=== PATIENT | female | born 1980 | race American Indian/Alaskan Native ===

== ENCOUNTER 2016-10-08 23:30 | Emergency (ER) | payer MEDICAID ==
[2016-10-09] MEDS ORDERED: D5NS 0.2% 1,000 ML IV ONE (01:04)
[2016-10-09 06:10] VITALS: BP 117/56
[2016-10-09] MEDS ORDERED: DILAUDID IV ONE ×2 (06:14→07:34)
[2016-10-09] MEDS ORDERED: ZOFRAN IV ONE (06:14)
--- NOTE | 2016-10-09 06:18 | Emergency Department Report ---
ED General Adult HPI - General Chief complaint: Sickle Cell Crisis Stated complaint: SICKLE CELL PAIN Time Seen by Provider: 10/09/16 06:07 Source: patient, family Mode of arrival: Wheelchair Limitations: No Limitations - History of Present Illness Initial comments: 35-year-old female presents to the emergency department complaining of bilateral leg pain for the past 2 days. Pain is aching in nature and doesn't radiate. Patient states this is her same sickle cell pain. She also reports worsening pain in her left hip secondary to her avascular necrosis. Patient states she was scheduled to have surgery in [place], but moved to this area 3 months ago. In the past 3 months, the patient states she has not obtained a primary care physician. She is not currently on any home medications. There are no other complaints. -: Gradual, days(s) (2) Location: left, right, lower extremity Radiation: non-radiation Severity scale (0 -10): 10 Quality: aching Consistency: constant Improves with: none Worsens with: none Associated Symptoms: denies other symptoms Treatments Prior to Arrival: none - Related Data Previous Rx's Medication Instructions Recorded Last Taken Type oxyCODONE /ACETAMINOPHEN [Percocet 1 tab PO Q6HR PRN #20 tablet 10/09/16 Unknown Rx 5/325] Allergies Allergy/AdvReac Type Severity Reaction Status Date / Time NSAIDS (Non-Steroidal Allergy Intermediate Unknown Verified 07/14/16 18:51 Anti-Inflamma ED Review of Systems ROS: Stated complaint: SICKLE CELL PAIN Other details as noted in HPI Comment: All other systems reviewed and negative Musculoskeletal: arthralgia, myalgia ED Past Medical Hx - Past Medical History Previous Medical History?: Yes Hx Sickle Cell Disease: Yes (Type SC) Hx Asthma: Yes 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 - Surgical History Past Surgical History?: Yes Additional Surgical History: c-secx7, hernia, nerve - Family History Family history: no significant - Social History Smoking Status: Never Smoker Substance Use Type: None - Medications Home Medications: Home Medications Medication Instructions Recorded Confirmed Last Taken Type oxyCODONE /ACETAMINOPHEN [Percocet 1 tab PO Q6HR PRN #20 tablet 10/09/16 Unknown Rx 5/325] ED Physical Exam - General Limitations: No Limitations General appearance: alert, in no apparent distress - Head Head exam: Present: atraumatic, normocephalic - Eye Eye exam: Present: normal appearance, PERRL, EOMI - ENT ENT exam: Present: normal exam, normal orophraynx, mucous membranes moist - Neck Neck exam: Present: normal inspection, full ROM. Absent: tenderness - Respiratory Respiratory exam: Present: normal lung sounds bilaterally. Absent: respiratory distress - Cardiovascular Cardiovascular Exam: Present: regular rate, normal rhythm, normal heart sounds - GI/Abdominal GI/Abdominal exam: Present: soft, normal bowel sounds. Absent: distended, tenderness - Extremities Exam Extremities exam: Present: normal inspection, full ROM. Absent: tenderness - Back Exam Back exam: Present: normal inspection, full ROM. Absent: tenderness - Neurological Exam Neurological exam: Present: alert, oriented X3. Absent: motor sensory deficit - Skin Skin exam: Present: warm, dry, intact ED Course Vital Signs 10/09/16 10/09/16 10/09/16 00:59 06:08 06:41 Temperature 98.7 F 98.5 F Pulse Rate 77 75 Respiratory 18 18 18 Rate Blood Pressure 121/73 Blood Pressure 117/56 [Right] O2 Sat by Pulse 100 95 Oximetry 10/09/16 06:43 Temperature Pulse Rate Respiratory 18 Rate Blood Pressure Blood Pressure [Right] O2 Sat by Pulse 98 Oximetry ED Medical Decision Making - Lab Data Result diagrams: 10/09/16 06:10 - Medical Decision Making Laboratory results reviewed and discussed with the patient. Patient reports pain is much improved with medication. Patient will be discharged home at this time to follow up with a primary care physician. - Differential Diagnosis sickle cell pain crisis, anemia Critical care attestation.: If time is entered above; I have spent that time in minutes in the direct care of this critically ill patient, excluding procedure time. ED Disposition Clinical Impression: Sickle cell pain crisis Disposition: DISCHARGED TO HOME OR SELFCARE Is pt being admited?: No Condition: Stable Instructions: Sickle Cell Crisis (ED) Prescriptions: oxyCODONE /ACETAMINOPHEN [Percocet 5/325] 1 tab PO Q6HR PRN #20 tablet PRN Reason: Pain Referrals: URI MURCIA DO [Staff Physician] - 3-5 Days Time of Disposition: 08:22
[2016-10-09 06:23] LABS: Basophils % (Auto) 0.5 % (0.0-1.8); Hematocrit 33.8 % (30.3-42.9); Hemoglobin 11.4 gm/dl (10.1-14.3); Mean Corpuscular HGB Conc 34 % (30-34); Mean Corpuscular Hemoglobin 28 pg (28-32); Mean Corpuscular Volume 84 fl (79-97); Platelet Count 301 K/mm3 (140-440); Red Blood Count 4.04 M/mm3 (3.65-5.03); Red Cell Distribution Width 16.6 % (13.2-15.2); Reticulocyte % 1.43 % (0.78-2.58); White Blood Count 8.2 K/mm3 (4.5-11.0)
== END 2016-10-09 09:14 | disposition home or self-care (01) ==
LOC: ED 23:30
DX: D57.00 Hb-SS disease with crisis, unspecified (principal); J45.909 Unspecified asthma, uncomplicated
CPT/HCPCS: 36415; 85025; 85045; 96361; 96374; 96375; 96376; 99284; J1170; J2405

== ENCOUNTER 2016-11-01 23:35 | Emergency (ER) | payer MEDICAID ==
[2016-11-01 23:45] VITALS: BP 108/58
== END 2016-11-01 23:43 | disposition left against medical advice (07) ==
LOC: ED 23:35
DX: D57.00 Hb-SS disease with crisis, unspecified (principal); R07.9 Chest pain, unspecified; M79.604 Pain in right leg; M79.605 Pain in left leg; Z88.8 Allergy status to other drugs, medicaments and biological substances; Z53.21 Procedure and treatment not carried out due to patient leaving prior to being seen by health care provider
CPT/HCPCS: 93005; 93010

== ENCOUNTER 2016-12-28 22:52 | Inpatient (IN) | payer MEDICAID ==
[2016-12-28] MEDS ORDERED: D5NS 0.2% 1,000 ML IV SCH (23:45)
[2016-12-29] MEDS ORDERED: BENADRYL IV ONE (02:38)
[2016-12-29] MEDS ORDERED: DILAUDID IV ONE ×3 (02:38→05:12)
[2016-12-29] MEDS ORDERED: ZOFRAN IV ONE (02:38)
[2016-12-29 02:58] LABS: Basophils % (Auto) 0.8 % (0.0-1.8); Hematocrit 34.6 % (30.3-42.9); Hemoglobin 11.5 gm/dl (10.1-14.3); Mean Corpuscular HGB Conc 33 % (30-34); Mean Corpuscular Hemoglobin 27 pg (28-32); Mean Corpuscular Volume 83 fl (79-97); Platelet Count 230 K/mm3 (140-440); Red Blood Count 4.19 M/mm3 (3.65-5.03); Red Cell Distribution Width 18.5 % (13.2-15.2); Reticulocyte % 1.53 % (0.78-2.58); White Blood Count 5.4 K/mm3 (4.5-11.0)
[2016-12-29 03:15] LABS: Anion Gap 18 mmol/L; Blood Urea Nitrogen 6 mg/dL (7-17); Carbon Dioxide 20 mmol/L (22-30); Chloride 103.2 mmol/L (98-107); Glucose 84 mg/dL (65-100); Sodium 137 mmol/L (137-145)
[2016-12-29 03:47] LABS: INR 0.98 (0.87-1.13)
[2016-12-29 03:48] LABS: Partial Thromboplastin Time 27.4 Sec. (24.2-36.6)
[2016-12-29 05:15] LABS: Creatine Kinase 97 units/L (30-135)
[2016-12-29 05:22] LABS: Creatine Kinase MB < 1.0 ng/mL (0.0-4.0)
--- NOTE | 2016-12-29 05:33 | Emergency Department Report ---
ED General Adult HPI - General Chief complaint: Sickle Cell Crisis Stated complaint: CHEST PAIN Time Seen by Provider: 12/29/16 02:27 Source: patient, family Mode of arrival: Ambulatory Limitations: No Limitations - History of Present Illness Initial comments: 36-year-old female with past medical history asthma, dvt, sickle cell SC, and left avascular necrosis and chronic pain presents to the hospital complaining of chest pain 1 day, left leg pain secondary to sickle cell and a past necrosis , and diarrhea. No reports of abdominal pain, nausea, vomiting. Patient states she has had a cough productive of sputum and reports a recent temperature high of 100.3. She states other family members are household were sick and she was nursing the back to [facility]. Patient's chest pain is in the sternal area, described as intermittent pressure rated moderate to severe in intensity, worse with palpation and movement. Left leg pain also constant, severe, and hip pain worse with movement. Patient has a cane to aid with ambulation. Patient has a history of DVT and is currently on Coumadin. Denies [place] filter placement and she has not had a PE in the past. 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 Pt has not had a port in 5 years since it was removed due to infection. Severity scale (0 -10): 8 - Related Data Previous Rx's Medication Instructions Recorded Last Taken Type oxyCODONE /ACETAMINOPHEN [Percocet 1 tab PO Q6HR PRN #20 tablet 10/09/16 Unknown Rx 5/325] Allergies Allergy/AdvReac Type Severity Reaction Status Date / Time NSAIDS (Non-Steroidal Allergy Intermediate Unknown Verified 07/14/16 18:51 Anti-Inflamma ED Review of Systems ROS: Stated complaint: CHEST PAIN Other details as noted in HPI Comment: All other systems reviewed and negative Other: Constitutional: as per hpi Eyes: No eye pain visual changes ENT: No ear pain or throat pain Neck: Denies pain Respiratory: as per Cardiovascular: as per hpi GI: Denies abdominal pain : Denies dysuria Musculoskeletal: as per hpi Skin: Denies rash, lesions, erythema Neurologic: Denies headache, numbness, weakness Psychiatric: Denies suicidal ideation, hallucinations ED Past Medical Hx - Past Medical History Previous Medical History?: Yes Hx Deep Vein Thrombosis: Yes (on coumadin) Hx Sickle Cell Disease: Yes (Type SC) Hx Asthma: Yes 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 - Surgical History Past Surgical History?: Yes Additional Surgical History: c-secx7, hernia, nerve - Social History Smoking Status: Current Every Day Smoker Substance Use Type: None - Medications Home Medications: Home Medications Medication Instructions Recorded Confirmed Last Taken Type oxyCODONE /ACETAMINOPHEN [Percocet 1 tab PO Q6HR PRN #20 tablet 10/09/16 Unknown Rx 5/325] ED Physical Exam - General Limitations: No Limitations - Other Other exam information: General: Mild to moderate distress due to pain Head exam: Atraumatic, normocephalic Eyes exam: Normal appearance, pink conjunctivae ENT: Moist mucous membrane, normal oropharynx Neck exam: Normal inspection, full range of motion Respiratory exam: Clear to auscultation bilateral, no wheezes, rales, crackles. Reproducible sternal chest tenderness Cardiovascular: Normal rate and rhythm, normal heart sounds Abdomen: Soft, nondistended, and nontender, with normal bowel sounds, no rebound, or guarding Extremity: Limited motion of hip secondary to pain. Shortening or deformity Back: Normal Inspection, full range of motion, no tenderness Neurologic: Alert, oriented x3, cranial nerves intact, no motor or sensory deficit Psychiatric: normal affect, normal mood Skin: Warm, dry, intact ED Course Vital Signs 12/28/16 12/29/16 12/29/16 23:22 02:56 03:01 Temperature 98.8 F Pulse Rate 99 H 83 Respiratory 16 20 16 Rate Blood Pressure 116/75 108/38 [Right] O2 Sat by Pulse 100 100 Oximetry - Reevaluation(s) Reevaluation #1: 12/29/16 05:48 Patient received multiple doses of Dilaudid without improvement. - Consultations Consultation #1: 12/29/16 05:36 Pt requesting Ortho consult receive another opinion recording her avascular necrosis. Patient states other surgeons have recommended weight loss prior to surgery but patient states she will like another opinion. I ordered a hip and left pelvis x-ray and ordered a consult to be performed by Dr. Pardo or Jean-Claude. I did not speak to the physician and they can be called during the admission since it is a chronic ongoing issue. - EJ/Peripheral Line Neck L Time Out Performed: Yes Indications: nurses unable to establis Skin Cleansed in Sterile Fashion: Yes Size: 20 Dressing Placed: Tegaderm Patient Tolerated Procedure: well, no complications Neck R Time Out Performed: Yes Indications: nurses unable to establis Skin Cleansed in Sterile Fashion: Yes Size: 20 Patient Tolerated Procedure: well, no complications Additional Comments: initial EJ on the left infiltrated and had to be replaced. ED Medical Decision Making - Lab Data Result diagrams: 12/29/16 02:37 12/29/16 02:40 Lab Results 12/29/16 12/29/16 12/29/16 Range/Units 02:37 02:40 02:40 WBC 5.4 (4.5-11.0) K/mm3 RBC 4.19 (3.65-5.03) M/mm3 Hgb 11.5 (10.1-14.3) gm/dl Hct 34.6 (30.3-42.9) % MCV 83 (79-97) fl MCH 27 L (28-32) pg MCHC 33 (30-34) % RDW 18.5 H (13.2-15.2) % Plt Count 230 (140-440) K/mm3 Lymph % (Auto) 31.2 (13.4-35.0) % [place] % (Auto) 9.9 H (0.0-7.3) % Eos % (Auto) 1.0 (0.0-4.3) % Baso % (Auto) 0.8 (0.0-1.8) % Lymph # 1.7 (1.2-5.4) K/mm3 [place] # 0.5 (0.0-0.8) K/mm3 Eos # 0.1 (0.0-0.4) K/mm3 Baso # 0.0 (0.0-0.1) K/mm3 Seg Neutrophils % 57.1 (40.0-70.0) % Seg Neutrophils # 3.1 (1.8-7.7) K/mm3 Percent Retic 1.53 (0.78-2.58) % PT (12.2-14.9) Sec. INR (0.87-1.13) APTT (24.2-36.6) Sec. Sodium 137 (137-145) mmol/L Potassium 4.0 (3.6-5.0) mmol/L Chloride 103.2 (98-107) mmol/L Carbon Dioxide 20 L (22-30) mmol/L Anion Gap 18 mmol/L BUN 6 L (7-17) mg/dL Creatinine 0.6 L (0.7-1.2) mg/dL Estimated GFR > 60 ml/min BUN/Creatinine Ratio 10.00 % Glucose 84 (65-100) mg/dL Calcium 9.0 (8.4-10.2) mg/dL Total Creatine Kinase 97 (30-135) units/L CK-MB (CK-2) < 1.0 (0.0-4.0) ng/mL CK-MB (CK-2) Rel Index 1.0 (0-4) Troponin T < 0.010 (0.00-0.029) ng/mL 12/29/16 Range/Units 02:50 WBC (4.5-11.0) K/mm3 RBC (3.65-5.03) M/mm3 Hgb (10.1-14.3) gm/dl Hct (30.3-42.9) % MCV (79-97) fl MCH (28-32) pg MCHC (30-34) % RDW (13.2-15.2) % Plt Count (140-440) K/mm3 Lymph % (Auto) (13.4-35.0) % [place] % (Auto) (0.0-7.3) % Eos % (Auto) (0.0-4.3) % Baso % (Auto) (0.0-1.8) % Lymph # (1.2-5.4) K/mm3 [place] # (0.0-0.8) K/mm3 Eos # (0.0-0.4) K/mm3 Baso # (0.0-0.1) K/mm3 Seg Neutrophils % (40.0-70.0) % Seg Neutrophils # (1.8-7.7) K/mm3 Percent Retic (0.78-2.58) % PT 12.9 (12.2-14.9) Sec. INR 0.98 (0.87-1.13) APTT 27.4 (24.2-36.6) Sec. Sodium (137-145) mmol/L Potassium (3.6-5.0) mmol/L Chloride (98-107) mmol/L Carbon Dioxide (22-30) mmol/L Anion Gap mmol/L BUN (7-17) mg/dL Creatinine (0.7-1.2) mg/dL Estimated GFR ml/min BUN/Creatinine Ratio % Glucose (65-100) mg/dL Calcium (8.4-10.2) mg/dL Total Creatine Kinase (30-135) units/L CK-MB (CK-2) (0.0-4.0) ng/mL CK-MB (CK-2) Rel Index (0-4) Troponin T (0.00-0.029) ng/mL - EKG Data -: EKG Interpreted by Me (sinus rhythm rate 92) - EKG Data When compared to previous EKG there are: no significant change (compared to ) - Radiology Data Radiology results: image reviewed (cxr: naf) interpreted by me: left hip xray pending - Medical Decision Making Plan to admit patient to the hospital for the treatment given continued pain. Normal reticulocyte count and H&H. Hip x-ray and orthopedic consult was per patient request - Differential Diagnosis sickle cell, avascular necrosis, costochondritis, pneumonia Critical Care Time: No Critical care attestation.: If time is entered above; I have spent that time in minutes in the direct care of this critically ill patient, excluding procedure time. ED Disposition Clinical Impression: Sickle cell crisis, Sickle cell disease, type SC, Chest wall pain, Chronic left hip pain, Avascular necrosis, History of DVT (deep vein thrombosis), Subtherapeutic international normalized ratio (INR) Disposition: OP ADMITTED IP TO THIS HOSP Is pt being admited?: Yes Condition: Stable Time of Disposition: 05:32 (Dr Daley/hosp)
--- NOTE | 2016-12-29 07:15 | Admit Criteria Form ---
Admission Criteria Documentation: SICKLE CELL DISEASE Clinical Indications for Admission to Inpatient Care (Place 'X' for any and all applicable criteria): Admission is indicated for ANY ONE of the following(1)(2)(3)(4)(5): [X ]I. Inpatient admission required rather than observation care because of ANY ONE of the following: [ ]a) Altered mental status [ ]b) High fever or infection requiring inpatient admission as indicated by ANY ONE of the following: [ ]A. Appropriate outpatient observation care antimicrobial treatment unavailable, not effective, or not appropriate for infection [ ]B. Documented bacteremia [ ]C. Temp >104.9F (40.5C) (oral) [ ]D. Temp >103.1F (oral) or <96.8F(rectal) that does not respond to all emergency treatment measures [ ]c) Supplemental O2 or respiratory therapy for over 24 h that are performable only in acute inpatient setting [ ]d) Continuous parenteral narcoticsother major pain intervention for >24 h performable only in acute inpatient setting. [ ]e) Exchange transfusion [ X]f) Other condition, treatment or monitoring requiring inpatient admission [ ]II. Acute chest syndrome indicated by ALL of the following (10): [ ]a) New alveolar infiltrate involving at least one lung segment [ ]b) Associated pulmonary symptoms or findings as indicated by ANY ONE of the following: [ ]i) Chest pain [ ]ii) Hypoxemia [ ]iii) Tachypnea/dyspnea [ ]iv) Wheezing [ ]v) Cough [ ]vi) Sputum production [ ]III. Significant hypoxemia or acidosis (more severe than baseline) [ ]IV. Emergent surgery needed (eg, acute cholecystitis) [ ]V. -related complication(11) [ ]. Splenic or hepatic sequestration(12) [ ]VII. Aplastic crisis [ ]VIII. Priapism or other vascular complication(13) [ ]IX. Traumatic hyphema [A](14) [ ]X. Underlying condition requiring hospitalization (eg, osteomyelitis) [ ]XI. Signs or symptoms of central nervous system injury indicated by ANY ONE of the following: [ ]a) Stroke(9) [ ]b) Seizure [ ]c) Other significant central nervous system symptom or event [ ]XII. Acute renal failure Extended stay beyond goal length of stay may be needed for: [ ]a) Inadequate pain control [ ]b) Acute chest syndrome [ ]c) Sequestration or aplastic crisis (12) [ ]d) Pneumonia and asthma exacerbation [ ]e) Neurologic or vascular complications (25) [ ]f) Infection (eg, osteomyelitis) that requires ongoing treatment) The original [facility] [employer] content created by [facility] has been revised. The portions of the content which have been revised are identified through the use of italic text or in bold, and [facility] has neither reviewed nor approved the modified material. All other unmodified content is copyright [facility]. Please see references footnoted in the original [facility] edition 2016 Admission Criteria Met: Yes
[2016-12-29] MEDS ORDERED: PROAIR IH PRN (07:42)
--- NOTE | 2016-12-29 07:42 | History and Physical Report ---
History of Present Illness Date of examination: 12/29/16 History of present illness: 36-year-old female with past medical history asthma, dvt, sickle cell SC, and left avascular necrosis and chronic pain presents to the hospital complaining of chest pain 1 day, left leg pain secondary to sickle cell and a past necrosis , and diarrhea. No reports of abdominal pain, nausea, vomiting. Patient states she has had a cough productive of sputum and reports a recent temperature high of 100.3. She states other family members are household were sick and she was nursing the back to [facility]. Patient's chest pain is in the sternal area, described as intermittent pressure rated moderate to severe in intensity, worse with palpation and movement. Left leg pain also constant, severe, and hip pain worse with movement. Patient has a cane to aid with ambulation. Patient has a history of DVT and is currently on Coumadin. Denies [place] filter placement and she has not had a PE in the past. Patient's billing checker is Dr. Ma. Pt has not had a port in 5 years since it was removed due to infection Past History Past Medical History: GERD, other (sickle cell disease) Medications and Allergies Allergies Allergy/AdvReac Type Severity Reaction Status Date / Time NSAIDS (Non-Steroidal Allergy Intermediate Unknown Verified 07/14/16 18:51 Anti-Inflamma Home Medications Medication Instructions Recorded Confirmed Last Taken Type ALBUTEROL Inhaler [Proair] 2 puff IH QID PRN 12/29/16 12/29/16 12/28/16 History Cyclobenzaprine HCl [Flexeril 5 MG 5 mg PO TID 12/29/16 12/29/16 12/28/16 History TAB] Famotidine [Pepcid] 40 mg PO QHS 12/29/16 12/29/16 12/28/16 History Folic Acid 20 mg PO QDAY 12/29/16 12/29/16 12/28/16 History Active Meds: Active Medications Dextrose/Sodium Chloride (D5ns 0.2%) 1,000 mls @ 250 mls/hr IV DIRECT LETTY Last Admin: 12/29/16 03:10 Dose: 250 mls/hr Review of Systems Musculoskeletal: other (joint pain) Exam - Constitutional Vitals: Temp Pulse Resp BP Pulse Ox 98.8 F 91 H 18 116/50 98 12/28/16 23:22 12/29/16 05:42 12/29/16 05:42 12/29/16 05:42 12/29/16 05:42 General appearance: Present: mild distress - EENT Eyes: Present: PERRL, EOM intact ENT: hearing intact, clear oral mucosa - Neck Neck: Present: supple, normal ROM - Respiratory Respiratory effort: normal Respiratory: bilateral: CTA - Cardiovascular Rhythm: regular Heart Sounds: Present: S1 & S2 - Extremities Extremities: no ischemia, No edema Extremity abnormal: tenderness - Abdominal General gastrointestinal: Present: soft, non-tender, non-distended, normal bowel sounds - Musculoskeletal Musculoskeletal: strength equal bilaterally - Psychiatric Psychiatric: appropriate mood/affect, intact judgment & insight - Neurologic Neurologic: CNII-XII intact, moves all extremities Results - Labs CBC & Chem 7: 12/29/16 02:37 12/29/16 02:40 Labs: Laboratory Last Values WBC 5.4 K/mm3 (4.5-11.0) 12/29/16 02:37 RBC 4.19 M/mm3 (3.65-5.03) 12/29/16 02:37 Hgb 11.5 gm/dl (10.1-14.3) 12/29/16 02:37 Hct 34.6 % (30.3-42.9) 12/29/16 02:37 MCV 83 fl (79-97) 12/29/16 02:37 MCH 27 pg (28-32) L 12/29/16 02:37 MCHC 33 % (30-34) 12/29/16 02:37 RDW 18.5 % (13.2-15.2) H 12/29/16 02:37 Plt Count 230 K/mm3 (140-440) 12/29/16 02:37 Lymph % (Auto) 31.2 % (13.4-35.0) 12/29/16 02:37 [place] % (Auto) 9.9 % (0.0-7.3) H 12/29/16 02:37 Eos % (Auto) 1.0 % (0.0-4.3) 12/29/16 02:37 Baso % (Auto) 0.8 % (0.0-1.8) 12/29/16 02:37 Lymph # 1.7 K/mm3 (1.2-5.4) 12/29/16 02:37 [place] # 0.5 K/mm3 (0.0-0.8) 12/29/16 02:37 Eos # 0.1 K/mm3 (0.0-0.4) 12/29/16 02:37 Baso # 0.0 K/mm3 (0.0-0.1) 12/29/16 02:37 Seg Neutrophils % 57.1 % (40.0-70.0) 12/29/16 02:37 Seg Neutrophils # 3.1 K/mm3 (1.8-7.7) 12/29/16 02:37 Percent Retic 1.53 % (0.78-2.58) 12/29/16 02:37 PT 12.9 Sec. (12.2-14.9) 12/29/16 02:50 INR 0.98 (0.87-1.13) 12/29/16 02:50 APTT 27.4 Sec. (24.2-36.6) 12/29/16 02:50 Sodium 137 mmol/L (137-145) 12/29/16 02:40 Potassium 4.0 mmol/L (3.6-5.0) 12/29/16 02:40 Chloride 103.2 mmol/L (98-107) 12/29/16 02:40 Carbon Dioxide 20 mmol/L (22-30) L 12/29/16 02:40 Anion Gap 18 mmol/L 12/29/16 02:40 BUN 6 mg/dL (7-17) L 12/29/16 02:40 Creatinine 0.6 mg/dL (0.7-1.2) L 12/29/16 02:40 Estimated GFR > 60 ml/min 12/29/16 02:40 BUN/Creatinine Ratio 10.00 % 12/29/16 02:40 Glucose 84 mg/dL (65-100) 12/29/16 02:40 Calcium 9.0 mg/dL (8.4-10.2) 12/29/16 02:40 Total Creatine Kinase 97 units/L (30-135) 12/29/16 02:40 CK-MB (CK-2) < 1.0 ng/mL (0.0-4.0) 12/29/16 02:40 CK-MB (CK-2) Rel Index 1.0 (0-4) 12/29/16 02:40 Troponin T < 0.010 ng/mL (0.00-0.029) 12/29/16 02:40 Assessment and Plan - Patient Problems (1) Chest wall pain Current Visit: Yes Status: Acute Plan to address problem: Most likely secondary to Sickle cell disease, Adequate pain control, Hematology consult, O2, CXR, Hydroxyurea (2) Chronic left hip pain Current Visit: Yes Status: Acute Plan to address problem: patient has history of Avascular necrosis but has not had surgical repair secondary to obesity, Orthopedic consult (3) Sickle cell crisis Current Visit: Yes Status: Acute Plan to address problem: IVF hydration, Adequate pain control, Hematology consult, Folic acid, Hydroxyurea,
[2016-12-29] MEDS ORDERED: TYLENOL PO PRN (07:43)
[2016-12-29] MEDS ORDERED: DULCOLAX PR PRN (07:43)
[2016-12-29] MEDS ORDERED: PERCOCET 5/325 PO PRN (07:43)
[2016-12-29] MEDS ORDERED: MORPHINE IV PRN (07:43)
[2016-12-29] MEDS ORDERED: ZOFRAN IV PRN (07:43)
[2016-12-29] MEDS ORDERED: MILK OF MAGNESIA PO PRN (07:43)
[2016-12-29] MEDS ORDERED: NON-FORMULARY (Cyclobenzaprine Hcl [Flexeril 5 Mg Tab] 5 MG) PO SCH (08:00)
--- NOTE | 2016-12-29 08:14 | XRay Report ---
CHEST 1 VIEW INDICATION: Cough, chest wall pain. COMPARISON: None similar. FINDINGS: Portable, single, frontal chest radiograph demonstrates normal cardiomediastinal silhouette. Clear lungs. Intact bones. Patient tilted to the left. Few extrinsic artifacts noted about the neck. CONCLUSION: No acute disease in the chest. Thank you for the opportunity to participate in this patient's care.
[2016-12-29] MEDS: FLEXERIL PO SCH ×4 (08:43→23:09)
[2016-12-29] MEDS ORDERED: PROVENTIL IH PRN (09:14)
[2016-12-29] MEDS ORDERED: LOVENOX SUB-Q SCH (10:00)
[2016-12-29] MEDS ORDERED: FOLIC ACID 20 MG PO SCH (10:00)
[2016-12-29] MEDS: FOLVITE PO SCH (12:01)
[2016-12-29] MEDS: LOVENOX SUB-Q SCH (12:01)
[2016-12-29] MEDS: DILAUDID IV PRN ×3 (14:06→23:10)
--- NOTE | 2016-12-29 14:55 | Consultation ---
History of Present Illness - HPI Consult date: 12/29/16 Consult reason: joint pain Medications and Allergies Allergies Allergy/AdvReac Type Severity Reaction Status Date / Time NSAIDS (Non-Steroidal Allergy Intermediate Unknown Verified 07/14/16 18:51 Anti-Inflamma Home Medications Medication Instructions Recorded Confirmed Last Taken Type ALBUTEROL Inhaler [Proair] 2 puff IH QID PRN 12/29/16 12/29/16 12/28/16 History Cyclobenzaprine HCl [Flexeril 5 MG 5 mg PO TID 12/29/16 12/29/16 12/28/16 History TAB] Famotidine [Pepcid] 40 mg PO QHS 12/29/16 12/29/16 12/28/16 History Folic Acid 20 mg PO QDAY 12/29/16 12/29/16 12/28/16 History Active Meds: Active Medications Acetaminophen (Tylenol) 650 mg PO Q4H PRN PRN Reason: Pain MILD(1-3)/Fever >100.5/KEMP Albuterol (Proventil) 2.5 mg IH Q6HRT PRN PRN Reason: Shortness Of Breath Bisacodyl (Dulcolax) 10 mg [place] QDAY PRN PRN Reason: Constipation unrelieved by [facility] Cyclobenzaprine HCl (Flexeril) 5 mg PO TID [facility] Last Admin: 12/29/16 08:43 Dose: 5 mg Enoxaparin Sodium (Lovenox) 40 mg SUB-Q QDAY@1000 [facility] Last Admin: 12/29/16 12:01 Dose: 40 mg Famotidine (Pepcid) 40 mg PO [facility] Folic Acid (Folvite) 1 mg PO DAILY [facility] Last Admin: 12/29/16 12:01 Dose: 1 mg Hydromorphone HCl (Dilaudid) 2 mg IV Q4H PRN PRN Reason: Pain , Severe (7-10) Last Admin: 12/29/16 14:06 Dose: 2 mg Dextrose/Sodium Chloride (D5ns) 1,000 mls @ 125 mls/hr IV DIRECT [facility] Magnesium Hydroxide (Milk Of Magnesia) 30 ml PO Q4H PRN PRN Reason: Constipation Ondansetron HCl (Zofran) 4 mg IV Q8H PRN PRN Reason: N/V unrelieved by Reglan Oxycodone/Acetaminophen (Percocet 5/325) 1 tab PO Q6H PRN PRN Reason: Pain, Moderate (4-6) Assessment and Plan - Patient Problems (1) Avascular necrosis Current Visit: Yes Status: Chronic Plan to address problem: see voice dictation (2) Low back pain Current Visit: Yes Status: Chronic Qualifiers: Chronicity: C Back pain laterality: B Sciatica presence: S Sciatica laterality: S Plan to address problem: X ray L S spine/
--- NOTE | 2016-12-29 16:34 | XRay Report ---
AP AND LATERAL LUMBOSACRAL SPINE: The vertebral bodies are well mineralized and normal in alignment and vertebral height with well preserved interspace distances. The visualized portions of the posterior elements are normal. IMPRESSION: Normal study.
--- NOTE | 2016-12-29 16:38 | XRay Report ---
Left hip: History: Left hip pain/avascular necrosis. Routine views were obtained. Comparison is made to prior study of July 15, 2016. There is [id number] articulation of the superior joint. There is avulsion and sclerosis of a lateral superior acetabular spur that was previously attached. The left acetabulum appears shallow. Subchondral erosions are identified in the medial acetabulum and the articular margin of the medial hip is slightly irregular and inhomogeneous. Subchondral cyst is also noted superiorly. These findings were not previously noted. AP view of the right hip is unremarkable as are the SI joints, lower lumbar spine and bony pelvis. Impressions: Shallow left acetabulum, progressive degenerative left hip changes with avascular necrosis.
[2016-12-29] MEDS: D5NS 1,000 ML IV SCH (19:06)
--- NOTE | 2016-12-29 19:27 | Magnetic Resonance Report ---
FINAL REPORT PROCEDURE: MRI pelvis without contrast. TECHNIQUE: Magnetic resonance imaging of the pelvis was performed using standard sequences. CPT 04071 HISTORY: Left hip pain, AVN. COMPARISON: No prior studies are available for comparison. FINDINGS: The right hip appears normal. There is abnormal signal intensity involving the superior 3rd of the left femoral head. This has predominantly low signal intensity on T1 weighted imaging and brighter signal intensity on other sequences. There is mild flattening of the left femoral head. There is no significant collapse of the femoral head. The findings are consistent with avascular necrosis. There is a small left hip joint effusion. The surrounding muscles and subcutaneous fat are unremarkable. IMPRESSION: Avascular necrosis involving the left femoral head.
[2016-12-29] MEDS ORDERED: NON-FORMULARY (Famotidine [Pepcid] 40 MG) PO SCH (22:00)
[2016-12-29] MEDS: PEPCID PO SCH (23:08)
--- NOTE | 2016-12-29 23:44 | Consultation ---
CHIEF COMPLAINT: Pain, left hip, difficulty walking. HISTORY OF PRESENT ILLNESS: This is a 36-year-old female with increased BMI, known with sickle cell disease, admitted because of sickle cell crisis. She was in [place] where she was diagnosed with avascular necrosis, left hip and was recommended total hip arthroplasty. Subsequently, she moved to [facility]. She complains of pain to the buttocks region, left side, pain radiating into the posterior thigh and into the calf off and on, low back pain, and also pain into the anterior groin, left side radiating into the medial thigh and into the knee region. Pain is off and on, difficulty bearing weight and difficulty with walking. PHYSICAL EXAMINATION: Today reveals a female to her age, alert, oriented x 3. Vital signs appeared stable. She appears comfortable. Uses a cane for ambulation with moderate limping. Examination of hip area shows tenderness over the anterior hip, trochanteric region with pain on flexion, adduction, internal rotation. No leg length inequality. Quad strength, grade 5. Abductor strength grade 5. No neurovascular deficits. DIAGNOSTIC STUDIES: X-rays of the hip done approximately a year ago in this institution shows narrow joint space with mild deformity, femoral head and subchondral sclerosis consistent with avascular necrosis. DIAGNOSES: 1. Avascular necrosis, left hip. 2. Sickle cell disease with acute crisis. 3. Chronic pain. 4. Increased body mass index. 5. Low back pain. RECOMMENDATIONS: 1. Bed rest, pain control, and progressive ambulation, may need a walker, weightbearing as tolerated. We will ask physical therapy for evaluation. 2. We will need further workup of the left hip with MR scan as well as new x-rays to evaluate and staging the avascular necrosis Pending the outcome of this, she may consider elective total hip arthroplasty. Also, during this time, she is advised to continue with the weight loss plan. She has BMI is increased and therefore prognosis is poor.. She also complains of back pain, therefore we will obtain an x-ray of lumbar spine. I thank you for this consultation. JOB# [id number] LAVELLE/NATASHA STANLEY
[2016-12-30] MEDS: DILAUDID IV PRN ×4 (06:43→23:14)
[2016-12-30 07:02] LABS: Basophils % (Auto) 0.5 % (0.0-1.8); Eosinophils % (Auto) 2.5 % (0.0-4.3); Hematocrit 31.9 % (30.3-42.9); Hemoglobin 10.5 gm/dl (10.1-14.3); Mean Corpuscular HGB Conc 33 % (30-34); Mean Corpuscular Hemoglobin 28 pg (28-32); Mean Corpuscular Volume 84 fl (79-97); Platelet Count 234 K/mm3 (140-440); Red Blood Count 3.78 M/mm3 (3.65-5.03); Red Cell Distribution Width 18.7 % (13.2-15.2); White Blood Count 4.6 K/mm3 (4.5-11.0)
[2016-12-30 07:12] LABS: Alanine Aminotransferase 7 units/L (7-56); Albumin 3.3 g/dL (3.9-5); Albumin/Globulin Ratio 1.1 %; Alkaline Phosphatase 71 units/L (35-129); Anion Gap 15 mmol/L; Bilirubin,Total 0.2 mg/dL (0.1-1.2); Blood Urea Nitrogen 6 mg/dL (7-17); Calcium 8.6 mg/dL (8.4-10.2); Carbon Dioxide 23 mmol/L (22-30); Chloride 103.5 mmol/L (98-107); Glucose 93 mg/dL (65-100); Potassium 3.8 mmol/L (3.6-5.0); Sodium 138 mmol/L (137-145); Total Protein 6.3 g/dL (6.3-8.2)
[2016-12-30] MEDS: FLEXERIL PO SCH ×3 (08:52→21:51)
[2016-12-30] MEDS: LOVENOX SUB-Q SCH (10:59)
[2016-12-30] MEDS: FOLVITE PO SCH (11:00)
[2016-12-30] MEDS: HYDREA PO SCH (11:00)
[2016-12-30] MEDS ORDERED: PERCOCET 5/325 PO PRN (13:33)
[2016-12-30] MEDS: OxyCONTIN PO SCH (14:27)
--- NOTE | 2016-12-30 15:47 | Progress Note ---
Assessment and Plan Assessment and plan: Chest wall pain -Most likely secondary to Sickle cell disease, -cont Adequate pain control, Chronic left hip pain -patient has history of Avascular necrosis but has not had surgical repair secondary to obesity, -Orthopedic following, MRI result noted Sickle cell crisis -IVF hydration, Adequate pain control, -Hematology consult placed, Folic acid, Hydroxyurea, -Monitor H and H Morbid obesity, due to access calorie - dietary recommendation History Interval history: Pt seen and examined, c/o left hip pain tolerating diet, discussed plan of care at bedside Hospitalist Physical - Constitutional Vitals: Temp Pulse Resp BP Pulse Ox 98.1 F 91 H 20 101/64 92 12/30/16 11:15 12/30/16 11:15 12/30/16 11:15 12/30/16 11:15 12/30/16 08:00 General appearance: Present: mild distress, obese - EENT Eyes: Present: PERRL, EOM intact ENT: clear oral mucosa, dentition normal - Neck Neck: Present: supple, normal ROM - Respiratory Respiratory effort: normal Respiratory: bilateral: CTA - Cardiovascular Rhythm: regular Heart Sounds: Present: S1 & S2 - Extremities Extremities: No edema Peripheral Pulses: within normal limits - Abdominal General gastrointestinal: soft, non-tender, non-distended - Integumentary Integumentary: Present: warm, dry - Psychiatric Psychiatric: depressed - Neurologic Neurologic: no focal deficits Results - Labs CBC & Chem 7: 12/30/16 06:10 12/30/16 06:10 Labs: Laboratory Last Values WBC 4.6 K/mm3 (4.5-11.0) 12/30/16 06:10 RBC 3.78 M/mm3 (3.65-5.03) 12/30/16 06:10 Hgb 10.5 gm/dl (10.1-14.3) 12/30/16 06:10 Hct 31.9 % (30.3-42.9) 12/30/16 06:10 MCV 84 fl (79-97) 12/30/16 06:10 MCH 28 pg (28-32) 12/30/16 06:10 MCHC 33 % (30-34) 12/30/16 06:10 RDW 18.7 % (13.2-15.2) H 12/30/16 06:10 Plt Count 234 K/mm3 (140-440) 12/30/16 06:10 Lymph % (Auto) 46.7 % (13.4-35.0) H 12/30/16 06:10 [place] % (Auto) 10.9 % (0.0-7.3) H 12/30/16 06:10 Eos % (Auto) 2.5 % (0.0-4.3) 12/30/16 06:10 Baso % (Auto) 0.5 % (0.0-1.8) 12/30/16 06:10 Lymph # 2.2 K/mm3 (1.2-5.4) 12/30/16 06:10 [place] # 0.5 K/mm3 (0.0-0.8) 12/30/16 06:10 Eos # 0.1 K/mm3 (0.0-0.4) 12/30/16 06:10 Baso # 0.0 K/mm3 (0.0-0.1) 12/30/16 06:10 Seg Neutrophils % 39.4 % (40.0-70.0) L 12/30/16 06:10 Seg Neutrophils # 1.8 K/mm3 (1.8-7.7) 12/30/16 06:10 Percent Retic 1.53 % (0.78-2.58) 12/29/16 02:37 PT 12.9 Sec. (12.2-14.9) 12/29/16 02:50 INR 0.98 (0.87-1.13) 12/29/16 02:50 APTT 27.4 Sec. (24.2-36.6) 12/29/16 02:50 Sodium 138 mmol/L (137-145) 12/30/16 06:10 Potassium 3.8 mmol/L (3.6-5.0) 12/30/16 06:10 Chloride 103.5 mmol/L (98-107) 12/30/16 06:10 Carbon Dioxide 23 mmol/L (22-30) 12/30/16 06:10 Anion Gap 15 mmol/L 12/30/16 06:10 BUN 6 mg/dL (7-17) L 12/30/16 06:10 Creatinine 0.5 mg/dL (0.7-1.2) L 12/30/16 06:10 Estimated GFR > 60 ml/min 12/30/16 06:10 BUN/Creatinine Ratio 12.00 % 12/30/16 06:10 Glucose 93 mg/dL (65-100) 12/30/16 06:10 Calcium 8.6 mg/dL (8.4-10.2) 12/30/16 06:10 Total Bilirubin 0.2 mg/dL (0.1-1.2) 12/30/16 06:10 AST 11 units/L (5-40) 12/30/16 06:10 ALT 7 units/L (7-56) 12/30/16 06:10 Alkaline Phosphatase 71 units/L (35-129) 12/30/16 06:10 Total Creatine Kinase 97 units/L (30-135) 12/29/16 02:40 CK-MB (CK-2) < 1.0 ng/mL (0.0-4.0) 12/29/16 02:40 CK-MB (CK-2) Rel Index 1.0 (0-4) 12/29/16 02:40 Troponin T < 0.010 ng/mL (0.00-0.029) 12/29/16 02:40 Total Protein 6.3 g/dL (6.3-8.2) 12/30/16 06:10 Albumin 3.3 g/dL (3.9-5) L 12/30/16 06:10 Albumin/Globulin Ratio 1.1 % 12/30/16 06:10
[2016-12-30] MEDS: D5NS 1,000 ML IV SCH (17:49)
[2016-12-30] MEDS: PEPCID PO SCH (21:51)
[2016-12-31] MEDS: OxyCONTIN PO SCH ×2 (00:34→10:39)
[2016-12-31 05:08] LABS: Hematocrit 31.4 % (30.3-42.9); Hemoglobin 10.2 gm/dl (10.1-14.3)
[2016-12-31] MEDS: DILAUDID IV PRN ×2 (06:40→12:27)
[2016-12-31] MEDS: FLEXERIL PO SCH ×2 (08:54→16:00)
--- NOTE | 2016-12-31 09:11 | Discharge Summary ---
Providers - Providers Date of Admission: 12/29/16 07:43 Date of discharge: 12/31/16 Attending physician: DALLAS ROBBINS 12/29/16 14:45 Physical Therapy Evaluation and Treat [CONS] Routine Comment: Reason For Exam: AVN hip Weight bearing status?: Full wt bearing Assistive devices?: walker? Hospitalization Condition: Stable Hospital course: 36-year-old female with past medical history asthma, dvt not on anticoagulation , sickle cell disease, and left avascular necrosis with chronic pain presents to the hospital complaining of chest pain 1 day, worsening left leg pain. She had MRI of the left leg showed left hip avascular necrosis. LLE venous doppler was negative for any acute DVT. Her symptom improved with supportive care and pain management. Orthopedics recommended out pt follow up for elective hip replacement. Patient was ambulatory and noted to walk out of her room without any physical assistance. She was discharged home in stable condition. Discharge Diagnosis: Chest wall pain -Most likely secondary to Sickle cell disease, -resolved with Adequate pain control, Chronic left hip pain -patient has history of Avascular necrosis but has not had surgical repair secondary to obesity, -Orthopedic recommended outpt elective surgery and wt loss Sickle cell crisis -H and H remained stable -cont Folic acid, Hydroxyurea, Morbid obesity, due to access calorie - dietary recommendation H/o Asthma, not on any exacerbation H/o DVT, LE venous doppler was negative for any acute DVT. Disposition: DISCHARGED TO HOME OR SELFCARE Time spent for discharge: 32 minutes Core Measure Documentation - Palliative Care Palliative Care/ Comfort Measures: Not Applicable - Core Measures Any of the following diagnoses?: none Exam - Constitutional Vitals: Temp Pulse Resp BP Pulse Ox 98.4 F 77 18 99/60 98 12/31/16 05:00 12/31/16 05:00 12/31/16 05:00 12/31/16 05:00 12/31/16 00:00 General appearance: Present: no acute distress - EENT Eyes: Present: EOM intact ENT: clear oral mucosa - Neck Neck: Present: supple, normal ROM - Respiratory Respiratory: bilateral: CTA - Cardiovascular Rhythm: regular Heart Sounds: Present: S1 & S2 - Extremities Extremities: no ischemia Peripheral Pulses: within normal limits - Abdominal General gastrointestinal: Present: soft, non-tender - Integumentary Integumentary: Present: warm, dry - Psychiatric Psychiatric: intact judgment & insight - Neurologic Neurologic: moves all extremities Plan Activity: advance as tolerated Weight Bearing Status: Non-Weight Bearing Diet: low cholesterol, low salt Additional Instructions: F/U with orthopedic surgeon out patient for elective rt hip arthoplasty. Follow up with: JANESSA DENTON [Other] - 3-5 Days Prescriptions: Hydroxyurea [Hydrea] 500 mg PO QDAY #300 capsule oxyCODONE /ACETAMINOPHEN [Percocet 5/325 mg] 1 tab PO Q6H PRN #20 tablet PRN Reason: Pain, Moderate (4-6)
[2016-12-31 09:33] VITALS: BP 116/66
[2016-12-31] MEDS: HYDREA PO SCH (10:38)
[2016-12-31] MEDS: FOLVITE PO SCH (10:38)
[2016-12-31] MEDS: LOVENOX SUB-Q SCH (10:41)
--- NOTE | 2017-01-01 07:44 | Vascular Lab Report ---
Left Lower Extremity Venous Duplex Study: Reason for Exam: Pain of the left lower extremity. Comments on the Right: A limited duplex study was done of the proximal veins of the right lower extremity. All veins visualized are freely compressible without evidence of internal echogenicity. Flow is spontaneous and phasic throughout. No evidence of acute or chronic thrombus is seen in any of the vessels visualized. Comments on the Left: All veins visualized are freely compressible without evidence of internal echogenicity. Flow is spontaneous and phasic throughout. No evidence of acute or chronic thrombus is seen in any of the vessels visualized. Impression: No evidence of acute or chronic deep venous thrombosis in the left lower extremity.
== END 2016-12-31 16:08 | disposition home or self-care (01) | DRG 812 ==
LOC: ED 22:52 → 3A 12-29 07:43
PROVIDERS: ADMIT Internal Medicine; ATTEND Internal Medicine
PROC: 05HQ33Z Insertion of Infusion Device into Left External Jugular Vein, Percutaneous Approach (ICD-10-PCS; principal; 2016-12-29)
DX: D57.00 Hb-SS disease with crisis, unspecified (principal); M25.552 Pain in left hip; J45.909 Unspecified asthma, uncomplicated; G89.29 Other chronic pain; F17.210 Nicotine dependence, cigarettes, uncomplicated; K21.9 Gastro-esophageal reflux disease without esophagitis; E66.01 Morbid (severe) obesity due to excess calories; Z68.41 Body mass index [BMI] 40.0-44.9, adult; M87.852 Other osteonecrosis, left femur; Z86.718 Personal history of other venous thrombosis and embolism; Z79.01 Long term (current) use of anticoagulants; Z88.6 Allergy status to analgesic agent
CPT/HCPCS: 36415; 71010; 72100; 72195; 80048; 80053; 82550; 82553; 84484; 85014; 85018; 85025; 85045; 85610; 85730; 93005; 93010; 96361; 96374; 96375; 96376; J1170; J1200; J1650; J2270; J2405; J7042

== ENCOUNTER 2017-03-18 23:52 | Emergency (ER) | payer MEDICAID ==
[2017-03-19] MEDS ORDERED: D5NS 0.2% 1,000 ML IV SCH (01:00)
[2017-03-19 04:26] VITALS: BP 136/59
[2017-03-19 04:27] LABS: Basophils % (Auto) 0.8 % (0.0-1.8); Eosinophils % (Auto) 1.8 % (0.0-4.3); Hematocrit 32.9 % (30.3-42.9); Hemoglobin 11.5 gm/dl (10.1-14.3); Mean Corpuscular HGB Conc 35 % (30-34); Mean Corpuscular Hemoglobin 29 pg (28-32); Mean Corpuscular Volume 83 fl (79-97); Platelet Count 238 K/mm3 (140-440); Red Blood Count 3.96 M/mm3 (3.65-5.03); Red Cell Distribution Width 17.2 % (13.2-15.2); Reticulocyte % 1.52 % (0.78-2.58); White Blood Count 10.1 K/mm3 (4.5-11.0)
[2017-03-19] MEDS ORDERED: ZOFRAN IV ONE (04:35)
[2017-03-19] MEDS ORDERED: BENADRYL IV ONE (04:35)
[2017-03-19] MEDS ORDERED: DILAUDID IV ONE (04:36)
--- NOTE | 2017-03-19 07:21 | Emergency Department Report ---
ED General Adult HPI - General Chief complaint: Sickle Cell Crisis Stated complaint: SICKLE CELL PAIN Time Seen by Provider: 03/19/17 06:50 Source: patient, EMS Mode of arrival: Wheelchair Limitations: Physical Limitation - History of Present Illness Initial comments: Reports generalized pain that feels similar to past sickle cell crisis -: Gradual, days(s) Radiation: non-radiation Severity scale (0 -10): 3 Quality: aching Consistency: intermittent Improves with: none Worsens with: none Associated Symptoms: denies: confusion, chest pain, cough, diaphoresis, fever/ chills, headaches, loss of appetite, malaise, nausea/vomiting, rash, seizure, shortness of breath, syncope, weakness - Related Data Home Medications Medication Instructions Recorded Confirmed Last Taken ALBUTEROL Inhaler [ProAir HFA 2 puff IH QID PRN 12/29/16 12/29/16 12/28/16 Inhaler] Cyclobenzaprine HCl [Flexeril 5 MG 5 mg PO TID 12/29/16 12/29/16 12/28/16 TAB] Famotidine [Pepcid] 40 mg PO QHS 12/29/16 12/29/16 12/28/16 Folic Acid 20 mg PO QDAY 12/29/16 12/29/16 12/28/16 Previous Rx's Medication Instructions Recorded Last Taken Type Hydroxyurea [Hydrea] 500 mg PO QDAY #300 capsule 12/31/16 Unknown Rx oxyCODONE /ACETAMINOPHEN [Percocet 1 tab PO Q6H PRN #20 tablet 12/31/16 Unknown Rx 5/325 mg] Allergies Allergy/AdvReac Type Severity Reaction Status Date / Time NSAIDS (Non-Steroidal Allergy Intermediate Unknown Verified 07/14/16 18:51 Anti-Inflamma ED Review of Systems ROS: Stated complaint: SICKLE CELL PAIN Other details as noted in HPI Other: GENERAL: No weight change, fatigue, weakness, fever, chills, or night sweats SKIN: No changes in skin or hair, no itching, no rashes, no jaundice HEAD: No trauma, headache, or visual changes EYES: No blurriness, tearing, itching, acute visual loss, conjunctival discoloration, or scleral icterus EARS: No hearing loss, tinnitus, vertigo, or earache NOSE: No rhinorrhea, stuffiness, sneezing, itching, or epistaxis MOUTH: No bleeding gums, hoarseness, sore throat, or swelling CARDIAC: No new murmur, chest pain, palpitations, dyspnea on exertion, orthopnea , PND, or edema RESPIRATORY: No shortness of breath, wheeze, cough, sputum production, hemoptysis, pneumonia, asthma, bronchitis, or emphysema GI: No change in appetite, nausea, vomiting, dysphagia, change in bowel frequency, diarrhea, constipation, bleeding, hematemesis, melena, hematochezia, or abdominal pain URINARY: No frequency, urgency, polyuria, dysuria, hematuria, or incontinence MUSCULOSKELETAL: generalized pain that feels similar to past sickle cell crisis NEUROLOGIC: No loss of sensation, numbness, tingling, tremors, weakness, paralysis, seizures HEMATOLOGIC: No anemia, easy bruising, bleeding, petechiae, or purpura ENDOCRINE: No hot or cold intolerance, sweating, polyuria, polydipsia or, polyphagia no thyroid problems PSYCHIATRIC: No change in mood, no anxiety, no depression ED Past Medical Hx - Past Medical History Previous Medical History?: Yes Hx Hypertension: No Hx Heart Attack/AMI: No Hx Congestive Heart Failure: No Hx Diabetes: No Hx Deep Vein Thrombosis: Yes Hx Pulmonary Embolism: No Hx Sickle Cell Disease: Yes Hx Arthritis: Yes Hx Asthma: Yes Hx COPD: No Hx HIV: No 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, Stomach ulcers - Surgical History Hx Coronary Stent: No Additional Surgical History: [id number], hernia, nerve - Social History Smoking Status: Current Some Day Smoker - Medications Home Medications: Home Medications Medication Instructions Recorded Confirmed Last Taken Type ALBUTEROL Inhaler [ProAir HFA 2 puff IH QID PRN 12/29/16 12/29/16 12/28/16 History Inhaler] Cyclobenzaprine HCl [Flexeril 5 MG 5 mg PO TID 12/29/16 12/29/16 12/28/16 History TAB] Famotidine [Pepcid] 40 mg PO QHS 12/29/16 12/29/16 12/28/16 History Folic Acid 20 mg PO QDAY 12/29/16 12/29/16 12/28/16 History Hydroxyurea [Hydrea] 500 mg PO QDAY #300 capsule 12/31/16 Unknown Rx oxyCODONE /ACETAMINOPHEN [Percocet 1 tab PO Q6H PRN #20 tablet 12/31/16 Unknown Rx 5/325 mg] ED Physical Exam - General Limitations: Physical Limitation - Other Other exam information: GENERAL: Patient in no acute distress HEAD: Normocephalic, atraumatic EYES: PERRLA, EOM intact, no scleral icterus, no conjunctival hemorrhage, visual chapman and acuity wnl, NOSE: No tenderness, discharge, sinus tenderness MOUTH: No erythema, bleeding, exudate HEART: Regular rate and rhythm, no murmur, S1-S2 are auscultated, pulses are symmetric LUNGS: No wheezing, rales, rhonchi, bilateral breath sounds ABDOMEN: Normal bowel sounds, no tenderness, no rebound, no guarding, no masses , no CVA tenderness MUSCULOSKELETAL: Normal joint range of motion, no redness, no swelling, no tenderness NEUROLOGIC: GCS 15, Alert and Oriented x3, Cranial nerves intact, normal sensation, normal strength, normal gait, no cerebellar deficit PSYCHIATRIC: No homicidal or suicidal ideation, no anxiety, no depression, no hallucinations SKIN: Skin is warm and dry, no wounds, no rashes ED Course Vital Signs 03/19/17 03/19/17 03/19/17 00:41 04:25 06:08 Temperature 98.2 F Pulse Rate 88 72 Respiratory 20 17 18 Rate Blood Pressure 118/66 Blood Pressure 136/59 [Left] O2 Sat by Pulse 100 Oximetry ED Medical Decision Making - Lab Data Result diagrams: 03/19/17 04:00 - Medical Decision Making Patient comfortable. Updated with results. Plan discharge with outpatient follow-up. Patient agrees with plan and will return if symptoms worsen. Critical care attestation.: If time is entered above; I have spent that time in minutes in the direct care of this critically ill patient, excluding procedure time. ED Disposition Clinical Impression: Sickle cell crisis Disposition: DC-01 TO HOME OR SELFCARE Is pt being admited?: No Condition: Stable Instructions: Sickle Cell Crisis (ED) Referrals: PRIMARY CARE, [Primary Care Provider] - 3-5 Days Time of Disposition: 07:21
== END 2017-03-19 07:39 | disposition home or self-care (01) ==
LOC: ED 23:52
DX: D57.00 Hb-SS disease with crisis, unspecified (principal); M19.90 Unspecified osteoarthritis, unspecified site; J45.909 Unspecified asthma, uncomplicated; Z72.0 Tobacco use; Z88.8 Allergy status to other drugs, medicaments and biological substances
CPT/HCPCS: 36415; 85025; 85045; 96361; 96374; 96375; 99284; J1170; J1200; J2405

== ENCOUNTER 2017-03-24 07:48 | Emergency (ER) | payer MEDICAID ==
[2017-03-24] MEDS ORDERED: D5NS 0.2% 1,000 ML IV SCH (09:00)
[2017-03-24] MEDS ORDERED: NACL 0.9% 1000 ML 1,000 ML IV ONE (17:17)
[2017-03-24] MEDS ORDERED: NACL 0.9% 1000 ML 1,000 ML ONE (17:53)
[2017-03-24 18:38] LABS: Basophils % (Auto) 1.4 % (0.0-1.8); Eosinophils % (Auto) 1.2 % (0.0-4.3); Hematocrit 34.2 % (30.3-42.9); Hemoglobin 11.3 gm/dl (10.1-14.3); Mean Corpuscular HGB Conc 33 % (30-34); Mean Corpuscular Hemoglobin 28 pg (28-32); Mean Corpuscular Volume 83 fl (79-97); Platelet Count 279 K/mm3 (140-440); Red Blood Count 4.11 M/mm3 (3.65-5.03); Red Cell Distribution Width 16.3 % (13.2-15.2); White Blood Count 9.1 K/mm3 (4.5-11.0)
[2017-03-24 18:43] LABS: Bacteria,Urine 1+ /HPF (Negative); Bilirubin,Urine NEG (Negative); Blood,Urine MOD (Negative); Ketones,Urine NEG (Negative); Leukocyte Esterase,Urine MOD (Negative); Mucus,Urine FEW /HPF; Nitrite,Urine NEG (Negative); Protein,Urine <15 mg/dL mg/dL (Negative); Urobilinogen,Urine < 2.0 mg/dL (<2.0)
[2017-03-24] MEDS ORDERED: MORPHINE IV ONE (18:44)
[2017-03-24 18:56] LABS: INR 0.98 (0.87-1.13)
--- NOTE | 2017-03-24 19:34 | Emergency Department Report ---
ED Chest Pain HPI - General Chief Complaint: Sickle Cell Crisis Stated Complaint: ssd- arm and leg pain Time Seen by Provider: 03/24/17 17:17 Source: patient Mode of arrival: Ambulatory Limitations: No Limitations - History of Present Illness -: Gradual (out of perc) Pain Location: other (gen and b upper and lower extrem) Pain Radiation: none Severity: mild Severity scale (0 -10): 8 Quality: aching Consistency: intermittent Improves With: other (perc but out) Worsens With: nothing Context: recent travel (mother just and was in [place]) re: denies: nausea, vomting, diaphoresis, dyspnea, sense of impending doom Other Symptoms: denies: cough, fever, syncope, rash, acid taste in mouth, leg swelling, palpitations, burping Treatments Prior to Arrival: none - Related Data Home Medications Medication Instructions Recorded Confirmed Last Taken ALBUTEROL Inhaler [ProAir HFA 2 puff IH QID PRN 12/29/16 12/29/16 12/28/16 Inhaler] Cyclobenzaprine HCl [Flexeril 5 MG 5 mg PO TID 12/29/16 12/29/16 12/28/16 TAB] Famotidine [Pepcid] 40 mg PO QHS 12/29/16 12/29/16 12/28/16 Folic Acid 20 mg PO QDAY 12/29/16 12/29/16 12/28/16 Previous Rx's Medication Instructions Recorded Last Taken Type Hydroxyurea [Hydrea] 500 mg PO QDAY #300 capsule 12/31/16 Unknown Rx oxyCODONE /ACETAMINOPHEN [Percocet 1 tab PO Q6H PRN #20 tablet 12/31/16 Unknown Rx 5/325 mg] HYDROcodone/APAP 7.5-325 [Hemet 1 each PO Q6HR PRN #10 tablet 03/24/17 Unknown Rx 7.5-325 mg TAB] Allergies Allergy/AdvReac Type Severity Reaction Status Date / Time NSAIDS (Non-Steroidal Allergy Intermediate Unknown Verified 03/24/17 08:04 Anti-Inflamma Heart Score - HEART Score History: Slightly suspicious EKG: Normal Age: < 45 Risk factors: No known risk factors Troponin: < normal limit HEART Score: 0 - Critical Actions Critical Actions: 0-3 pts:0.9-1.7%risk of adverse cardiac event.Candidate for discharge ED Review of Systems ROS: Stated complaint: SICKLE CELL/CHEST PAIN Other details as noted in HPI Comment: All other systems reviewed and negative Constitutional: no symptoms reported, see HPI. denies: chills Eyes: as per HPI ENT: as per HPI. denies: ear pain, throat pain Respiratory: no symptoms reported, see HPI. denies: cough, orthopnea, shortness of breath, SOB with exertion, SOB at rest, stridor, wheezing Cardiovascular: as per HPI, chest pain. denies: palpitations, dyspnea on exertion, orthopnea, edema, syncope, paroxysmal nocturnal dyspnea Endocrine: no symptoms reported Gastrointestinal: as per HPI Genitourinary: as per HPI Musculoskeletal: as per HPI, other (pain of ssd). denies: joint swelling, arthralgia Skin: as per HPI Neurological: as per HPI. denies: headache, weakness Psychiatric: as per HPI Hematological/Lymphatic: as per HPI ED Past Medical Hx - Past Medical History Previous Medical History?: Yes Hx Hypertension: No Hx CVA: No Hx Heart Attack/AMI: No Hx Congestive Heart Failure: No Hx Diabetes: No Hx Deep Vein Thrombosis: Yes Hx Pulmonary Embolism: No Hx GERD: No Hx Liver Disease: No Hx Renal Disease: No Hx of Cancer: No Hx Sickle Cell Disease: Yes Hx Arthritis: Yes Hx Headaches / Migraines: No Hx Seizures: No Hx Kidney Stones: No Hx Psychiatric Treatment: No Hx Asthma: Yes Hx COPD: No Hx Tuberculosis: No Hx Dementia: No Hx HIV: No 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, Stomach ulcers - Surgical History Hx Coronary Stent: No Hx Open Heart Surgery: No Hx Pacemaker: No Hx Internal Defibrillator: No Hx Cholecystectomy: No Hx Appendectomy: No Hx Breast Surgery: No Additional Surgical History: c-secx7, hernia, nerve - Family History Family history: no significant - Social History Smoking Status: Current Every Day Smoker Substance Use Type: None - Medications Home Medications: Home Medications Medication Instructions Recorded Confirmed Last Taken Type ALBUTEROL Inhaler [ProAir HFA 2 puff IH QID PRN 12/29/16 12/29/16 12/28/16 History Inhaler] Cyclobenzaprine HCl [Flexeril 5 MG 5 mg PO TID 12/29/16 12/29/16 12/28/16 History TAB] Famotidine [Pepcid] 40 mg PO QHS 12/29/16 12/29/16 12/28/16 History Folic Acid 20 mg PO QDAY 12/29/16 12/29/16 12/28/16 History Hydroxyurea [Hydrea] 500 mg PO QDAY #300 capsule 12/31/16 Unknown Rx oxyCODONE /ACETAMINOPHEN [Percocet 1 tab PO Q6H PRN #20 tablet 12/31/16 Unknown Rx 5/325 mg] HYDROcodone/APAP 7.5-325 [Hemet 1 each PO Q6HR PRN #10 tablet 03/24/17 Unknown Rx 7.5-325 mg TAB] ED Physical Exam - General Limitations: No Limitations General appearance: alert, in no apparent distress - Head Head exam: Present: atraumatic - Eye Eye exam: Present: normal appearance - ENT ENT exam: Present: normal exam, mucous membranes moist - Neck Neck exam: Present: normal inspection - Respiratory Respiratory exam: Present: normal lung sounds bilaterally. Absent: respiratory distress, wheezes, rales, rhonchi, stridor - Cardiovascular Cardiovascular Exam: Present: regular rate, normal rhythm - GI/Abdominal GI/Abdominal exam: Present: soft. Absent: distended, tenderness, guarding, rebound, rigid, normal bowel sounds, diminished bowel sounds - Rectal Rectal exam: Present: deferred - Extremities Exam Extremities exam: Present: normal inspection, full ROM, normal capillary refill , other (full rom fine motor intact). Absent: tenderness, pedal edema, joint swelling, calf tenderness - Back Exam Back exam: Present: normal inspection, full ROM. Absent: tenderness, CVA tenderness (L) - Neurological Exam Neurological exam: Present: alert, altered, oriented X3, CN II-XII intact, normal gait (n for pt a/c l hip pain), reflexes normal. Absent: abnormal gait, motor sensory deficit - Psychiatric Psychiatric exam: Present: normal affect, normal mood. Absent: depressed, agitated, anxious, flat affect, manic, homicidal ideation - Skin Skin exam: Present: warm, dry, intact, normal color. Absent: rash ED Course Vital Signs 03/24/17 03/24/17 03/24/17 08:05 17:21 17:23 Temperature 98.3 F 98.2 F Pulse Rate 80 91 H Respiratory 18 16 16 Rate Blood Pressure 113/69 Blood Pressure 132/71 [Left] O2 Sat by Pulse 99 100 100 Oximetry 06/17/17 19:55 Temperature Pulse Rate Respiratory 18 Rate Blood Pressure Blood Pressure [Left] O2 Sat by Pulse Oximetry - Reevaluation(s) Reevaluation #1: 03/24/17 to er w co upper and lower b extremity pain co cp to rn but denied to me mom recently and pt out of town out of her pain meds ssd avascular nec w surg planned here on the has appnt w [facility] but wants local referral also has been referred by pcp to chronic pain md vss no cp no sob nad watching movie on her phone long discussion about her surg and how she could get directed blood from her daughter [facility] info given Reevaluation #2: 03/24/17 20:38 vss nad no cp has been medicated for pain Dr. Gay aware of care labs noted. dc home w follow up EZEQUIEL score - Ezequiel Score Age > 65: (0) No Aspirin use within the Past 7 Days: (0) No 3 or more CAD Risk Factors: (0) No 2 or more Angina events in past 24 hrs: (0) No Known CAD with more than 50% Stenosis: (0) No Elevated Cardiac Markers: (0) No ST Deviation Greater than 0.5mm: (0) No EZEQUIEL Score: 0 ED Medical Decision Making - Lab Data Result diagrams: 03/24/17 17:35 03/24/17 17:19 - EKG Data EKG shows normal: sinus rhythm Rate: normal - EKG Data When compared to previous EKG there are: no significant change Interpretation: no acute changes - Medical Decision Making a/c ssd out of pain meds retic wnl 12 lead nap preop for avascular nec labs noted medicated w relief dc home w dc poc Critical care attestation.: If time is entered above; I have spent that time in minutes in the direct care of this critically ill patient, excluding procedure time. ED Disposition Clinical Impression: Sickle cell disease, Pain, Chronic pain, Chest wall pain, Chronic left hip pain , Sickle cell disease, type SC, Avascular necrosis Disposition: DC-01 TO HOME OR SELFCARE Is pt being admited?: No Does the pt Need Aspirin: No Condition: Stable Instructions: Sickle Cell Crisis (ED) Additional Instructions: follow up with your pcp, pain management MD, [facility], and heme onc [place] for directed donor as we discussed home meds per MD in prep for surgery diet per routine hydrate well Prescriptions: HYDROcodone/APAP 7.5-325 [Hemet 7.5-325 mg TAB] 1 each PO Q6HR PRN #10 tablet PRN Reason: Pain Referrals: PRIMARY CARE, [Primary Care Provider] - 3-5 Days IFTIKHAR VERA MD [Staff Physician] - 3-5 Days Time of Disposition: 20:29
[2017-03-24] MEDS ORDERED: DILAUDID IV ONE ×2 (19:45→19:48)
[2017-03-24 20:03] LABS: Alanine Aminotransferase 8 units/L (7-56); Albumin 3.9 g/dL (3.9-5); Albumin/Globulin Ratio 1.3 %; Alkaline Phosphatase 81 units/L (35-129); Anion Gap 19 mmol/L; BUN/Creatinine Ratio 18.33; Blood Urea Nitrogen 11 mg/dL (7-17); Calcium 9.5 mg/dL (8.4-10.2); Carbon Dioxide 21 mmol/L (22-30); Chloride 101.7 mmol/L (98-107); Glucose 118 mg/dL (65-100); Potassium 4.1 mmol/L (3.6-5.0); Sodium 138 mmol/L (137-145); Total Protein 6.8 g/dL (6.3-8.2)
[2017-03-24 22:19] VITALS: BP 125/53
== END 2017-03-24 21:00 | disposition home or self-care (01) ==
LOC: ED 07:48
DX: D57.00 Hb-SS disease with crisis, unspecified (principal); G89.29 Other chronic pain; R07.89 Other chest pain; M25.552 Pain in left hip; M87.059 Idiopathic aseptic necrosis of unspecified femur; I82.409 Acute embolism and thrombosis of unspecified deep veins of unspecified lower extremity; M19.90 Unspecified osteoarthritis, unspecified site; J45.909 Unspecified asthma, uncomplicated; F17.200 Nicotine dependence, unspecified, uncomplicated; Z88.6 Allergy status to analgesic agent
CPT/HCPCS: 36415; 80053; 81001; 84702; 85025; 85045; 85610; 93005; 93010; 96361; 96374; 96375; 99284; J1170; J2270; J7030

== ENCOUNTER 2017-04-13 13:26 | Outpatient (CLI) | payer OTHER ==
--- NOTE | 2017-04-14 12:11 | Vascular Lab Report ---
LOWER EXTREMITY VENOUS DUPLEX: REASON FOR EXAM: Edema of the lower extremities. COMMENTS ON THE RIGHT: All veins visualized are freely compressible without evidence of internal echogenicity. Flow is spontaneous and phasic throughout. COMMENTS ON THE LEFT: All veins visualized are freely compressible without evidence of internal echogenicity. Flow is spontaneous and phasic throughout. IMPRESSION: No evidence of acute or chronic deep venous thrombosis in either lower extremity.
== END 2017-04-13 13:27 | disposition home or self-care (01) ==
LOC: VAS 13:26
PROVIDERS: ATTEND Internal Medicine Hematology & Oncology
DX: R60.0 Localized edema (principal); D64.9 Anemia, unspecified; J45.909 Unspecified asthma, uncomplicated; E66.01 Morbid (severe) obesity due to excess calories; J18.9 Pneumonia, unspecified organism; F32.9 Major depressive disorder, single episode, unspecified; F17.200 Nicotine dependence, unspecified, uncomplicated
CPT/HCPCS: 93970

== ENCOUNTER 2017-04-18 06:43 | Inpatient (IN) | payer MEDICAID, OTHER ==
--- NOTE | 2017-04-16 11:13 | Anesthesia Consultation ---
Anesthesia Consult and Med Hx Date of service: 04/16/17 - Airway Anesthetic Teeth Evaluation: Good ROM Head & Neck: Adequate Mental/Hyoid Distance: Adequate Mallampati Class: Class I Intubation Access Assessment: Good - Pulmonary Exam CTA: Yes - Cardiac Exam Cardiac Exam: RRR - Pre-Operative Health Status ASA Pre-Surgery Classification: ASA3 Proposed Anesthetic Plan: Epidural, Spinal - Pulmonary Hx Smoking: Yes (3 PER DAY- TRYING TO STOP) Hx Asthma: Yes (INHALER PRN) COPD: No Hx Pneumonia: Yes Hx Sleep Apnea: No (DAVID PRE SCREEN LOW RISK) - Cardiovascular System Hx Hypertension: No Hx Heart Attack/AMI: No Hx Angina: Yes Hx Pacemaker: No Hx Internal Defibrillator: No - Central Nervous System Hx Seizures: No Hx Back Pain: Yes Hx Psychiatric Problems: Yes - Gastrointestinal Hx Ulcer: Yes - Endocrine Hx Renal Disease: No Hx End Stage Renal Disease: No Hx Liver Disease: No - Hematic Hx Anemia: Yes (SICKLE CELL- MULTIPLE HOSPITALIZATIONS) Hx Sickle Cell Disease: Yes - Other Systems Hx Substance Use: Yes (MARIJUANA MONTHLY) Hx Cancer: No
[2017-04-16 11:20] LABS: Basophils % (Auto) 0.8 % (0.0-1.8); Eosinophils % (Auto) 1.8 % (0.0-4.3); Hematocrit 32.1 % (30.3-42.9); Hemoglobin 10.5 gm/dl (10.1-14.3); Mean Corpuscular HGB Conc 33 % (30-34); Mean Corpuscular Hemoglobin 28 pg (28-32); Mean Corpuscular Volume 85 fl (79-97); Platelet Count 268 K/mm3 (140-440); Red Blood Count 3.79 M/mm3 (3.65-5.03); White Blood Count 7.8 K/mm3 (4.5-11.0)
[2017-04-16 11:37] LABS: Alanine Aminotransferase 7 units/L (7-56); Albumin 3.6 g/dL (3.9-5); Albumin/Globulin Ratio 1.1 %; Alkaline Phosphatase 67 units/L (35-129); Anion Gap 16 mmol/L; BUN/Creatinine Ratio 16.66; Bilirubin,Total < 0.20 mg/dL (0.1-1.2); Blood Urea Nitrogen 10 mg/dL (7-17); Calcium 8.8 mg/dL (8.4-10.2); Carbon Dioxide 23 mmol/L (22-30); Chloride 104.7 mmol/L (98-107); Glucose 99 mg/dL (65-100); Sodium 140 mmol/L (137-145); Total Protein 6.9 g/dL (6.3-8.2)
[~2017-04-18 06:43] MED LIST: ANCEF/STERILE WATER 2 GM/20 ML 2 GM/20 ML SYRINGE IV NR; NACL 0.9% 500 ML 500 ML IV SCH; PEPCID IV NR; VERSED IV NR
[2017-04-18] MEDS ORDERED: ZOFRAN IV PRN ×2 (06:57→14:36)
[2017-04-18] MEDS ORDERED: DIPRIVAN 10 MG/ML IV ONE ×2 (07:15→09:32)
[2017-04-18] MEDS ORDERED: ZEMURON IV ONE ×2 (07:18→09:59)
[2017-04-18] MEDS ORDERED: SUBLIMAZE ONE (07:18)
[2017-04-18] MEDS ORDERED: XYLOCAINE MPF 2% ONE (07:18)
--- NOTE | 2017-04-18 07:28 | History and Physical Report ---
History of Present Illness Date of examination: 04/18/17 Date of admission: 04/18/17 06:43 Chief complaint: Left hip pain, difficulty walking. Duration several years progressively worsening. Seen in December of this year on consultation, severe avascular necrosis left hip was confirmed. Recommended total hip arthroplasty being admitted for same. Past History Past Medical History: anemia (copd, Sickle cell disease) Medications and Allergies Allergies Allergy/AdvReac Type Severity Reaction Status Date / Time NSAIDS (Non-Steroidal Allergy Intermediate Hives Verified 04/09/17 12:31 Anti-Inflamma Home Medications Medication Instructions Recorded Confirmed Last Taken Type ALBUTEROL Inhaler [ProAir HFA 2 puff IH QID PRN 12/29/16 04/09/17 12/28/16 History Inhaler] Hydroxyurea [Hydrea] 500 mg PO QDAY #300 capsule 12/31/16 04/09/17 Unknown Rx Iron 18 mg PO QDAY 04/09/17 04/09/17 Unknown History Active Meds: Active Medications Famotidine (Pepcid) 20 mg IV PREOP NR Stop: 04/18/17 23:59 Hydromorphone HCl (Dilaudid) 0.5 mg IV Q10MIN PRN PRN Reason: Pain , Severe (7-10) Stop: 04/21/17 06:58 Sodium Chloride (Nacl 0.9% 1000 Ml) 1,000 mls @ 75 mls/hr IV DIRECT LETTY Cefazolin Sodium (Ancef/Sterile Water 2 Gm/20 Ml) 2 gm in 20 mls @ 80 mls/hr IV PREOP NR PRN Reason: Protocol Stop: 04/18/17 23:02 Midazolam HCl (Versed) 2 mg IV PREOP NR Stop: 04/18/17 23:59 Review of Systems All systems: negative Exam - Constitutional Vitals: Temp Pulse Resp BP Pulse Ox 97.9 F 70 20 110/70 04/16/17 11:00 04/16/17 11:00 04/16/17 11:00 04/16/17 11:00 General appearance: Present: no acute distress, well-nourished - EENT Eyes: Present: PERRL ENT: hearing intact, clear oral mucosa - Neck Neck: Present: supple, normal ROM - Respiratory Respiratory effort: normal Respiratory: bilateral: CTA - Cardiovascular Heart Sounds: Present: S1 & S2. Absent: rub, click - Extremities Extremities: pulses symmetrical, No edema, abnormal (Left hip with severe painful limitation of movement, no leg length abnormalities. Pain with flexion and adduction internal rotation.) Peripheral Pulses: within normal limits - Abdominal General gastrointestinal: Present: soft, non-tender, non-distended, normal bowel sounds Female genitourinary: Present: normal - Integumentary Integumentary: Present: clear, warm, dry - Musculoskeletal Musculoskeletal: gait normal, strength equal bilaterally - Psychiatric Psychiatric: appropriate mood/affect, intact judgment & insight - Neurologic Neurologic: CNII-XII intact, moves all extremities Results - Labs CBC & Chem 7: 04/16/17 11:00 04/16/17 11:00 Assessment and Plan - Patient Problems (1) Avascular necrosis Current Visit: No Status: Chronic Plan to address problem: Left total hip arthroplasty. Procedure, complications and outcome discussed with. Recovery rehabilitation course also discussed and all questions are answered. Preoperative seen with primary care and carton stapler prior to surgery for preop medical evaluation and stabilization.
[2017-04-18] MEDS ORDERED: NEOSPORIN GU IR ONE ×3 (07:31→09:48)
[2017-04-18] MEDS ORDERED: NACL 0.9% 1000 ML 1,000 ML ONE ×2 (07:37→09:44)
--- NOTE | 2017-04-18 07:37 | Anesthesia Day of Surgery ---
Anesthesia Day of Surgery - Day of Surgery Patient Examined: Yes Patient H&P Reviewed: Yes Patient is NPO: Yes
[2017-04-18] MEDS: NACL 0.9% 1000 ML 1,000 ML IV SCH (08:22)
[2017-04-18] MEDS ORDERED: ACD-A 500 ML IV ONE (08:53)
[2017-04-18] MEDS ORDERED: NEOSTIGMINE ONE (09:08)
[2017-04-18] MEDS ORDERED: ROBINUL ONE ×2 (09:08→10:50)
[2017-04-18] MEDS ORDERED: ZOFRAN ONE (09:08)
[2017-04-18] MEDS ORDERED: NACL 0.9% IR ONE ×2 (09:15→09:48)
[2017-04-18] MEDS ORDERED: DILAUDID ONE (09:26)
[2017-04-18] MEDS ORDERED: BREVIBLOC IV ONE (09:38)
[2017-04-18] MEDS ORDERED: APRESOLINE ONE (09:46)
[2017-04-18] MEDS ORDERED: WATER FOR IRRIG STERILE IR ONE (10:43)
[2017-04-18] MEDS ORDERED: PROAIR IH PRN (10:50)
--- NOTE | 2017-04-18 10:51 | Procedure Note ---
Date of procedure: 04/18/17 Pre-op diagnosis: AVn left hip Post-op diagnosis: same Procedure: left total hip arthroplasty, Hany, non cemented Anesthesia: GETA Surgeon: SLICK CANCINO Estimated blood loss: other (400 ml/ 200 ml packed cell to pt with cell saver) Pathology: list (fem head) Specimen disposition: to lab Condition: stable Disposition: PACU
[2017-04-18] MEDS ORDERED: PROVENTIL IH PRN (11:20)
[2017-04-18] MEDS: DILAUDID IV PRN ×6 (11:32→21:03)
--- NOTE | 2017-04-18 11:50 | XRay Report ---
LEFT HIP, ONE VIEW History: Postoperative film. Findings: Recent left hip arthroplasty changes are noted. The hardware appears well applied. No acute fracture or malalignment is appreciated. Impression: Stable appearance of the left hip prosthesis.
[2017-04-18] MEDS: VERSED IV PRN ×2 (13:00→13:25)
--- NOTE | 2017-04-18 14:05 | Post Anesthesia Evaluation ---
- Post Anesthesia Evaluation Patient Participated: Yes Airway Patent: Yes Stable Respiratory Function: Yes Temp > 96.8F: Yes Pain Manageable: Yes Adequeate Hydration: Yes Anesthesia Complications: No Block Receding Appropriately: Not Applicable
[2017-04-18] MEDS ORDERED: MILK OF MAGNESIA PO PRN (14:36)
[2017-04-18] MEDS ORDERED: AMBIEN PO PRN (14:36)
[2017-04-18] MEDS ORDERED: MORPHINE IV PRN ×2 (14:36)
[2017-04-18] MEDS ORDERED: SODIUM CHLORIDE FLUSH SYRINGE 10 ML IV PRN (14:36)
[2017-04-18] MEDS ORDERED: PHENERGAN PR PRN (14:36)
--- NOTE | 2017-04-18 15:02 | Admit Criteria Form ---
Admission Criteria Documentation: AMBULATORY SURGERY EXCEPTION CRITERIA Ambulatory Surgery Exception Criteria ( Place 'X' for any and all applicable criteria): Surgery or procedure performed on ambulatory basis may require inpatient stay for[A] ANY ONE of the following(1)(2)(3)(4)(5)(6)(7)(8)(9): [X] I. A preoperative situation, condition, or finding that warrants inpatient stay as indicated by ANY ONE of the following: [] a) Inpatient care needed because of severity of a disease or condition rather than the surgery (eg, severe cardiac or respiratory disease, severe infection) (15) (16 ) (17) (18) [] b) Emergent procedure (eg, angioplasty for acute ischemia)(19) [] c) Complex surgical approach or situation as indicated by ANY ONE of the following(3): [] i) Open approach needed instead of usual endoscopic, transcatheter, or other less invasive procedure [] ii) Difficult approach because of previous operation [] iii) Airway monitoring required after open neck procedures(20)(21) [] iv) Large mass requiring unusually extensive dissection [] v) Additional complicating feature requiring inpatient care (eg, drain management)(22(23): [X] d) Major surgery in a pt with high anesthetic risk as indicated by ANY ONE of the following (2)(3)(5)(7)(8): [X] i) ASA risk class III or higher (severe systemic disease impairing function) [D] [] ii) Advanced age (eg, older than 85 years)(14)(24) [] iii) Symptomatic heart failure(25) [] iv) Symptomatic asthma or COPD(8)(21) [] v) Morbid obesity with hemodynamic or respiratory problems(20)( 21)(26)(27) [] vi) Obstructive sleep apnea(20)(21) [] vii) Former premature infants who are younger than 60 weeks [] viii) High risk for severe postoperative abnormalities (eg, severe postoperative hypocalcemia after parathyroidectomy for severe hyperparathyroidism)(27)( 28) [] ix) Unstable angina(25) [] e) Drug-related risk requiring inpatient stay as indicated by ANY ONE of the following(5)(10)(14)(32)(33) [] i) Procedure requires discontinuing drugs or other therapy (eg , antiarrhythmic medication, antiseizure medication), which necessitates inpatient observation or treatment.(18)(31) [] ii) Major surgery and high risk drug use as indicated by ANY ONE of the following: [] 1) Active abuse of cocaine or similar drug [] 2) Monoamine oxidase inhibitor use [] 3) Other drug identified as posing risk [] f) Inadequate outpatient care situation as indicated by ANY ONE of the following(5)(10)(14)(32)(33) [] i) Patient lives remote from medical facility and procedure has urgent complication potential, and temporary nearby residence cannot be arranged [] ii) Patient will have postprocedure incapacitation and inadequate assistance at home, or alternative level of care cannot be arranged. [] iii) Patient will have long general anesthesia or procedure side effect resolution time, and competent person to stay with patient on first postoperative night at home or alternative level of care cannot be arranged. []iv) Other inadequate outpatient situation that cannot be handled by other means [] II. A perioperative event, condition, or finding that warrants inpatient stay as indicated by ANY ONE of the following (1)(2)(3): [] a) Inadequate physiologic recovery: cardiovascular, respiratory, or hemodynamic status not normal or near preoperative baseline(18) [] b) Hemodynamic instability [] c) Patient not alert with near normal or baseline mental status [] d) Temperature not normal or as expected and not appropriate for outpatient treatment of condition [] e) Ambulatory or appropriate activity level status not yet achieved post procedure [E](34)(35)(36) [] f) Operative site not appropriate (eg, unexpected or excessive drainage or bleeding) [] g) Postoperative effects not resolved or adequately managed (eg, significant pain or vomiting not appropriate for outpatient or next level of care)(10)(12) [] h) Complicating features requiring inpatient care as indicated by ANY ONE of the following(37): [] i) Severe complications of procedure (eg, bowel injury, airway compromise, vascular injury,severe hemorrhage) [] ii) Extensive (eg, dissection far beyond usual scope of procedure ) or prolonged (eg, 120 minutes beyond usual) surgery needed requiring inpatient postoperative care [] iii) Conversion to an open or complex procedure that requires inpatient care (eg, open vs laparoscopic cholecystectomy, abdominal vs vaginal hysterectomy)(38) [] iv) Comorbid condition or test result identified during or post procedure that requires inpatient care (7) [] v) Malignant hyperthermia(30) [] vi) Other complicating feature requiring inpatient care(22)(23) Inpatient stay may be needed until ALL of the following are present (1)(2)(3)(4) (5)(6)(10)(14)(33)(40): []a) Physiologic recovery: cardiovascular, respiratory, and hemodynamic status normal or near preoperative baseline []b) Hemodynamic stability []c) Patient alert, with near normal or baseline mental status []d) Temperature appropriate: patient afebrile or temperature appropriate for outpt treatment of condition []e) Activity level appropriate: ambulatory or appropriate activity level post procedure []f) Operative site appropriate as indicated by ALL of the following: []i) Site dry or with expected drainage []ii) Any blood noted is as expected for procedure. []g) Postoperative effects resolved or managed as indicated by ALL of the following: []i) Pain management appropriate for outpatient (or next level of) care(10) []ii) Minimal nausea and vomiting: if present, successfully treated with oral medication(12) []iii) Headache, dizziness, or drowsiness (if present) are mild. []h) Voiding status acceptable as indicated by ANY ONE of the following: []i) Voiding spontaneously []ii) No voiding but instructions given for follow-up in 6 to 8 hours []iii) Urinary catheter in place, and instructions given for follow-up []i) Complicating features requiring inpatient care manageable at a lower level of care(37) []j) Comorbid conditions manageable at a lower level of care(37) The original [employer] content created by [employer] has been revised. The portions of the content which have been revised are identified through the use of italic text or in bold, and [facility] [employer] has neither reviewed nor approved the modified material. All other unmodified content is copyright [employer]. Please see references footnoted in the original [employer] edition 2016 Admission Criteria Met: Yes
[2017-04-18] MEDS: PERCOCET 5/325 PO PRN (15:23)
[2017-04-18] MEDS: ANCEF/NS 1 GM/50 ML 1 GM/50 ML BAG IV SCH (16:40)
[2017-04-18] MEDS: COLACE PO SCH (21:03)
--- NOTE | 2017-04-18 21:38 | Consultation ---
History of Present Illness - Reason for Consult Consult date: 04/18/17 medical management Requesting physician: SLICK CANCINO - History of Present Illness 36-year-old -Ch[place]an female with history of sickle cell anemia and asthma chronic pain had a left hip replacement today. Was asked to manage medically. Patient has chronic pain. Also asthma which is not active at this point. Complains of pain all over and left hip Joint. Postop patient doing well. Past History Past Medical History: anemia (copd, Sickle cell disease), other (asthma, chronic pain) Past Surgical History: total hip replacement (left total hip replacement today) Social history: lives with family, smoking Medications and Allergies Allergies Allergy/AdvReac Type Severity Reaction Status Date / Time NSAIDS (Non-Steroidal Allergy Intermediate Hives Verified 04/09/17 12:31 Anti-Inflamma Home Medications Medication Instructions Recorded Confirmed Last Taken Type ALBUTEROL Inhaler [ProAir HFA 2 puff IH QID PRN 12/29/16 04/18/17 04/04/17 History Inhaler] Hydroxyurea [Hydrea] 500 mg PO QDAY #300 capsule 12/31/16 04/09/17 04/17/17 Rx Iron 18 mg PO QDAY 04/09/17 04/09/17 04/17/17 History Active Meds: Active Medications Acetaminophen (Tylenol) 650 mg PO Q4H PRN PRN Reason: Pain MILD(1-3)/Fever >100.5/KEMP Albuterol (Proventil) 2.5 mg IH QIDRT PRN PRN Reason: Shortness Of Breath Docusate Sodium (Colace) 100 mg PO BID [facility] Last Admin: 04/18/17 21:03 Dose: 100 mg Enoxaparin Sodium (Lovenox) 40 mg SUB-Q QDAY LETTY Ferrous Sulfate (Feosol) 325 mg PO DAILY LETTY Hydromorphone HCl (Dilaudid) 1 mg IV Q3H PRN PRN Reason: Pain , Severe (7-10) Last Admin: 04/18/17 21:03 Dose: 1 mg Hydroxyurea (Hydrea) 500 mg PO QDAY [facility] Sodium Chloride (Nacl 0.9% 1000 Ml) 1,000 mls @ 75 mls/hr IV DIRECT LETTY Last Admin: 04/18/17 08:22 Dose: 75 mls/hr Cefazolin Sodium (Ancef/Ns 1 Gm/50 Ml) 1 gm in 50 mls @ 100 mls/hr IV Q8H [facility] Stop: 04/19/17 00:29 Last Admin: 04/18/17 16:40 Dose: 100 mls/hr Magnesium Hydroxide (Milk Of Magnesia) 30 ml PO Q4H PRN PRN Reason: Constipation Midazolam HCl (Versed) 1 mg IV ONCE PRN PRN Reason: Agitation Last Admin: 04/18/17 13:25 Dose: 1 mg Morphine Sulfate (Morphine) 2 mg IV Q4H PRN PRN Reason: Pain, Moderate (4-6) Last Admin: 04/18/17 15:16 Dose: 2 mg Morphine Sulfate (Morphine) 4 mg IV Q4H PRN PRN Reason: Pain , Severe (7-10) Last Admin: 04/18/17 19:09 Dose: 4 mg Multivitamins (Theragran Tab) 1 each PO QDAY [facility] Ondansetron HCl (Zofran) 4 mg IV Q8H PRN PRN Reason: Nausea And Vomiting Last Admin: 04/18/17 16:42 Dose: 4 mg Oxycodone HCl (Oxycontin) 10 mg PO Q12HR [facility] Oxycodone/Acetaminophen (Percocet 5/325) 1 tab PO Q6H PRN PRN Reason: Pain, Moderate (4-6) Last Admin: 04/18/17 15:23 Dose: 1 tab Promethazine HCl (Phenergan) 25 mg ID Q6H PRN PRN Reason: Nausea And Vomiting Sodium Chloride (Sodium Chloride Flush Syringe 10 Ml) 10 ml IV PRN PRN PRN Reason: LINE FLUSH Zolpidem Tartrate (Ambien) 5 mg PO QHS PRN PRN Reason: Sleep Review of Systems All systems: negative Exam - Physical Exam Narrative exam: Lying in bed in pain. - Constitutional Vitals: Temp Pulse Resp BP Pulse Ox 98.5 F 102 H 20 125/69 100 04/18/17 13:54 04/18/17 13:54 04/18/17 13:54 04/18/17 13:54 04/18/17 13:54 General appearance: Present: no acute distress, well-nourished - EENT Eyes: Present: PERRL ENT: hearing intact, clear oral mucosa - Neck Neck: Present: supple, normal ROM - Respiratory Respiratory effort: normal Respiratory: bilateral: CTA - Cardiovascular Heart rate: 76 Rhythm: regular Heart Sounds: Present: S1 & S2. Absent: rub, click - Extremities Extremities: no ischemia, pulses intact, pulses symmetrical, No edema Peripheral Pulses: within normal limits - Abdominal General gastrointestinal: Present: soft, non-tender, non-distended, normal bowel sounds Female genitourinary: Present: normal - Rectal Rectal Exam: deferred - Integumentary Integumentary: Present: clear, warm, dry - Musculoskeletal Musculoskeletal: gait normal, strength equal bilaterally - Psychiatric Psychiatric: appropriate mood/affect, intact judgment & insight - Neurologic Neurologic: CNII-XII intact, moves all extremities - Allied Health Allied health notes reviewed: nursing Results - Labs CBC & Chem 7: 04/16/17 11:00 04/16/17 11:00 Labs: Abnormal lab results 04/18/17 Range/Units 07:50 Crossmatch See Detail Assessment and Plan - Patient Problems (1) Sickle cell disease, type SC Current Visit: No Status: Chronic Qualifiers: Sickle-cell associated disorders: without crisis Qualified Code(s): D57.20 - Sickle-cell/Hb-C disease without crisis Plan to address problem: Not in crisis (2) Avascular necrosis Current Visit: No Status: Acute Plan to address problem: Had L ANNABELLE (3) Asthma Current Visit: Yes Status: Inactive Qualifiers: Asthma severity: A Asthma complication type: uncomplicated Plan to address problem: Neb treatments PRN (4) Pain management Current Visit: Yes Status: Acute (5) Chronic left hip pain Current Visit: No Status: Acute Plan to address problem: Secondary to left total hip arthroplasty. Patient started on IV Dilaudid 1 mg every 2 hours when necessary. Patient wants a ATTRACTION ATTENDANT pump but it is not necessary at this point. (6) DVT prophylaxis Current Visit: Yes Status: Acute Plan to address problem: SCDs only
--- NOTE | 2017-04-18 21:50 | Operative Report ---
Operative Report Operative Report: Preoperative diagnosis Avascular necrosis left hip Postop diagnosis. Avascular necrosis left hip Operative procedure. Left total hip arthroplasty, [place], noncemented Surgeon Dr. DEBBIE Presley. [place] Anesthesia General Blood loss. Approx 400 cc, Date of surgery 04/18/17 Procedure Patient was taken to surgery suite, general anesthesia administered with LMA intubation and was positioned the lateral position. Left hip, thigh are prepped in the standard fashion using ChloraPrep and satisfactory prepped in the standard fashion. The correct patient, procedure, sites confirmed. Incision was made starting at a point at the greater trochanter, extending to the posterior superior iliac spine and deepened through subcutaneous, the fascia and gluteus was split and retracted. Short external rotators were detached from the posterior hip, capsulotomy was done and the hip joint entered. The head appeared with deformity, collapse of the articular surface. Femoral head was resected 1 cm proximal to the lesser trochanter, and femoral medullary canal reamed and broached to a press-fit size 6 which appeared to be healing satisfactory fit. The acetabulum was then reamed with increasing size reamers, with size 54 reaming appears sub chondral and congruous. Following irrigation and removed any debris and acetabular shell size 54 was press fitted at approximately 45 abduction, 20 anteversion. Through the superior quadrant drill holes were made and 2 cancellous screws size 30 and 25 mm length each were applied thereby stabilizing the shell. The shell was then coupled on the acetabular liner with 10 posterior superior offset and a 36 mm inside diameter and is locked in place. Following irrigation a size 6 femoral component was press fitted. Trial reduction was carried out using 0 neck length femoral head, the hip appeared stable both anterior and posterior with no leg length inequality. Trial head was then exchanged for a ceramic head 36 mm diameter and 0 neck length. Hip was reduced. Irrigated with pressure irrigation system. Hemostasis appeared satisfactory. Wound was closed in layers using 0 Vicryl, 2- 0 Vicryl, scott. Sterile dressings are applied and with abduction wedge in place she was transferred to her bed. Tolerated procedure well. Total blood loss approximately 400 cc, 200 cc of packed cells were processed with the Cell Saver. A decompression procedure, instrument and sponge counts were accurate. The collected RBCs are discarded due to the patient's severe sickle cell disease.
[2017-04-18] MEDS: BENADRYL PO PRN (23:01)
[2017-04-19] MEDS: ANCEF/NS 1 GM/50 ML 1 GM/50 ML BAG IV SCH (00:09)
[2017-04-19] MEDS: DILAUDID IV PRN ×7 (01:25→20:43)
[2017-04-19] MEDS: NACL 0.9% 1000 ML 1,000 ML IV SCH (03:34)
[2017-04-19] MEDS: OxyCONTIN PO SCH ×3 (06:06→21:58)
[2017-04-19 06:40] LABS: Anion Gap 15 mmol/L; BUN/Creatinine Ratio 13.33; Blood Urea Nitrogen 8 mg/dL (7-17); Calcium 7.9 mg/dL (8.4-10.2); Carbon Dioxide 23 mmol/L (22-30); Chloride 102.7 mmol/L (98-107); Glucose 109 mg/dL (65-100); Potassium 3.6 mmol/L (3.6-5.0); Sodium 137 mmol/L (137-145)
--- NOTE | 2017-04-19 08:01 | Progress Note ---
Assessment and Plan Assessment and plan: 36-year-old -Sammarinese female with history of sickle cell anemia and asthma chronic pain had a left hip replacement Sickle cell disease, type SC Not in crisis, hg stable post op Avascular necrosis sp L ANNABELLE Asthma not in exacerbation Neb treatments PRN Pain management per primary team DVT prophylaxis per primary team Consult PT, Patient may be discharged from a medical standpoint, when seen fit by Primary team History Interval history: left hip pain is well controlled, no sob, no body pains Hospitalist Physical - Physical exam Narrative exam: General: Patient appears well in no distress HEENT: MMM, EOMI cardiac: S1-S2 heard lungs: clear to auscultation, abdomen: soft, nontender, nondistended bowel sounds positive extremities: no edema clubbing or cyanosis Skin: no rash or lesion Neuro: no focal deficit Psych: appropriate behavior and mood, cognition intact - Constitutional Vitals: Temp Pulse Resp BP Pulse Ox 97.1 F L 106 H 18 127/76 96 04/19/17 01:24 04/19/17 01:24 04/19/17 01:24 04/19/17 01:24 04/19/17 00:00 General appearance: Present: no acute distress, well-nourished Results - Labs CBC & Chem 7: 04/19/17 05:54 04/19/17 05:54 Labs: Laboratory Last Values WBC 7.8 K/mm3 (4.5-11.0) 04/16/17 11:00 RBC 3.79 M/mm3 (3.65-5.03) 04/16/17 11:00 Hgb 9.0 gm/dl (10.1-14.3) L 04/19/17 05:54 Hct 27.0 % (30.3-42.9) L 04/19/17 05:54 MCV 85 fl (79-97) 04/16/17 11:00 MCH 28 pg (28-32) 04/16/17 11:00 MCHC 33 % (30-34) 04/16/17 11:00 RDW 16.0 % (13.2-15.2) H 04/16/17 11:00 Plt Count 268 K/mm3 (140-440) 04/16/17 11:00 Lymph % (Auto) 32.1 % (13.4-35.0) 04/16/17 11:00 [place] % (Auto) 4.7 % (0.0-7.3) 04/16/17 11:00 Eos % (Auto) 1.8 % (0.0-4.3) 04/16/17 11:00 Baso % (Auto) 0.8 % (0.0-1.8) 04/16/17 11:00 Lymph # 2.5 K/mm3 (1.2-5.4) 04/16/17 11:00 [place] # 0.4 K/mm3 (0.0-0.8) 04/16/17 11:00 Eos # 0.1 K/mm3 (0.0-0.4) 04/16/17 11:00 Baso # 0.1 K/mm3 (0.0-0.1) 04/16/17 11:00 Seg Neutrophils % 60.6 % (40.0-70.0) 04/16/17 11:00 Seg Neutrophils # 4.7 K/mm3 (1.8-7.7) 04/16/17 11:00 Sodium 137 mmol/L (137-145) 04/19/17 05:54 Potassium 3.6 mmol/L (3.6-5.0) 04/19/17 05:54 Chloride 102.7 mmol/L (98-107) 04/19/17 05:54 Carbon Dioxide 23 mmol/L (22-30) 04/19/17 05:54 Anion Gap 15 mmol/L 04/19/17 05:54 BUN 8 mg/dL (7-17) 04/19/17 05:54 Creatinine 0.6 mg/dL (0.7-1.2) L 04/19/17 05:54 Estimated GFR > 60 ml/min 04/19/17 05:54 BUN/Creatinine Ratio 13.33 % 04/19/17 05:54 Glucose 109 mg/dL (65-100) H 04/19/17 05:54 Calcium 7.9 mg/dL (8.4-10.2) L 04/19/17 05:54 Total Bilirubin < 0.20 mg/dL (0.1-1.2) 04/16/17 11:00 AST 13 units/L (5-40) 04/16/17 11:00 ALT 7 units/L (7-56) 04/16/17 11:00 Alkaline Phosphatase 67 units/L (35-129) 04/16/17 11:00 Total Protein 6.9 g/dL (6.3-8.2) 04/16/17 11:00 Albumin 3.6 g/dL (3.9-5) L 04/16/17 11:00 Albumin/Globulin Ratio 1.1 % 04/16/17 11:00 HCG, Qual Negative (Negative) 04/16/17 11:00 Blood Type A POSITIVE 04/18/17 07:50 Antibody Screen TNR 04/18/17 07:50 RANJAN Antibody Screen Negative 04/18/17 07:50 Crossmatch See Detail 04/18/17 07:50
[2017-04-19] MEDS ORDERED: IRON 18 MG PO SCH (10:00)
[2017-04-19] MEDS: FEOSOL PO SCH (10:30)
[2017-04-19] MEDS: THERAGRAN Tab PO SCH (10:30)
[2017-04-19] MEDS: COLACE PO SCH ×2 (10:30→21:58)
[2017-04-19] MEDS: LOVENOX SUB-Q SCH (10:30)
[2017-04-19] MEDS: HYDREA PO SCH (10:30)
[2017-04-19] MEDS: PERCOCET 5/325 PO PRN (10:46)
--- NOTE | 2017-04-19 14:08 | Progress Note ---
Assessment and Plan - Patient Problems (1) Avascular necrosis Current Visit: No Status: Acute Plan to address problem: Continue with progressive ambulation, weightbearing as tolerated, DVT prophylaxis. We'll recheck hemoglobin tomorrow, he stable discontinue IV. If there is any significant hemoglobin drop, then may need transfusion. Plan discharge to home tomorrow if stable. Subjective Date of service: 04/19/17 Interval history: Day1 postop, total hip replacement. Sitting in chair, walk doorway, pain controlled. Low-grade temperature, expected, no calf pain, tenderness. Dressings are dry. Lab reviewed, postop x-ray is reviewed. Objective Vital signs: Vital Signs - 12hr 04/19/17 07:00 Temperature 99.2 F Pulse Rate [ 113 H Left] Respiratory 18 Rate Blood Pressure 135/81 [Left Arm] O2 Sat by Pulse 98 Oximetry - Labs CBC & BMP: 04/20/17 07:13 04/19/17 05:54 Labs: Abnormal lab results 04/18/17 04/19/17 04/19/17 Range/Units 07:50 05:54 05:54 Hgb 9.0 L (10.1-14.3) gm/dl Hct 27.0 L (30.3-42.9) % Creatinine 0.6 L (0.7-1.2) mg/dL Glucose 109 H (65-100) mg/dL Calcium 7.9 L (8.4-10.2) mg/dL Crossmatch See Detail
[2017-04-19] MEDS: TYLENOL PO PRN ×2 (15:27→20:44)
[2017-04-19] MEDS: BENADRYL PO PRN (20:43)
[2017-04-20] MEDS: DILAUDID IV PRN ×3 (00:10→22:45)
[2017-04-20] MEDS: TYLENOL PO PRN ×3 (04:51→16:31)
[2017-04-20 07:28] LABS: Hematocrit 26.9 % (30.3-42.9); Hemoglobin 8.9 gm/dl (10.1-14.3)
[2017-04-20] MEDS: PERCOCET 5/325 PO PRN ×3 (08:02→18:45)
[2017-04-20] MEDS: OxyCONTIN PO SCH ×2 (09:15→23:19)
[2017-04-20] MEDS: FEOSOL PO SCH (09:15)
[2017-04-20] MEDS: COLACE PO SCH ×2 (09:15→23:19)
[2017-04-20] MEDS: HYDREA PO SCH (09:15)
[2017-04-20] MEDS: LOVENOX SUB-Q SCH (09:17)
[2017-04-20] MEDS: THERAGRAN Tab PO SCH (09:25)
--- NOTE | 2017-04-20 09:48 | Progress Note ---
Assessment and Plan Assessment and plan: 36-year-old -Gambian female with history of sickle cell anemia and asthma chronic pain had a left hip replacement Fever of > 102 -was febrile from 9:15pm last night to 5:40am this am -was given Tylenol by assistant shift supervisor nurse -obtain UA, urine cx, blood cx and CXR -she had refused thompson removal for 2 days, but finally had it removed last night Sickle cell disease, type SC Not in crisis, hg stable post op Avascular necrosis sp L ANNABELLE -continue PT Asthma not in exacerbation Neb treatments PRN Pain management per primary team DVT prophylaxis per primary team History Interval history: left hip pain is well controlled, no sob, no body pains Hospitalist Physical - Physical exam Narrative exam: General: Patient appears well in no distress HEENT: MMM, EOMI cardiac: S1-S2 heard lungs: clear to auscultation, abdomen: soft, nontender, nondistended bowel sounds positive extremities: no edema clubbing or cyanosis Skin: no rash or lesion Neuro: no focal deficit Psych: appropriate behavior and mood, cognition intact - Constitutional Vitals: Temp Pulse Resp BP Pulse Ox 98.1 F 109 H 18 115/75 98 04/20/17 07:00 04/20/17 07:00 04/20/17 07:00 04/20/17 07:00 04/20/17 07:00 General appearance: Present: no acute distress, well-nourished Results - Labs CBC & Chem 7: 04/20/17 07:13 04/19/17 05:54 Labs: Laboratory Last Values WBC 7.8 K/mm3 (4.5-11.0) 04/16/17 11:00 RBC 3.79 M/mm3 (3.65-5.03) 04/16/17 11:00 Hgb 8.9 gm/dl (10.1-14.3) L 04/20/17 07:13 Hct 26.9 % (30.3-42.9) L 04/20/17 07:13 MCV 85 fl (79-97) 04/16/17 11:00 MCH 28 pg (28-32) 04/16/17 11:00 MCHC 33 % (30-34) 04/16/17 11:00 RDW 16.0 % (13.2-15.2) H 04/16/17 11:00 Plt Count 268 K/mm3 (140-440) 04/16/17 11:00 Lymph % (Auto) 32.1 % (13.4-35.0) 04/16/17 11:00 [place] % (Auto) 4.7 % (0.0-7.3) 04/16/17 11:00 Eos % (Auto) 1.8 % (0.0-4.3) 04/16/17 11:00 Baso % (Auto) 0.8 % (0.0-1.8) 04/16/17 11:00 Lymph # 2.5 K/mm3 (1.2-5.4) 04/16/17 11:00 [place] # 0.4 K/mm3 (0.0-0.8) 04/16/17 11:00 Eos # 0.1 K/mm3 (0.0-0.4) 04/16/17 11:00 Baso # 0.1 K/mm3 (0.0-0.1) 04/16/17 11:00 Seg Neutrophils % 60.6 % (40.0-70.0) 04/16/17 11:00 Seg Neutrophils # 4.7 K/mm3 (1.8-7.7) 04/16/17 11:00 Sodium 137 mmol/L (137-145) 04/19/17 05:54 Potassium 3.6 mmol/L (3.6-5.0) 04/19/17 05:54 Chloride 102.7 mmol/L (98-107) 04/19/17 05:54 Carbon Dioxide 23 mmol/L (22-30) 04/19/17 05:54 Anion Gap 15 mmol/L 04/19/17 05:54 BUN 8 mg/dL (7-17) 04/19/17 05:54 Creatinine 0.6 mg/dL (0.7-1.2) L 04/19/17 05:54 Estimated GFR > 60 ml/min 04/19/17 05:54 BUN/Creatinine Ratio 13.33 % 04/19/17 05:54 Glucose 109 mg/dL (65-100) H 04/19/17 05:54 Calcium 7.9 mg/dL (8.4-10.2) L 04/19/17 05:54 Total Bilirubin < 0.20 mg/dL (0.1-1.2) 04/16/17 11:00 AST 13 units/L (5-40) 04/16/17 11:00 ALT 7 units/L (7-56) 04/16/17 11:00 Alkaline Phosphatase 67 units/L (35-129) 04/16/17 11:00 Total Protein 6.9 g/dL (6.3-8.2) 04/16/17 11:00 Albumin 3.6 g/dL (3.9-5) L 04/16/17 11:00 Albumin/Globulin Ratio 1.1 % 04/16/17 11:00 HCG, Qual Negative (Negative) 04/16/17 11:00 Blood Type A POSITIVE 04/18/17 07:50 Antibody Screen TNR 04/18/17 07:50 RANJAN Antibody Screen Negative 04/18/17 07:50 Crossmatch See Detail 04/18/17 07:50
--- NOTE | 2017-04-20 10:35 | XRay Report ---
CHEST 2 VIEWS INDICATION: Fever. COMPARISON: 12/29/2016. FINDINGS: PA and lateral chest radiographs demonstrate normal cardiomediastinal silhouette. Clear lungs. Intact bones. GI air noted beneath the left hemidiaphragm. CONCLUSION: No acute disease in the chest. Thank you for the opportunity to participate in this patient's care.
--- NOTE | 2017-04-20 11:14 | Discharge Summary ---
Providers - Providers Date of Admission: 04/18/17 06:43 Date of discharge: 04/21/17 Attending physician: SLICK CANCINO 04/18/17 00:01 Consult to Case Management [CONS] Routine Services Needed at Discharge: Physical Therapy Home Health Services Notified:: SOFTWARE PRODUCT SPECIALIST Consult to Physician [CONS] Routine Consulting Provider: ELODIA ALEGRIA Reason For Exam: post op management care Place consult to:: DR. ALEGRIA Notified:: DR. ALEGRIA Was contact made?: Yes If yes, spoke with:: DR. ALEGRIA Time called:: 14:45 Comment:: CONSULT COMPLETED - JAYLON 04/18/17 14:36 Occupational Therapy Evaluate and Treat [CONS] Routine Comment: begin post op day 1 Reason For Exam: post op total hip Physical Therapy Evaluation and Treat [CONS] Routine Comment: avoid flexion, add, int rotation of operative hip Reason For Exam: post op total hip Weight bearing status?: Full wt bearing Assistive devices?: Yes Primary care physician: FUNERAL HOME ASSISTANT Hospitalization Reason for admission: avascular necrosis left hip Condition: Stable Procedures: left total hip arthroplasty, [place], noncemented. Hospital course: Uneventful Disposition: DC-01 TO HOME OR SELFCARE - Discharge Diagnoses (1) Avascular necrosis Status: Acute Core Measure Documentation - Palliative Care Palliative Care/ Comfort Measures: Not Applicable - Core Measures Any of the following diagnoses?: none Exam - Constitutional Vitals: Temp Pulse Resp BP Pulse Ox 98.1 F 109 H 18 115/75 98 04/20/17 07:00 04/20/17 07:00 04/20/17 07:00 04/20/17 07:00 04/20/17 07:00 Plan Activity: advance as tolerated, no driving until cleared by PCP, up only with assistance, fall precautions, avoid flexion Weight Bearing Status: Full Weight Bearing Diet: regular Wound: per your surgeon's advice Durable Medical Equipment Needed Upon Discharge: Walker-Rolling, Bedside commode -elevated Follow up with: VALENTINA JONES MD [Primary Care Provider] - 7 Days SLICK CANCINO MD [Staff Physician] - 7 Days
--- NOTE | 2017-04-20 13:31 | Progress Note ---
Assessment and Plan - Patient Problems (1) Avascular necrosis Status: Acute Plan to address problem: Continue with progressive ambulation, weightbearing as tolerated, DVT prophylaxis. We'll recheck hemoglobin tomorrow, he stable discontinue IV. If there is any significant hemoglobin drop, then may need transfusion. Plan discharge to home tomorrow if stable. Subjective Date of service: 04/20/17 Interval history: Day1 postop, total hip replacement. Sitting in chair, walk doorway, pain controlled. Low-grade temperature, expected, no calf pain, tenderness. Dressings are dry. Lab reviewed, postop x-ray is reviewed. Objective Vital signs: Vital Signs - 12hr 04/20/17 04/20/17 04/20/17 04:51 05:37 06:30 Temperature 101.3 F H 99.7 F H Pulse Rate [ 108 H 97 H Left] Respiratory 18 20 18 Rate Blood Pressure 112/72 118/78 [Left Arm] O2 Sat by Pulse 97 Oximetry 04/20/17 04/20/17 07:00 11:57 Temperature 98.1 F 101.4 F H Pulse Rate [ 109 H 117 H Left] Respiratory 18 22 Rate Blood Pressure 115/75 112/71 [Left Arm] O2 Sat by Pulse 98 Oximetry - Labs CBC & BMP: 04/21/17 05:35 04/21/17 05:35 Labs: Abnormal lab results 04/20/17 Range/Units 07:13 Hgb 8.9 L (10.1-14.3) gm/dl Hct 26.9 L (30.3-42.9) %
[2017-04-21] MEDS: DILAUDID IV PRN ×2 (01:45→08:17)
[2017-04-21 06:41] LABS: Bacteria,Urine 4+ /HPF (Negative); Bilirubin,Urine NEG (Negative); Blood,Urine MOD (Negative); Ketones,Urine NEG (Negative); Leukocyte Esterase,Urine LG (Negative); Mucus,Urine 1+ /HPF; Nitrite,Urine NEG (Negative); Protein,Urine <15 mg/dL mg/dL (Negative); Urobilinogen,Urine < 2.0 mg/dL (<2.0)
[2017-04-21 07:21] LABS: Basophils % (Auto) 0.3 % (0.0-1.8); Eosinophils % (Auto) 4.2 % (0.0-4.3); Hematocrit 23.7 % (30.3-42.9); Hemoglobin 7.9 gm/dl (10.1-14.3); Mean Corpuscular HGB Conc 34 % (30-34); Mean Corpuscular Hemoglobin 28 pg (28-32); Mean Corpuscular Volume 85 fl (79-97); Platelet Count 220 K/mm3 (140-440); Red Blood Count 2.79 M/mm3 (3.65-5.03); Red Cell Distribution Width 15.8 % (13.2-15.2); White Blood Count 10.3 K/mm3 (4.5-11.0)
[2017-04-21 07:49] LABS: Alanine Aminotransferase 13 units/L (7-56); Albumin 2.9 g/dL (3.9-5); Albumin/Globulin Ratio 0.8 %; Alkaline Phosphatase 66 units/L (35-129); Anion Gap 15 mmol/L; Blood Urea Nitrogen 8 mg/dL (7-17); Calcium 8.7 mg/dL (8.4-10.2); Carbon Dioxide 27 mmol/L (22-30); Chloride 98.6 mmol/L (98-107); Glucose 101 mg/dL (65-100); Potassium 3.8 mmol/L (3.6-5.0); Sodium 137 mmol/L (137-145); Total Protein 6.5 g/dL (6.3-8.2)
[2017-04-21] MEDS: BENADRYL PO PRN (08:17)
[2017-04-21 09:27] VITALS: BP 108/68
--- NOTE | 2017-04-21 09:55 | Progress Note ---
Subjective Date of service: 04/21/17 Interval history: Assessment and plan: 36-year-old -Grenadian female with history of sickle cell anemia and chronic pain is s/p left hip replacement Fever -Had a low-grade fever yesterday Temp is trending down No focus of infection Urine analysis is normal WBC is in the normal range Blood cultures no growth to date Likely secondary to anesthesia effect We will monitor Sickle cell disease, type SC Not in crisis, hg stable post op Continue hydroxyurea Avascular necrosis sp L ANNABELLE -continue PT/OT Asthma not in exacerbation Neb treatments PRN Pain management Patient says that her pain is not managed well Per patient request we'll increase the Percocet to 2 tablets every 6 hours when necessary Continue DVT prophylaxis Subjective: Complains of pain in the operated hip and left knee Denies chest pain palpitations dizziness cough or shortness of breath Objective - Constitutional Vitals: Vital Signs - 12hr 04/20/17 04/21/17 23:22 09:00 Temperature 97.5 F L 98.9 F Pulse Rate [ 116 H 94 H Left] Respiratory 20 16 Rate Blood Pressure 124/74 108/68 [Left Arm] O2 Sat by Pulse 100 100 Oximetry General appearance: Present: no acute distress, well-nourished - EENT Eyes: PERRL, EOM intact ENT: hearing intact, clear oral mucosa, no thrush - Neck Neck: supple, normal ROM - Respiratory Respiratory effort: normal Respiratory: bilateral: CTA - Breasts Breasts: deferred - Cardiovascular Rhythm: regular Heart Sounds: Present: S1 & S2 Extremities: No edema - Gastrointestinal General gastrointestinal: Present: soft, non-tender. Absent: hepatomegaly, splenomegaly Rectal Exam: deferred - Genitourinary Female genitourinary: deferred - Integumentary Integumentary: clear - Musculoskeletal Musculoskeletal: strength equal bilaterally - Neurologic Neurologic: CNII-XII intact, no focal deficits - Labs CBC & Chem 7: 04/21/17 05:35 04/21/17 05:35 Labs: Abnormal lab results 04/18/17 04/20/17 04/21/17 Range/Units 07:50 23:25 05:35 RBC 2.79 L (3.65-5.03) M/mm3 Hgb 7.9 L (10.1-14.3) gm/dl Hct 23.7 L (30.3-42.9) % RDW 15.8 H (13.2-15.2) % [place] % (Auto) 7.5 H (0.0-7.3) % Creatinine (0.7-1.2) mg/dL Glucose (65-100) mg/dL Albumin (3.9-5) g/dL U Epithel Cells (Auto) 14.0 H (0-13.0) /HPF Crossmatch See Detail 04/21/17 Range/Units 05:35 RBC (3.65-5.03) M/mm3 Hgb (10.1-14.3) gm/dl Hct (30.3-42.9) % RDW (13.2-15.2) % [place] % (Auto) (0.0-7.3) % Creatinine 0.5 L (0.7-1.2) mg/dL Glucose 101 H (65-100) mg/dL Albumin 2.9 L (3.9-5) g/dL U Epithel Cells (Auto) (0-13.0) /HPF Crossmatch
[2017-04-21] MEDS ORDERED: PERCOCET 5/325 PO PRN (10:00)
[2017-04-21] MEDS: THERAGRAN Tab PO SCH (10:25)
[2017-04-21] MEDS: LOVENOX SUB-Q SCH (10:26)
[2017-04-21] MEDS: FEOSOL PO SCH (10:26)
[2017-04-21] MEDS: HYDREA PO SCH (10:26)
[2017-04-21] MEDS: OxyCONTIN PO SCH (10:26)
[2017-04-21] MEDS: COLACE PO SCH (11:24)
== END 2017-04-21 10:50 | disposition home or self-care (01) | DRG 470 ==
LOC: 3A 06:43 → 2B-SURG 11:15
PROVIDERS: ADMIT Orthopaedic Surgery; ATTEND Orthopaedic Surgery
PROC: 0SRB03A Replacement of Left Hip Joint with Ceramic Synthetic Substitute, Uncemented, Open Approach (ICD-10-PCS; principal; 2017-04-18)
DX: M87.852 Other osteonecrosis, left femur (principal); D57.20 Sickle-cell/Hb-C disease without crisis; J44.9 Chronic obstructive pulmonary disease, unspecified; G89.29 Other chronic pain; F12.90 Cannabis use, unspecified, uncomplicated; F17.200 Nicotine dependence, unspecified, uncomplicated; Z87.01 Personal history of pneumonia (recurrent)
CPT/HCPCS: 36415; 71020; 80048; 80053; 81001; 84703; 85014; 85018; 85025; 86850; 86900; 86901; 86920; 87040; 87086; 88304; 88305; 88311; A4217; C1776; J0360; J0690; J1170; J1650; J2250; J2270; J2405; J2704; J2710; J3010; J7030

== ENCOUNTER 2017-04-24 23:06 | Emergency (ER) | payer OTHER ==
[2017-04-25] MEDS ORDERED: MORPHINE IV ONE (00:03)
[2017-04-25] MEDS ORDERED: NACL 0.9% 1000 ML 1,000 ML IV ONE (00:03)
--- NOTE | 2017-04-25 00:10 | Emergency Department Report ---
HPI - General Chief Complaint: Extremity Problem,Nontraumatic Time Seen by Provider: 04/24/17 23:41 - HPI HPI: This is a 36-year-old Afro-Northern Irish female presents to the emergency department by EMS from home with complaint of left hip pain and swelling that has been getting grossly worse and she had a left hip replacement surgery done [address] Cancino. She says that she has been mostly resting in her room but has been walking around some and transferring at home. She's been taking the Percocet that were prescribed without any relief. She denies any skin color change or purulent discharge but does state that there is some yellowish bruising around the incision site. 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 ED Past Medical Hx - Past Medical History Hx Hypertension: No Hx CVA: No Hx Heart Attack/AMI: No Hx Congestive Heart Failure: No Hx Diabetes: No Hx Deep Vein Thrombosis: Yes Hx Pulmonary Embolism: No Hx GERD: No Hx Liver Disease: No Hx Renal Disease: No Hx Sickle Cell Disease: Yes Hx Arthritis: Yes (CHRONIC PAIN) Hx Headaches / Migraines: No Hx Seizures: No Hx Kidney Stones: No Hx Psychiatric Treatment: No Hx Asthma: Yes (INHALER PRN) Hx COPD: No Hx Tuberculosis: No Hx Dementia: No Hx HIV: No 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, Stomach ulcers - Surgical History Hx Coronary Stent: No Hx Open Heart Surgery: No Hx Pacemaker: No Hx Internal Defibrillator: No Hx Cholecystectomy: No Hx Appendectomy: No Hx Breast Surgery: No Additional Surgical History: c-secx7, hernia, nerve, left hip replacement - Social History Smoking Status: Current Every Day Smoker Substance Use Type: None - Medications Home Medications: Home Medications Medication Instructions Recorded Confirmed Last Taken Type ALBUTEROL Inhaler [ProAir HFA 2 puff IH QID PRN 12/29/16 04/18/17 04/04/17 History Inhaler] Hydroxyurea [Hydrea] 500 mg PO QDAY #300 capsule 12/31/16 04/09/17 04/17/17 Rx Iron 18 mg PO QDAY 04/09/17 04/09/17 04/17/17 History oxyCODONE /ACETAMINOPHEN [Percocet 1 tab PO Q6HR PRN #14 tablet 04/25/17 Unknown Rx 5/325] ED Review of Systems ROS: Stated complaint: LT LEG PAIN/SWELLING Other details as noted in HPI Comment: All other systems reviewed and negative Constitutional: denies: chills, fever Eyes: denies: eye pain, eye discharge, vision change ENT: denies: ear pain, throat pain Respiratory: denies: cough, shortness of breath, wheezing Cardiovascular: edema. denies: chest pain, palpitations Gastrointestinal: denies: abdominal pain, nausea, diarrhea Genitourinary: denies: urgency, dysuria, discharge Musculoskeletal: arthralgia, myalgia Skin: denies: rash, pruritus Neurological: denies: headache, weakness, paresthesias Physical Exam - Physical Exam Vital Signs: Vital Signs 04/24/17 23:22 Temperature 99.3 F Pulse Rate 91 H Respiratory 20 Rate Blood Pressure 114/59 Blood Pressure 114/59 [Left] O2 Sat by Pulse 20 L Oximetry Physical Exam: GENERAL: The patient is well-developed well-nourished. HEENT: Normocephalic. Atraumatic. Extraocular motions are intact. Patient has moist mucous membranes. Pupils equal reactive to light bilaterally. NECK: Supple. Trachea is midline. CHEST/LUNGS: Clear to auscultation. There is no respiratory distress noted. HEART/CARDIOVASCULAR: Regular. There is no tachycardia. There is no gallop rub or murmur. ABDOMEN: Abdomen is soft, nontender. Patient has normal bowel sounds. There is no abdominal distention. SKIN: There is a long left lateral hip incisional wound seen but it does not appear infected. There is no surrounding erythema or any current oozing, bleeding or purulent discharge. NEURO: The patient is awake, alert, and oriented. The patient is cooperative. The patient has no focal neurologic deficits. The patient has normal speech. MUSCULOSKELETAL: There is some tenderness to palpation along the left hip with the patient has recent hip replacement surgery and a incisional wound. There is no limitation range of motion. There is no evidence of acute injury. ED Course Vital Signs 04/24/17 23:22 Temperature 99.3 F Pulse Rate 91 H Respiratory 20 Rate Blood Pressure 114/59 Blood Pressure 114/59 [Left] O2 Sat by Pulse 20 L Oximetry ED Medical Decision Making - Lab Data Result diagrams: 04/25/17 00:32 04/25/17 00:32 - Radiology Data Radiology results: image reviewed interpreted by me: X-ray of the left hip shows no acute fracture, dislocation or any acute process. Hip replacement hardware is in place. - Medical Decision Making 28-year-old female presents to the emergency department with postoperative left hip replacement pain and some swelling. There does not appear to be any signs or symptoms of infection at this time. The incision appears clean without any bruising, bleeding or purulent discharge. There is no surrounding erythema. The patient does not have any fever and vital signs stable throughout her ED course. Labs do not show any leukocytosis, electrolyte abnormalities, renal insufficiency or glucose abnormalities. X-ray was done of the left hip that shows the hardware in place without any fracture, dislocation or any acute process. The patient did get some pain relief and is feeling improved. However the patient has concern that she is unable to take care of herself, clean the incision and take care of her family as she did not expect this level of postoperative discomfort. She feels that she needs home health care, at least temporarily and/or intermittently, in order to be able to heal appropriately. No promises were made, but the patient was allowed to stay within the emergency department until case management arrives and they will talk with her about possible home health care set up through her insurance. The patient asked for other orthopedic referrals so they were given which she was also still encouraged to return back to her previous orthopedist or the physician who did her surgery for follow-up care. - Differential Diagnosis fracture, dislocation, abscess, cellulitis Critical Care Time: No Critical care attestation.: If time is entered above; I have spent that time in minutes in the direct care of this critically ill patient, excluding procedure time. ED Disposition Clinical Impression: Post-operative pain, Left hip pain Disposition: DC-01 TO HOME OR SELFCARE Is pt being admited?: No Condition: Stable Instructions: Arthralgia (ED) Additional Instructions: I have given you a referral for a different orthopedist, Dr. Chacko, in case he would like to see a different orthopedist. However have also given you the referral information for Dr. Cancino, the orthopedist that did show a hip replacement surgery. Return to the emergency department with any worsening of your symptoms or any acute distress. You've been prescribed a medication that is sedating. Therefore this medication cannot be mixed with alcohol, or taken prior to driving, working, or being responsible for children. Prescriptions: oxyCODONE /ACETAMINOPHEN [Percocet 5/325] 1 tab PO Q6HR PRN #14 tablet PRN Reason: Pain Referrals: BAL KU MD [Primary Care Provider] - 3-5 Days SLICK CANCINO MD [Staff Physician] - 3-5 Days ALEJANDRO CHACKO MD [Staff Physician] - 3-5 Days Time of Disposition: 05:29
[2017-04-25 00:54] LABS: Basophils % (Auto) 0.3 % (0.0-1.8); Eosinophils % (Auto) 6.3 % (0.0-4.3); Hematocrit 21.7 % (30.3-42.9); Hemoglobin 7.3 gm/dl (10.1-14.3); Mean Corpuscular HGB Conc 34 % (30-34); Mean Corpuscular Hemoglobin 28 pg (28-32); Mean Corpuscular Volume 84 fl (79-97); Platelet Count 304 K/mm3 (140-440); Red Blood Count 2.58 M/mm3 (3.65-5.03); Red Cell Distribution Width 15.8 % (13.2-15.2); White Blood Count 8.4 K/mm3 (4.5-11.0)
[2017-04-25] MEDS ORDERED: DILAUDID IV ONE ×3 (00:58→07:14)
[2017-04-25 01:03] LABS: Anion Gap 16 mmol/L; BUN/Creatinine Ratio 11.66; Blood Urea Nitrogen 7 mg/dL (7-17); Calcium 8.6 mg/dL (8.4-10.2); Carbon Dioxide 24 mmol/L (22-30); Chloride 101.5 mmol/L (98-107); Glucose 94 mg/dL (65-100); Potassium 3.7 mmol/L (3.6-5.0); Sodium 138 mmol/L (137-145)
[2017-04-25] MEDS ORDERED: BENADRYL IV ONE (02:28)
[2017-04-25 07:03] VITALS: BP 127/77
--- NOTE | 2017-04-25 08:33 | XRay Report ---
LEFT HIP RADIOGRAPHS INDICATION: Postop pain. COMPARISON: 04/18/2017. FINDINGS: An AP pelvic radiograph with frog-leg projection of the left hip again demonstrates intact arthroplasty appearance with overlying skin scott. Left acetabular spurring. Imaged bilateral SI and right hip joints appear intact. Few lower lumbar degenerative changes. Nonobstructive bowel gas pattern. Hepatomegaly questioned. CONCLUSION: No acute replaced left hip radiographic abnormality with few other findings, as above. Please correlate. Thank you for the opportunity to participate in this patient's care.
== END 2017-04-25 11:40 | disposition home or self-care (01) ==
LOC: ED 23:06
DX: M25.552 Pain in left hip (principal); G89.18 Other acute postprocedural pain; G89.29 Other chronic pain; J45.909 Unspecified asthma, uncomplicated; F17.200 Nicotine dependence, unspecified, uncomplicated; Z86.718 Personal history of other venous thrombosis and embolism
CPT/HCPCS: 36415; 73502; 80048; 85025; 96361; 96374; 96375; 96376; 99284; J1170; J1200; J2270; J7030

== ENCOUNTER 2017-04-29 17:19 | Emergency (ER) | payer OTHER ==
[2017-04-29] MEDS ORDERED: D5NS 0.2% 1,000 ML IV SCH (18:00)
[2017-04-29] MEDS ORDERED: MORPHINE IV ONE (19:08)
[2017-04-29] MEDS ORDERED: ZOFRAN IV ONE (19:08)
[2017-04-29 20:22] LABS: Bacteria,Urine 1+ /HPF (Negative); Bilirubin,Urine NEG (Negative); Blood,Urine SM (Negative); Ketones,Urine NEG (Negative); Leukocyte Esterase,Urine MOD (Negative); Mucus,Urine FEW /HPF; Nitrite,Urine NEG (Negative); Protein,Urine <15 mg/dL mg/dL (Negative); Urobilinogen,Urine < 2.0 mg/dL (<2.0)
--- NOTE | 2017-04-29 20:24 | Emergency Department Report ---
HPI - General Chief Complaint: Sickle Cell Crisis Time Seen by Provider: 04/29/17 19:07 - HPI HPI: Chief complaint: I have left the pain, and sickle cell pain. 36-year-old -Cyp[place] female, presents to the ED with left hip pain postoperative since April 18. Patient have a history of avascular necrosis and had total hip replacement on the left secondary to her AVN. Patient was given pain medicine to take at home but states she ran out. Patient denies any fever or chills but does complain of left leg swelling since her surgery. She has been unable to finish her physical therapy on Sunday due to the pain and swelling. ED Past Medical Hx - Past Medical History Hx Hypertension: No Hx CVA: No Hx Heart Attack/AMI: No Hx Congestive Heart Failure: No Hx Diabetes: No Hx Deep Vein Thrombosis: Yes Hx Pulmonary Embolism: No Hx GERD: No Hx Liver Disease: No Hx Renal Disease: No Hx Sickle Cell Disease: Yes Hx Arthritis: Yes (CHRONIC PAIN) Hx Headaches / Migraines: No Hx Seizures: No Hx Kidney Stones: No Hx Psychiatric Treatment: No Hx Asthma: Yes (INHALER PRN) Hx COPD: No Hx Tuberculosis: No Hx Dementia: No Hx HIV: No 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, Stomach ulcers - Surgical History Past Surgical History?: Yes Hx Coronary Stent: No Hx Open Heart Surgery: No Hx Pacemaker: No Hx Internal Defibrillator: No Hx Cholecystectomy: No Hx Appendectomy: No Hx Breast Surgery: No Additional Surgical History: c-secx7, hernia, nerve, left hip replacement - Social History Smoking Status: Current Every Day Smoker Substance Use Type: Prescribed - Medications Home Medications: Home Medications Medication Instructions Recorded Confirmed Last Taken Type ALBUTEROL Inhaler [ProAir HFA 2 puff IH QID PRN 12/29/16 04/18/17 04/04/17 History Inhaler] Hydroxyurea [Hydrea] 500 mg PO QDAY #300 capsule 12/31/16 04/09/17 04/17/17 Rx Iron 18 mg PO QDAY 04/09/17 04/09/17 04/17/17 History oxyCODONE /ACETAMINOPHEN [Percocet 1 tab PO Q6HR PRN #14 tablet 04/25/17 Unknown Rx 5/325] Sulfamethoxazole/Trimethoprim 1 each PO BID #20 tablet 04/29/17 Unknown Rx [Bactrim DS TAB] ED Review of Systems ROS: Stated complaint: SICKLE CELL CRISIS, WOUND LEAKAGE Other details as noted in HPI Comment: All other systems reviewed and negative Constitutional: no symptoms reported Musculoskeletal: myalgia, other (hip pain left) Physical Exam - Physical Exam Vital Signs: Vital Signs 04/29/17 17:27 Temperature 99.0 F Pulse Rate 104 H Respiratory 18 Rate Blood Pressure 111/67 O2 Sat by Pulse 99 Oximetry Physical Exam: Gen. alert and oriented 3 in no distress Head atraumatic normocephalic Eyes PERR LA EOMI Chest regular rate and rhythm normal S1-S2 lungs clear bilaterally Abdomen soft nondistended Back no point tenderness paravertebral tenderness Neuro no focal deficit. Psych normal mood. Extremity left hip pain with range of motion, active only. Surgical site appears appropriate without redness without drainage. ED Course Vital Signs 04/29/17 17:27 Temperature 99.0 F Pulse Rate 104 H Respiratory 18 Rate Blood Pressure 111/67 O2 Sat by Pulse 99 Oximetry - Reevaluation(s) Reevaluation #1: 04/29/17 20:25 Nurses unable to obtain IV access for treatment. MAVIS Martinez performed right EJ insertion IV access in the sterile manner, without difficulty patient tolerated procedure well. 04/29/17 23:29 ED Medical Decision Making - Lab Data Result diagrams: 04/29/17 20:20 - Medical Decision Making Patient is on Lovenox, and stated that she is compliant. DVT is unlikely since the leg appears appropriate for someone that just had surgery on April 18. No redness does have some mild swelling but not significant Critical care attestation.: If time is entered above; I have spent that time in minutes in the direct care of this critically ill patient, excluding procedure time. ED Disposition Clinical Impression: Postoperative pain of extremity, UTI (urinary tract infection) Disposition: DC-01 TO HOME OR SELFCARE Is pt being admited?: No Does the pt Need Aspirin: No Condition: Stable Prescriptions: Sulfamethoxazole/Trimethoprim [Bactrim DS TAB] 1 each PO BID #20 tablet Referrals: PRIMARY CARE, [Primary Care Provider] - 3-5 Days Forms: AMA Form
[2017-04-29 20:29] LABS: Basophils % (Auto) 0.7 % (0.0-1.8); Eosinophils % (Auto) 3.7 % (0.0-4.3); Hematocrit 25.6 % (30.3-42.9); Hemoglobin 8.5 gm/dl (10.1-14.3); Mean Corpuscular HGB Conc 33 % (30-34); Mean Corpuscular Hemoglobin 28 pg (28-32); Mean Corpuscular Volume 84 fl (79-97); Platelet Count 411 K/mm3 (140-440); Red Blood Count 3.06 M/mm3 (3.65-5.03); Red Cell Distribution Width 17.3 % (13.2-15.2); Reticulocyte % 3.05 % (0.78-2.58); White Blood Count 11.3 K/mm3 (4.5-11.0)
[2017-04-29] MEDS ORDERED: DILAUDID IV ONE ×2 (21:22→23:20)
[2017-04-29] MEDS ORDERED: ZOFRAN ONE (21:30)
--- NOTE | 2017-04-29 22:36 | Cat Scan Report ---
FINAL REPORT PROCEDURE: CT PELVIS WO CON TECHNIQUE: Computerized axial tomography of the pelvis was performed without contrast material. HISTORY: left hip pain, post replacement, r/o abscess COMPARISON: No prior studies are available for comparison. TECHNICAL QUALITY: Satisfactory. FINDINGS: A total hip prosthesis is identified on the left side with satisfactory alignment. Right hip joint demonstrates narrowing of the joint space with normal alignment. An acute fracture is not identified. There is no evidence of any joint effusion or fluid collection as visualized on this noncontrast study. Soft tissues are within normal limits. Pelvic viscera are unremarkable. IMPRESSION: Impression Left hip prosthesis demonstrating satisfactory alignment. No evidence of any fluid collection. No acute fracture Osteoarthritis right hip joint
[2017-04-29 23:42] VITALS: BP 121/64
== END 2017-04-29 23:42 | disposition home or self-care (01) ==
LOC: ED 17:19
DX: N39.0 Urinary tract infection, site not specified (principal); M25.552 Pain in left hip; G89.18 Other acute postprocedural pain; J45.909 Unspecified asthma, uncomplicated; F17.200 Nicotine dependence, unspecified, uncomplicated
CPT/HCPCS: 36415; 36569; 72192; 81001; 81025; 85025; 85045; 96361; 96374; 96375; 96376; 99284; J1170; J2405

== ENCOUNTER 2017-05-26 15:15 | Emergency (ER) | payer OTHER ==
[2017-05-26] MEDS ORDERED: D5NS 0.2% 1,000 ML IV SCH (16:00)
[2017-05-26] MEDS ORDERED: MORPHINE IV ONE ×2 (20:45→21:49)
[2017-05-26] MEDS ORDERED: NACL 0.9% 1000 ML 1,000 ML IV ONE (20:45)
[2017-05-26] MEDS ORDERED: ZOFRAN IV ONE (20:45)
--- NOTE | 2017-05-26 20:49 | Emergency Department Report ---
ED General Adult HPI - General Chief complaint: Sickle Cell Crisis Stated complaint: SICKLE CELL Time Seen by Provider: 05/26/17 20:39 Source: patient Mode of arrival: Wheelchair Limitations: No Limitations - History of Present Illness Initial comments: 36 yo female sickle cell disease, with a sickle cell crisis c/o generalized pain. Started 3 days ago. Patient denied any history of fever nausea or vomiting. -: days(s) (3 days) Severity scale (0 -10): 10 - Related Data Home Medications Medication Instructions Recorded Confirmed Last Taken ALBUTEROL Inhaler [ProAir HFA 2 puff IH QID PRN 12/29/16 04/18/17 04/04/17 Inhaler] Iron 18 mg PO QDAY 04/09/17 04/09/17 04/17/17 Previous Rx's Medication Instructions Recorded Last Taken Type Hydroxyurea [Hydrea] 500 mg PO QDAY #300 capsule 12/31/16 04/17/17 Rx oxyCODONE /ACETAMINOPHEN [Percocet 1 tab PO Q6HR PRN #14 tablet 04/25/17 Unknown Rx 5/325] Sulfamethoxazole/Trimethoprim 1 each PO BID #20 tablet 04/29/17 Unknown Rx [Bactrim DS TAB] Allergies Allergy/AdvReac Type Severity Reaction Status Date / Time NSAIDS (Non-Steroidal Allergy Intermediate Hives Verified 04/29/17 17:26 Anti-Inflamma ED Review of Systems ROS: Stated complaint: SICKLE CELL Other details as noted in HPI Comment: All other systems reviewed and negative Constitutional: denies: chills, diaphoresis, fever Respiratory: denies: cough, shortness of breath, SOB with exertion Cardiovascular: palpitations. denies: chest pain Gastrointestinal: denies: abdominal pain, nausea, vomiting, diarrhea Musculoskeletal: back pain, arthralgia, myalgia Skin: denies: rash, lesions Neurological: denies: headache, weakness, paresthesias Psychiatric: denies: anxiety, depression, suicidal thoughts ED Past Medical Hx - Past Medical History Hx Hypertension: No Hx CVA: No Hx Heart Attack/AMI: No Hx Congestive Heart Failure: No Hx Diabetes: No Hx Deep Vein Thrombosis: Yes Hx Pulmonary Embolism: No Hx GERD: No Hx Liver Disease: No Hx Renal Disease: No Hx Sickle Cell Disease: Yes Hx Arthritis: Yes (CHRONIC PAIN) Hx Headaches / Migraines: No Hx Seizures: No Hx Kidney Stones: No Hx Psychiatric Treatment: No Hx Asthma: Yes (INHALER PRN) Hx COPD: No Hx Tuberculosis: No Hx Dementia: No Hx HIV: No 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, Stomach ulcers - Surgical History Hx Coronary Stent: No Hx Open Heart Surgery: No Hx Pacemaker: No Hx Internal Defibrillator: No Hx Cholecystectomy: No Hx Appendectomy: No Hx Breast Surgery: No Additional Surgical History: c-secx7, hernia, nerve, left hip replacement - Social History Smoking Status: Current Some Day Smoker Substance Use Type: None - Medications Home Medications: Home Medications Medication Instructions Recorded Confirmed Last Taken Type ALBUTEROL Inhaler [ProAir HFA 2 puff IH QID PRN 12/29/16 04/18/17 04/04/17 History Inhaler] Hydroxyurea [Hydrea] 500 mg PO QDAY #300 capsule 12/31/16 04/09/17 04/17/17 Rx Iron 18 mg PO QDAY 04/09/17 04/09/17 04/17/17 History oxyCODONE /ACETAMINOPHEN [Percocet 1 tab PO Q6HR PRN #14 tablet 04/25/17 Unknown Rx 5/325] Sulfamethoxazole/Trimethoprim 1 each PO BID #20 tablet 04/29/17 Unknown Rx [Bactrim DS TAB] ED Physical Exam - General Limitations: No Limitations General appearance: alert, in no apparent distress - Head Head exam: Present: atraumatic - Eye Eye exam: Present: normal appearance - ENT ENT exam: Present: normal exam, normal orophraynx, mucous membranes moist - Neck Neck exam: Present: normal inspection, full ROM. Absent: tenderness, meningismus - Respiratory Respiratory exam: Present: normal lung sounds bilaterally. Absent: respiratory distress, wheezes, rales, rhonchi - Cardiovascular Cardiovascular Exam: Present: regular rate, normal rhythm, normal heart sounds - GI/Abdominal GI/Abdominal exam: Present: soft. Absent: tenderness, guarding, rebound - Extremities Exam Extremities exam: Present: normal inspection ED Course Vital Signs 05/26/17 05/26/17 05/26/17 15:33 20:31 20:32 Temperature 98.8 F 98.1 F Pulse Rate 93 H 79 Respiratory 18 18 Rate Blood Pressure 110/67 Blood Pressure 111/63 [Right] O2 Sat by Pulse 100 99 99 Oximetry - Reevaluation(s) Reevaluation #1: 08/19/17 22:10 Patient stated that she is feeling better her pain is much better still denying any chest pain no fever no nausea no vomiting will discharge home to follow-up with her primary care physician. ED Medical Decision Making - Lab Data Result diagrams: 05/26/17 21:01 05/26/17 21:01 Critical care attestation.: If time is entered above; I have spent that time in minutes in the direct care of this critically ill patient, excluding procedure time. ED Disposition Clinical Impression: Sickle cell anemia with pain Disposition: DC-01 TO HOME OR SELFCARE Is pt being admited?: No Condition: Stable Instructions: Sickle Cell Crisis (ED) Referrals: PRIMARY CARE, [Primary Care Provider] - 3-5 Days
[2017-05-26] MEDS ORDERED: BENADRYL IV ONE (21:20)
[2017-05-26 21:29] LABS: Basophils % (Auto) 1.4 % (0.0-1.8); Hematocrit 29.9 % (30.3-42.9); Hemoglobin 9.7 gm/dl (10.1-14.3); Mean Corpuscular HGB Conc 32 % (30-34); Mean Corpuscular Hemoglobin 26 pg (28-32); Mean Corpuscular Volume 81 fl (79-97); Platelet Count 360 K/mm3 (140-440); Red Cell Distribution Width 17.5 % (13.2-15.2); Reticulocyte % 1.72 % (0.78-2.58); White Blood Count 9.1 K/mm3 (4.5-11.0)
[2017-05-26 21:47] LABS: Alanine Aminotransferase 8 units/L (7-56); Albumin 4.2 g/dL (3.9-5); Albumin/Globulin Ratio 1.3 %; Alkaline Phosphatase 87 units/L (35-129); Anion Gap 19 mmol/L; BUN/Creatinine Ratio 11.66; Blood Urea Nitrogen 7 mg/dL (7-17); Calcium 9.4 mg/dL (8.4-10.2); Carbon Dioxide 22 mmol/L (22-30); Chloride 100.9 mmol/L (98-107); Glucose 89 mg/dL (65-100); Potassium 4.1 mmol/L (3.6-5.0); Sodium 138 mmol/L (137-145); Total Protein 7.5 g/dL (6.3-8.2)
[2017-05-26 22:52] VITALS: BP 118/62
== END 2017-05-26 22:52 | disposition home or self-care (01) ==
LOC: ED 15:15
DX: D57.00 Hb-SS disease with crisis, unspecified (principal); M19.90 Unspecified osteoarthritis, unspecified site; J45.909 Unspecified asthma, uncomplicated; F17.200 Nicotine dependence, unspecified, uncomplicated; Z86.718 Personal history of other venous thrombosis and embolism; Z88.8 Allergy status to other drugs, medicaments and biological substances
CPT/HCPCS: 36415; 80053; 85025; 85045; 96361; 96374; 96375; 96376; 99284; J1200; J2270; J2405; J7030

== ENCOUNTER 2017-07-02 09:47 | Emergency (ER) | payer SELFPAY ==
[2017-07-02 11:40] LABS: Bacteria,Urine 1+ /HPF (Negative); Bilirubin,Urine NEG (Negative); Blood,Urine NEG (Negative); Ketones,Urine NEG (Negative); Leukocyte Esterase,Urine LG (Negative); Nitrite,Urine NEG (Negative); Protein,Urine <15 mg/dL mg/dL (Negative); Urobilinogen,Urine < 2.0 mg/dL (<2.0)
[2017-07-02] MEDS ORDERED: PERCOCET 5/325 PO PRN (13:38)
[2017-07-02] MEDS ORDERED: ZOFRAN ODT PO ONE (13:38)
--- NOTE | 2017-07-02 13:44 | Emergency Department Report ---
Chief Complaint: Extremity Injury, Lower Stated Complaint: SICKLE CELL - HPI History of Present Illness: 36F PMH sickle cell, hx of dvt p/w SOB, pleuritic CP, LE pain and swelling - ROS Review of Systems: LE swelling, + pleuritic CP - Exam Vital Signs: Vital Signs 07/02/17 09:55 Temperature 98.6 F Pulse Rate 105 H Respiratory 16 Rate Blood Pressure 142/68 [Right] O2 Sat by Pulse 99 Oximetry Physical Exam: heart tachy, lungs clear b/l MSE screening note: Focused history and physical exam performed. Due to findings the following was ordered: MSE: sickle cell crisis, uti, pe vs dvt 1- labs, ekg, cxr, LE duplex ED Disposition for MSE Condition: Stable Referrals: JANESSA DENTON MD [Primary Care Provider] - 3-5 Days
--- NOTE | 2017-07-02 14:08 | XRay Report ---
CHEST 2 VIEWS INDICATION: Chest pain. COMPARISON: 04/20/2017 FINDINGS: PA and lateral chest radiographs again demonstrate normal cardiomediastinal silhouette. No pleural effusions or CHF, though vertical right infrahilar scarring or atelectasis is new. Intact bones. CONCLUSION: New right infrahilar atelectasis or scarring; otherwise unremarkable. Thank you for the opportunity to participate in this patient's care.
--- NOTE | 2017-07-02 16:58 | Emergency Department Report ---
ED General Adult HPI - General Chief complaint: Extremity Injury, Lower Stated complaint: SICKLE CELL Time Seen by Provider: 07/02/17 16:18 Source: patient Mode of arrival: Ambulatory Limitations: No Limitations - History of Present Illness Initial comments: Patient is a 36-year-old female past medical history of sickle cell anemia who presents with leg swelling and leg pain as been going on for the last couple days. Patient states that her leg swelling is severe. She also states that her leg pain is an 8/10. Patient states that she is having her typical sickle cell symptoms. She denies any chest pain and she states that she is not short of breath. Patient had hip surgery in April and she has been placed on Lovenox daily for her patient's leg pain does not radiate anywhere where nothing makes it better or worse. Patient also denies having any fever. Severity scale (0 -10): 10 - Related Data Home Medications Medication Instructions Recorded Confirmed Last Taken ALBUTEROL Inhaler [ProAir HFA 2 puff IH QID PRN 12/29/16 07/02/17 04/04/17 Inhaler] Iron 18 mg PO QDAY 04/09/17 07/02/17 04/17/17 Previous Rx's Medication Instructions Recorded Last Taken Type Hydroxyurea [Hydrea] 500 mg PO QDAY #300 capsule 12/31/16 04/17/17 Rx Oxycodone HCl/Acetaminophen 1 each PO Q6HR PRN #15 tablet 07/02/17 Unknown Rx [Percocet 10/325 mg] Allergies Allergy/AdvReac Type Severity Reaction Status Date / Time NSAIDS (Non-Steroidal Allergy Intermediate Hives Verified 04/29/17 17:26 Anti-Inflamma ED Review of Systems ROS: Stated complaint: SICKLE CELL Other details as noted in HPI Constitutional: denies: chills, fever Eyes: denies: eye pain, eye discharge, vision change ENT: denies: ear pain, throat pain Respiratory: denies: cough, shortness of breath, wheezing Cardiovascular: denies: chest pain, palpitations Endocrine: no symptoms reported Gastrointestinal: denies: abdominal pain, nausea, diarrhea Genitourinary: denies: urgency, dysuria, discharge Musculoskeletal: myalgia. denies: back pain, joint swelling, arthralgia Skin: denies: rash, lesions Neurological: denies: headache, weakness, paresthesias Psychiatric: denies: anxiety, depression Hematological/Lymphatic: denies: easy bleeding, easy bruising ED Past Medical Hx - Past Medical History Hx Hypertension: No Hx CVA: No Hx Heart Attack/AMI: No Hx Congestive Heart Failure: No Hx Diabetes: No Hx Deep Vein Thrombosis: Yes Hx Pulmonary Embolism: No Hx GERD: No Hx Liver Disease: No Hx Renal Disease: No Hx Sickle Cell Disease: Yes Hx Arthritis: Yes (CHRONIC PAIN) Hx Headaches / Migraines: No Hx Seizures: No Hx Kidney Stones: No Hx Psychiatric Treatment: No Hx Asthma: Yes (INHALER PRN) Hx COPD: No Hx Tuberculosis: No Hx Dementia: No Hx HIV: No 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, Stomach ulcers - Surgical History Hx Coronary Stent: No Hx Open Heart Surgery: No Hx Pacemaker: No Hx Internal Defibrillator: No Hx Cholecystectomy: No Hx Appendectomy: No Hx Breast Surgery: No Additional Surgical History: c-secx7, hernia, nerve, left hip replacement - Social History Smoking Status: Current Every Day Smoker Substance Use Type: None - Medications Home Medications: Home Medications Medication Instructions Recorded Confirmed Last Taken Type ALBUTEROL Inhaler [ProAir HFA 2 puff IH QID PRN 12/29/16 07/02/17 04/04/17 History Inhaler] Hydroxyurea [Hydrea] 500 mg PO QDAY #300 capsule 12/31/16 07/02/17 04/17/17 Rx Iron 18 mg PO QDAY 04/09/17 07/02/17 04/17/17 History Oxycodone HCl/Acetaminophen 1 each PO Q6HR PRN #15 tablet 07/02/17 Unknown Rx [Percocet 10/325 mg] ED Physical Exam - General Limitations: No Limitations General appearance: alert, in no apparent distress - Head Head exam: Present: atraumatic, normocephalic - Eye Eye exam: Present: normal appearance - ENT ENT exam: Present: mucous membranes moist - Neck Neck exam: Present: normal inspection - Respiratory Respiratory exam: Present: normal lung sounds bilaterally. Absent: respiratory distress - Cardiovascular Cardiovascular Exam: Present: regular rate, normal rhythm. Absent: systolic murmur, diastolic murmur, rubs, gallop - GI/Abdominal GI/Abdominal exam: Present: soft, normal bowel sounds - Extremities Exam Extremities exam: Present: tenderness, other (bilateral leg swelling no pedal edema.) - Back Exam Back exam: Present: normal inspection - Neurological Exam Neurological exam: Present: alert, oriented X3, CN II-XII intact - Psychiatric Psychiatric exam: Present: normal affect, normal mood - Skin Skin exam: Present: warm, dry, intact, normal color. Absent: rash ED Course Vital Signs 07/02/17 07/02/17 07/02/17 09:55 17:12 19:10 Temperature 98.6 F 98.8 F Pulse Rate 105 H 91 H 89 Respiratory 16 18 18 Rate Blood Pressure 142/68 118/91 126/72 [Right] O2 Sat by Pulse 99 100 100 Oximetry ED Medical Decision Making - EKG Data -: EKG Interpreted by Me - EKG Data 07/02/17 19:06 EKG shows normal sinus rhythm normal axis deviation no ST segment elevation or T -wave inversion. - Radiology Data Radiology results: report reviewed, image reviewed Lower extremity bilateral ultrasound: shows no evidence of DVT - Medical Decision Making Chief medical diagnosis: DVT Differential diagnosis: Vaso-occlusive crisis, sickle cell anemia pain, metabolic abnormality IM Dilaudid, CBC, CMP, reticulocyte count and oral analgesic pain medication. Patient has not received blood work. He be despite being me D for 8 hours. She states that she feels better after Dilaudid and does not feel like she needs to get any blood work. She states that she's a heart sick and normally she needs to get an EJ in order to get blood. Patient has no DVT and she is able to tolerate oral pain medication. Indications shared decision making I will send the patient home she will finish up her Lovenox shots and follow up with her bias cutter. Additional verbal discharge instruction were given patient agrees with plan. Critical care attestation.: If time is entered above; I have spent that time in minutes in the direct care of this critically ill patient, excluding procedure time. ED Disposition Clinical Impression: Leg swelling, Sickle cell anemia with pain Leg pain Qualifiers: Laterality: bilateral Qualified Code(s): M79.604 - Pain in right leg Disposition: DC-01 TO HOME OR SELFCARE Is pt being admited?: No Does the pt Need Aspirin: No Condition: Stable Instructions: Sickle Cell Crisis (ED) Prescriptions: Oxycodone HCl/Acetaminophen [Percocet 10/325 mg] 1 each PO Q6HR PRN #15 tablet PRN Reason: Pain Referrals: JANESSA DENTON MD [Primary Care Provider] - 3-5 Days
[2017-07-02] MEDS ORDERED: DILAUDID IM ONE (17:12)
[2017-07-02 19:11] VITALS: BP 126/72
== END 2017-07-02 19:10 | disposition home or self-care (01) ==
LOC: ED 09:47
DX: D57.00 Hb-SS disease with crisis, unspecified (principal); M79.604 Pain in right leg; M79.89 Other specified soft tissue disorders; M19.90 Unspecified osteoarthritis, unspecified site; G89.29 Other chronic pain; J45.909 Unspecified asthma, uncomplicated; F17.200 Nicotine dependence, unspecified, uncomplicated; Z98.890 Other specified postprocedural states; Z88.8 Allergy status to other drugs, medicaments and biological substances
CPT/HCPCS: 71020; 81001; 93005; 93010; 93970; 96372; 99284; J1170; Q0162

== ENCOUNTER 2017-07-19 13:27 | Emergency (ER) | payer SELFPAY ==
[2017-07-19 14:36] LABS: Bilirubin,Urine NEG (Negative); Blood,Urine NEG (Negative); Ketones,Urine NEG (Negative); Leukocyte Esterase,Urine TR (Negative); Nitrite,Urine NEG (Negative); Protein,Urine <15 mg/dL mg/dL (Negative); RBC,Urine < 1.0 /HPF (0.0-6.0); Urobilinogen,Urine < 2.0 mg/dL (<2.0)
[2017-07-19] MEDS ORDERED: TYLENOL PO ONE (20:20)
[2017-07-20] MEDS ORDERED: REGLAN IV ONE (00:44)
[2017-07-20] MEDS ORDERED: BENADRYL IV ONE (00:44)
[2017-07-20] MEDS ORDERED: DILAUDID IV ONE ×3 (00:44→02:11)
--- NOTE | 2017-07-20 00:45 | Emergency Department Report ---
ED General Adult HPI - General Chief complaint: Sickle Cell Crisis Stated complaint: SICKLE CRISIS Time Seen by Provider: 07/20/17 00:27 Source: patient, RN notes reviewed, old records reviewed Mode of arrival: Ambulatory Limitations: No Limitations - History of Present Illness Initial comments: This is a 36-year-old female who was previously unknown to this provider. Patient has a past medical history of avascular necrosis, sickle cell anemia, chronic pain, presenting to the ER with her complaint of typical sickle cell crisis. She complains of pain in her bilateral upper and lower extremities, back, and head. The pain is sharp, is "all over." The pain typically decreases with hydromorphone. Patient additionally states that her headache has been present for 1 month, it is throbbing, global, not sudden or thunderclap in nature, and did not reach maximal intensity within an hour. She endorses dysuria, and doesn't to mild dry cough, but denies chest pain and denies abdominal pain. She further indicates that she is not . Patient reports not having had a splenectomy or cholecystectomy. -: Gradual Location: head, back, left, right, upper extremity, lower extremity Severity scale (0 -10): 5 Quality: aching Consistency: constant Improves with: medication, rest Worsens with: movement Associated Symptoms: cough, loss of appetite, weakness - Related Data Previous Rx's Medication Instructions Recorded Last Taken Type ALBUTEROL Inhaler [ProAir HFA 2 puff IH QID PRN #1 inha 07/20/17 Unknown Rx Inhaler] Hydroxyurea [Hydrea] 500 mg PO QDAY #300 capsule 07/20/17 Unknown Rx Iron 18 mg PO QDAY #30 tablet 07/20/17 Unknown Rx Oxycodone HCl/Acetaminophen 1 each PO Q6HR PRN #15 tablet 07/20/17 Unknown Rx [Percocet 10/325 mg] Allergies Allergy/AdvReac Type Severity Reaction Status Date / Time NSAIDS (Non-Steroidal Allergy Intermediate Hives Verified 07/19/17 14:04 Anti-Inflamma ED Review of Systems ROS: Stated complaint: SICKLE CRISIS Other details as noted in HPI Constitutional: malaise, weakness ENT: ear pain, congestion. denies: epistaxis Respiratory: denies: cough Cardiovascular: denies: chest pain Gastrointestinal: denies: abdominal pain Genitourinary: dysuria Musculoskeletal: arthralgia, myalgia Skin: denies: lesions Neurological: weakness ED Past Medical Hx - Past Medical History Previous Medical History?: Yes Hx Hypertension: No Hx CVA: No Hx Heart Attack/AMI: No Hx Congestive Heart Failure: No Hx Diabetes: No Hx Deep Vein Thrombosis: Yes Hx Pulmonary Embolism: No Hx GERD: No Hx Liver Disease: No Hx Renal Disease: No Hx Sickle Cell Disease: Yes Hx Arthritis: Yes (CHRONIC PAIN) Hx Headaches / Migraines: No Hx Seizures: No Hx Kidney Stones: No Hx Psychiatric Treatment: No Hx Asthma: Yes (INHALER PRN) Hx COPD: No Hx Tuberculosis: No Hx Dementia: No Hx HIV: No 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, Stomach ulcers - Surgical History Past Surgical History?: Yes Hx Coronary Stent: No Hx Open Heart Surgery: No Hx Pacemaker: No Hx Internal Defibrillator: No Hx Cholecystectomy: No Hx Appendectomy: No Hx Breast Surgery: No Additional Surgical History: c-secx7, hernia, nerve, left hip replacement - Social History Smoking Status: Current Every Day Smoker Substance Use Type: None - Medications Home Medications: Home Medications Medication Instructions Recorded Confirmed Last Taken Type ALBUTEROL Inhaler [ProAir HFA 2 puff IH QID PRN #1 inha 07/20/17 Unknown Rx Inhaler] Hydroxyurea [Hydrea] 500 mg PO QDAY #300 capsule 07/20/17 Unknown Rx Iron 18 mg PO QDAY #30 tablet 07/20/17 Unknown Rx Oxycodone HCl/Acetaminophen 1 each PO Q6HR PRN #15 tablet 07/20/17 Unknown Rx [Percocet 10/325 mg] ED Physical Exam - General Limitations: No Limitations General appearance: alert, in no apparent distress - Head Head exam: Present: atraumatic, normocephalic - Eye Eye exam: Present: normal appearance, PERRL, EOMI, other (visual acuity intact to finger counting, color perception, reading at a close distance). Absent: nystagmus - ENT ENT exam: Present: normal exam, normal orophraynx, mucous membranes moist, TM's normal bilaterally, normal external ear exam, other (there is no mastoid tenderness. The neck is supple. There are no meningeal signs) - Neck Neck exam: Present: normal inspection, full ROM. Absent: tenderness, meningismus - Respiratory Respiratory exam: Present: normal lung sounds bilaterally. Absent: respiratory distress, wheezes, rales, rhonchi, stridor, chest wall tenderness, accessory muscle use, decreased breath sounds, prolonged expiratory - Cardiovascular Cardiovascular Exam: Present: regular rate, normal rhythm, normal heart sounds. Absent: bradycardia, tachycardia, irregular rhythm, systolic murmur, diastolic murmur, rubs, gallop - GI/Abdominal GI/Abdominal exam: Present: soft, normal bowel sounds. Absent: distended, tenderness, guarding, rebound, rigid, pulsatile mass - Extremities Exam Extremities exam: Present: normal inspection, full ROM, normal capillary refill , other (lung bony tenderness noted in the upper and lower extremities, the compartments are soft, there is no palpable cord, 2+ pulses noted in the bilateral upper and lower extremities, the pelvis is stable.). Absent: calf tenderness - Back Exam Back exam: Present: normal inspection, paraspinal tenderness. Absent: vertebral tenderness - Neurological Exam Neurological exam: Present: alert, oriented X3, normal gait, other (Extraocular movements intact. Tongue midline. No facial droop. Facial sensation intact to light touch in the V1, V2, V3 distribution bilaterally. 5 and 5 strength in 4 extremities.. Sensation is intact to light touch in 4 extremities.). Absent : motor sensory deficit - Psychiatric Psychiatric exam: Present: anxious - Skin Skin exam: Present: warm, dry, intact, normal color. Absent: rash ED Course Vital Signs 07/19/17 07/19/17 07/20/17 14:04 23:45 03:20 Temperature 99.1 F 98.6 F Pulse Rate 101 H 86 82 Respiratory 18 10 L 12 Rate Blood Pressure 110/68 Blood Pressure 116/70 117/53 [Left] O2 Sat by Pulse 100 98 99 Oximetry - EJ/Peripheral Line Neck R Time Out Performed: Yes Indications: nurses unable to establis Skin Cleansed in Sterile Fashion: Yes Size: 20 Dressing Placed: Tegaderm Patient Tolerated Procedure: well ED Medical Decision Making - Lab Data Result diagrams: 07/20/17 01:34 Vital Signs 07/19/17 07/19/17 14:04 23:45 Temperature 99.1 F 98.6 F Pulse Rate 101 H 86 Respiratory 18 10 L Rate Blood Pressure 110/68 Blood Pressure 116/70 [Left] O2 Sat by Pulse 100 98 Oximetry Lab Results 1007/20/17 07/20/17 Range/Units Unknown 01:00 01:34 WBC TNR 11.9 H RBC TNR 3.97 Hgb TNR 9.8 L Hct TNR 30.3 MCV TNR 76 L MCH TNR 25 L MCHC TNR 32 RDW TNR 18.8 H Plt Count TNR 289 Lymph % (Auto) TNR 30.8 [place] % (Auto) TNR 4.8 Eos % (Auto) TNR 1.9 Baso % (Auto) TNR 1.1 Lymph # TNR 3.7 [place] # TNR 0.6 Eos # TNR 0.2 Baso # TNR 0.1 Add Manual Diff TNR Seg Neutrophils % TNR 61.4 Seg Neutrophils # TNR 7.3 Percent Retic TNR 1.48 Immature Retic Fraction TNR Urine Color Straw (Yellow) Urine Turbidity Clear (Clear) Urine pH 7.0 (5.0-7.0) Ur Specific [place] 1.003 (1.003-1.030) Urine Protein <15 mg/dl (Negative) mg/dL Urine Glucose (UA) Neg (Negative) mg/dL Urine Ketones Neg (Negative) mg/dL Urine Blood Neg (Negative) Urine Nitrite Neg (Negative) Urine Bilirubin Neg (Negative) Urine Urobilinogen < 2.0 (<2.0) mg/dL Ur Leukocyte Esterase Tr (Negative) Urine WBC (Auto) 4.0 (0.0-6.0) /HPF Urine RBC (Auto) < 1.0 (0.0-6.0) /HPF U Epithel Cells (Auto) 2.0 (0-13.0) /HPF - Radiology Data Radiology results: image reviewed interpreted by me: X-ray of the chest is negative for acute disease - Medical Decision Making Differential diagnosis: Viral syndrome, sickle cell crisis, urinary tract infection Assessment and plan: 36-year-old female with probable sickle cell crisis. She is afebrile, with reassuring vital signs, walks with a steady gait, and her tachycardia has resolved. The patient has a nonspecific headache present for 1 month, has a GCS of 15, with an NIH score of 0, is clinically sober and walks with a steady gait. Patient was treated aggressively for her pain, reassessed multiple times, and endorsed improvement in her symptoms. She will be discharged at this time with instructions to follow up with outpatient hematology, return precautions were reviewed, patient to be discharged with pain medication and nausea medication. Critical care attestation.: If time is entered above; I have spent that time in minutes in the direct care of this critically ill patient, excluding procedure time. ED Disposition Clinical Impression: Sickle cell crisis Disposition: DC-01 TO HOME OR SELFCARE Is pt being admited?: No Does the pt Need Aspirin: No Condition: Stable Instructions: Sickle Cell Crisis (ED) Additional Instructions: Take the medications as directed. Follow up with the primary care or supervisor wall mirror department within the next month. Return to the ER right away with few pain, worsening pain, migration of pain, fevers, chills, lethargy, irritability, projectile vomiting, change in mental status, inability to tolerate liquid feeds , confusion, loss of consciousness. Prescriptions: ALBUTEROL Inhaler [ProAir HFA Inhaler] 2 puff IH QID PRN #1 inha PRN Reason: Shortness Of Breath Hydroxyurea [Hydrea] 500 mg PO QDAY #300 capsule Iron 18 mg PO QDAY #30 tablet Oxycodone HCl/Acetaminophen [Percocet 10/325 mg] 1 each PO Q6HR PRN #15 tablet PRN Reason: Pain Referrals: PRIMARY CARE, [Primary Care Provider] - 3-5 Days URI MURCIA DO [Staff Physician] - 3-5 Days SANTI FULLER MD [Staff Physician] - 3-5 Days
[2017-07-20 01:21] LABS: Hematocrit TNR % (30.3-42.9); Hemoglobin TNR gm/dl (10.1-14.3); Mean Corpuscular HGB Conc TNR % (30-34); Mean Corpuscular Hemoglobin TNR pg (28-32); Mean Corpuscular Volume TNR fl (79-97); Red Blood Count TNR M/mm3 (3.65-5.03); White Blood Count TNR K/mm3 (4.5-11.0)
[2017-07-20 01:22] LABS: Basophils % (Auto) TNR % (0.0-1.8); Eosinophils % (Auto) TNR % (0.0-4.3); Red Cell Distribution Width TNR % (13.2-15.2)
[2017-07-20 01:23] LABS: Diff Status TNR; Immature Retic Fraction TNR; Mean Platelet Volume TNR fl (6-12); Platelet Count TNR K/mm3 (140-440); Reticulocyte % TNR % (0.78-2.58)
[2017-07-20 02:02] LABS: Basophils % (Auto) 1.1 % (0.0-1.8); Eosinophils % (Auto) 1.9 % (0.0-4.3); Hematocrit 30.3 % (30.3-42.9); Hemoglobin 9.8 gm/dl (10.1-14.3); Mean Corpuscular HGB Conc 32 % (30-34); Mean Corpuscular Volume 76 fl (79-97); Platelet Count 289 K/mm3 (140-440); Red Blood Count 3.97 M/mm3 (3.65-5.03); Red Cell Distribution Width 18.8 % (13.2-15.2); Reticulocyte % 1.48 % (0.78-2.58); White Blood Count 11.9 K/mm3 (4.5-11.0)
[2017-07-20 02:03] LABS: Mean Corpuscular Hemoglobin 25 pg (28-32)
[2017-07-20] MEDS ORDERED: BENADRYL PO ONE (02:27)
[2017-07-20 04:03] VITALS: BP 117/53
--- NOTE | 2017-07-20 07:33 | XRay Report ---
PORTABLE CHEST: SS crisis. An AP portable view of the chest demonstrates a normal cardiac contour considering the limits of this technique. The lungs are clear with no evidence of infiltrate, fluid or failure. IMPRESSION: Normal portable chest.
== END 2017-07-20 03:30 | disposition home or self-care (01) ==
LOC: ED 13:27
DX: D57.00 Hb-SS disease with crisis, unspecified (principal); F17.200 Nicotine dependence, unspecified, uncomplicated
CPT/HCPCS: 36415; 36569; 71010; 81001; 85025; 85045; 96374; 96375; 96376; 99284; J1170; J1200; J2765

== ENCOUNTER 2017-08-16 21:19 | Emergency (ER) | payer SELFPAY ==
[2017-08-16] MEDS ORDERED: D5NS 0.2% 1,000 ML IV SCH (23:00)
[2017-08-17] MEDS ORDERED: TYLENOL PO ONE (00:35)
[2017-08-17] MEDS ORDERED: TYLENOL ONE (00:40)
[2017-08-17 03:32] LABS: Basophils % (Auto) 1.6 % (0.0-1.8); Eosinophils % (Auto) 2.7 % (0.0-4.3); Hematocrit 31.6 % (30.3-42.9); Mean Corpuscular HGB Conc 32 % (30-34); Mean Corpuscular Volume 76 fl (79-97); Platelet Count 243 K/mm3 (140-440); Red Blood Count 4.15 M/mm3 (3.65-5.03); Red Cell Distribution Width 19.1 % (13.2-15.2); White Blood Count 9.2 K/mm3 (4.5-11.0)
[2017-08-17 03:38] LABS: Mean Corpuscular Hemoglobin 24 pg (28-32)
--- NOTE | 2017-08-17 04:30 | Emergency Department Report ---
ED General Adult HPI - General Chief complaint: Sickle Cell Crisis Stated complaint: SICKLE CELL PAIN Time Seen by Provider: 08/17/17 04:25 Source: patient Mode of arrival: Ambulatory Limitations: No Limitations - History of Present Illness Initial comments: 36 YO FEMALE PT C/O GENERALIZED BODY PAIN FROM SICKLE CELL. DENIES FEVER,CHILLS , CHEST PAIN, SOB. PT SLEEPING COMFORTABLY WHEN I ENTERED THE ROOM -: days(s) (3-4) Location: upper extremity, lower extremity Radiation: non-radiation Severity scale (0 -10): 10 Quality: aching Consistency: constant Improves with: none Worsens with: movement Associated Symptoms: denies other symptoms - Related Data Previous Rx's Medication Instructions Recorded Last Taken Type ALBUTEROL Inhaler [ProAir HFA 2 puff IH QID PRN #1 inha 07/20/17 Unknown Rx Inhaler] Hydroxyurea [Hydrea] 500 mg PO QDAY #300 capsule 07/20/17 Unknown Rx Iron 18 mg PO QDAY #30 tablet 07/20/17 Unknown Rx Oxycodone HCl/Acetaminophen 1 each PO Q6HR PRN #15 tablet 08/17/17 Unknown Rx [Percocet 10/325 mg] Allergies Allergy/AdvReac Type Severity Reaction Status Date / Time NSAIDS (Non-Steroidal Allergy Intermediate Hives Verified 07/19/17 14:04 Anti-Inflamma ED Review of Systems ROS: Stated complaint: SICKLE CELL PAIN Other details as noted in HPI Constitutional: denies: chills, fever Eyes: denies: eye pain, eye discharge, vision change ENT: denies: ear pain, throat pain Respiratory: denies: cough, shortness of breath, wheezing Cardiovascular: denies: chest pain, palpitations Endocrine: no symptoms reported Gastrointestinal: denies: abdominal pain, nausea, diarrhea Genitourinary: denies: urgency, dysuria, discharge Musculoskeletal: back pain, arthralgia, myalgia, other Skin: denies: rash, lesions Neurological: denies: headache, weakness, paresthesias Psychiatric: denies: anxiety, depression Hematological/Lymphatic: denies: easy bleeding, easy bruising ED Past Medical Hx - Past Medical History Hx Hypertension: No Hx CVA: No Hx Heart Attack/AMI: No Hx Congestive Heart Failure: No Hx Diabetes: No Hx Deep Vein Thrombosis: Yes Hx Pulmonary Embolism: No Hx GERD: No Hx Liver Disease: No Hx Renal Disease: No Hx Sickle Cell Disease: Yes Hx Arthritis: Yes (CHRONIC PAIN) Hx Headaches / Migraines: No Hx Seizures: No Hx Kidney Stones: No Hx Psychiatric Treatment: No Hx Asthma: Yes (INHALER PRN) Hx COPD: No Hx Tuberculosis: No Hx Dementia: No Hx HIV: No 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, Stomach ulcers - Surgical History Hx Coronary Stent: No Hx Open Heart Surgery: No Hx Pacemaker: No Hx Internal Defibrillator: No Hx Cholecystectomy: No Hx Appendectomy: No Hx Breast Surgery: No Additional Surgical History: c-secx7, hernia, nerve, left hip replacement - Social History Smoking Status: Current Some Day Smoker Substance Use Type: None - Medications Home Medications: Home Medications Medication Instructions Recorded Confirmed Last Taken Type ALBUTEROL Inhaler [ProAir HFA 2 puff IH QID PRN #1 inha 07/20/17 Unknown Rx Inhaler] Hydroxyurea [Hydrea] 500 mg PO QDAY #300 capsule 07/20/17 Unknown Rx Iron 18 mg PO QDAY #30 tablet 07/20/17 Unknown Rx Oxycodone HCl/Acetaminophen 1 each PO Q6HR PRN #15 tablet 08/17/17 Unknown Rx [Percocet 10/325 mg] ED Physical Exam - General Limitations: No Limitations General appearance: alert, in no apparent distress - Head Head exam: Present: atraumatic, normocephalic - Eye Eye exam: Present: normal appearance - ENT ENT exam: Present: mucous membranes moist - Neck Neck exam: Present: normal inspection, full ROM - Respiratory Respiratory exam: Present: normal lung sounds bilaterally. Absent: respiratory distress - Cardiovascular Cardiovascular Exam: Present: regular rate, normal rhythm. Absent: systolic murmur, diastolic murmur, rubs, gallop - GI/Abdominal GI/Abdominal exam: Present: soft, normal bowel sounds - Extremities Exam Extremities exam: Present: normal inspection - Back Exam Back exam: Present: normal inspection - Neurological Exam Neurological exam: Present: alert, oriented X3 - Psychiatric Psychiatric exam: Present: normal affect, normal mood - Skin Skin exam: Present: warm, dry, intact, normal color. Absent: rash ED Course Vital Signs 08/16/17 08/17/17 08/17/17 22:06 00:45 02:28 Temperature 97.7 F 98.6 F Pulse Rate 91 H 105 H Respiratory 16 18 18 Rate Blood Pressure 128/68 120/52 Blood Pressure [Right] O2 Sat by Pulse 95 99 Oximetry 08/17/17 08/17/17 08/17/17 03:05 03:11 03:13 Temperature 98.8 F Pulse Rate 90 96 H 96 H Respiratory 13 19 19 Rate Blood Pressure Blood Pressure 126/83 [Right] O2 Sat by Pulse 100 100 Oximetry 08/17/17 08/17/17 08/17/17 03:16 03:30 03:46 Temperature Pulse Rate 95 H 88 86 Respiratory 23 18 15 Rate Blood Pressure 128/57 120/59 120/59 Blood Pressure [Right] O2 Sat by Pulse 98 97 96 Oximetry 08/17/17 04:00 Temperature Pulse Rate 80 Respiratory 16 Rate Blood Pressure 111/50 Blood Pressure [Right] O2 Sat by Pulse 96 Oximetry ED Medical Decision Making - Lab Data Result diagrams: 08/17/17 03:00 Critical care attestation.: If time is entered above; I have spent that time in minutes in the direct care of this critically ill patient, excluding procedure time. ED Disposition Clinical Impression: Sickle cell anemia with crisis Disposition: DC-01 TO HOME OR SELFCARE Is pt being admited?: No Does the pt Need Aspirin: No Condition: Stable Instructions: Sickle Cell Crisis (ED) Prescriptions: Oxycodone HCl/Acetaminophen [Percocet 10/325 mg] 1 each PO Q6HR PRN #15 tablet PRN Reason: Pain Referrals: PRIMARY CARE, [Primary Care Provider] - 3-5 Days Time of Disposition: 05:37
[2017-08-17] MEDS ORDERED: NACL 0.9% 1000 ML 1,000 ML IV ONE (04:56)
[2017-08-17] MEDS ORDERED: ZOFRAN IV ONE (04:56)
[2017-08-17] MEDS ORDERED: BENADRYL IV ONE (04:56)
[2017-08-17] MEDS ORDERED: DILAUDID IV ONE ×2 (04:56→06:16)
[2017-08-17 07:00] VITALS: BP 104/64
== END 2017-08-17 06:59 | disposition home or self-care (01) ==
LOC: ED 21:19
DX: D57.00 Hb-SS disease with crisis, unspecified (principal); F17.210 Nicotine dependence, cigarettes, uncomplicated; M19.90 Unspecified osteoarthritis, unspecified site; Z88.8 Allergy status to other drugs, medicaments and biological substances
CPT/HCPCS: 36415; 84703; 85025; 85045; 96361; 96374; 96375; 96376; 99284; J1170; J1200; J2405; J7030

== ENCOUNTER 2017-09-19 15:11 | Emergency (ER) | payer OTHER ==
[2017-09-19] MEDS ORDERED: ZOFRAN IV ONE (17:16)
[2017-09-19] MEDS ORDERED: NACL 0.9% 1000 ML 1,000 ML IV ONE (17:16)
[2017-09-19] MEDS ORDERED: PEPCID IV ONE (17:17)
[2017-09-19] MEDS ORDERED: MORPHINE IV ONE (17:17)
[2017-09-19] MEDS ORDERED: BENTYL IM ONE (17:17)
--- NOTE | 2017-09-19 17:20 | Emergency Department Report ---
Chief Complaint: Sickle Cell Crisis Stated Complaint: SICKLE CELL/ULCER PAIN Time Seen by Provider: 09/19/17 17:10 - HPI History of Present Illness: Patient is a 36-year-old [place] female who is presenting with 2 complaints. First complaint is that she has had nausea vomiting diarrhea for the past 3 days. Patient has a history of ulcers as well and has epigastric pain. Patient states there is no [id number]-aisabn-tfusiikgl emesis. Patient has had no syncope, fever cough. Patient states that she's had more diarrhea than she has nausea vomiting this time. Patient also states that since she has been having nausea without diarrhea she is now secondly having a sickle cell crisis. Patient states she has sickle cell SC. Patient states she has pain 8 out of 10 in her arms and legs. Mostly in the joints. This is something common for the patient. Patient will be given IV fluids IV pain meds nausea medicine and we will check some basic labs. - Exam Vital Signs: Vital Signs 09/19/17 15:17 Temperature 98.6 F Pulse Rate 106 H Respiratory 20 Rate Blood Pressure 122/74 O2 Sat by Pulse 99 Oximetry MSE screening note: Focused history and physical exam performed. Due to findings the following was ordered: ED Disposition for MSE Condition: Stable
[2017-09-19 17:30] LABS: Bacteria,Urine 1+ /HPF (Negative); Bilirubin,Urine NEG (Negative); Blood,Urine NEG (Negative); Ketones,Urine NEG (Negative); Leukocyte Esterase,Urine LG (Negative); Nitrite,Urine NEG (Negative); Protein,Urine <15 mg/dL mg/dL (Negative); Urobilinogen,Urine < 2.0 mg/dL (<2.0)
[2017-09-19 17:44] LABS: Basophils % (Auto) 0.9 % (0.0-1.8); Eosinophils % (Auto) 1.2 % (0.0-4.3); Hemoglobin 9.5 gm/dl (10.1-14.3); Mean Corpuscular HGB Conc 32 % (30-34); Mean Corpuscular Volume 75 fl (79-97); Platelet Count 285 K/mm3 (140-440); Red Blood Count 4.02 M/mm3 (3.65-5.03); Red Cell Distribution Width 19.5 % (13.2-15.2); White Blood Count 9.8 K/mm3 (4.5-11.0)
[2017-09-19 17:52] LABS: Mean Corpuscular Hemoglobin 24 pg (28-32)
[2017-09-19] MEDS ORDERED: BENADRYL IV ONE (18:02)
[2017-09-19 18:03] LABS: Alanine Aminotransferase 9 units/L (7-56); Albumin/Globulin Ratio 1.3 %; Alkaline Phosphatase 81 units/L (35-129); Anion Gap 18 mmol/L; BUN/Creatinine Ratio 17; Blood Urea Nitrogen 10 mg/dL (7-17); Calcium 9.1 mg/dL (8.4-10.2); Carbon Dioxide 25 mmol/L (22-30); Chloride 102.3 mmol/L (98-107); Glucose 96 mg/dL (65-100); Potassium 3.9 mmol/L (3.6-5.0); Sodium 141 mmol/L (137-145)
--- NOTE | 2017-09-19 18:57 | Emergency Department Report ---
ED Abdominal Pain HPI - General Chief Complaint: Sickle Cell Crisis Stated Complaint: SICKLE CELL/ULCER PAIN Time Seen by Provider: 09/19/17 17:10 Source: patient Mode of arrival: Ambulatory Limitations: No Limitations - History of Present Illness Initial Comments: 36-year-old female past medical history obesity, sickle cell disease presents with complaint of epigastric pain and nausea with body aches. Possible increased urinary frequency. Also complains of diarrhea for 2 days. Patient is awake alert and oriented 3 not in acute distress. Fully lucid awake alert and oriented. Patient has been medically screened by Dr. Murray. At the time that I saw patient patient is eating food states she feels significantly better and requesting to be discharged. Patient states she does not have any hydroxyurea Pepcid or pain medicine for her chronic sickle cell disease. MD Complaint: abdominal pain Onset/Timin -: days(s) Severity: mild Severity scale (0 -10): 10 Consistency: now resolved Improves With: nothing - Related Data Previous Rx's Medication Instructions Recorded Last Taken Type ALBUTEROL Inhaler [ProAir HFA 2 puff IH QID PRN #1 inha 07/20/17 Unknown Rx Inhaler] Hydroxyurea [Hydrea] 500 mg PO QDAY #300 capsule 07/20/17 Unknown Rx Iron 18 mg PO QDAY #30 tablet 07/20/17 Unknown Rx Oxycodone HCl/Acetaminophen 1 each PO Q6HR PRN #15 tablet 08/17/17 Unknown Rx [Percocet 10/325 mg] Hydroxyurea [Hydrea] 500 mg PO DAILY #30 cap 09/19/17 Unknown Rx Nitrofurantoin Monohyd/M-Cryst 100 mg PO BID #14 capsule 09/19/17 Unknown Rx [Macrobid 100 mg Capsule] Ondansetron [Zofran Odt] 4 mg PO Q8HR PRN #20 tab.rapdis 09/19/17 Unknown Rx Oxycodone HCl/Acetaminophen 1 each PO Q6HR PRN #12 tablet 09/19/17 Unknown Rx [Percocet 10/325 mg] Allergies Allergy/AdvReac Type Severity Reaction Status Date / Time NSAIDS (Non-Steroidal Allergy Intermediate Hives Verified 07/19/17 14:04 Anti-Inflamma ED Review of Systems ROS: Stated complaint: SICKLE CELL/ULCER PAIN Other details as noted in HPI Constitutional: denies: chills, fever Eyes: denies: eye pain, eye discharge, vision change ENT: denies: ear pain, throat pain Respiratory: denies: cough, shortness of breath, wheezing Cardiovascular: denies: chest pain, palpitations Endocrine: no symptoms reported Gastrointestinal: nausea, diarrhea. denies: abdominal pain Genitourinary: denies: urgency, dysuria, discharge Musculoskeletal: denies: back pain, joint swelling, arthralgia Skin: denies: rash, lesions Neurological: denies: headache, weakness, paresthesias Psychiatric: denies: anxiety, depression Hematological/Lymphatic: denies: easy bleeding, easy bruising ED Past Medical Hx - Past Medical History Hx Hypertension: No Hx CVA: No Hx Heart Attack/AMI: No Hx Congestive Heart Failure: No Hx Diabetes: No Hx Deep Vein Thrombosis: Yes Hx Pulmonary Embolism: No Hx GERD: No Hx Liver Disease: No Hx Renal Disease: No Hx Sickle Cell Disease: Yes Hx Arthritis: Yes (CHRONIC PAIN) Hx Headaches / Migraines: No Hx Seizures: No Hx Kidney Stones: No Hx Psychiatric Treatment: No Hx Asthma: Yes (INHALER PRN) Hx COPD: No Hx Tuberculosis: No Hx Dementia: No Hx HIV: No 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, Stomach ulcers - Surgical History Hx Coronary Stent: No Hx Open Heart Surgery: No Hx Pacemaker: No Hx Internal Defibrillator: No Hx Cholecystectomy: No Hx Appendectomy: No Hx Breast Surgery: No Additional Surgical History: c-secx7, hernia, nerve, left hip replacement - Social History Smoking Status: Current Every Day Smoker Substance Use Type: None - Medications Home Medications: Home Medications Medication Instructions Recorded Confirmed Last Taken Type ALBUTEROL Inhaler [ProAir HFA 2 puff IH QID PRN #1 inha 07/20/17 Unknown Rx Inhaler] Hydroxyurea [Hydrea] 500 mg PO QDAY #300 capsule 07/20/17 Unknown Rx Iron 18 mg PO QDAY #30 tablet 07/20/17 Unknown Rx Oxycodone HCl/Acetaminophen 1 each PO Q6HR PRN #15 tablet 08/17/17 Unknown Rx [Percocet 10/325 mg] Hydroxyurea [Hydrea] 500 mg PO DAILY #30 cap 09/19/17 Unknown Rx Nitrofurantoin Monohyd/M-Cryst 100 mg PO BID #14 capsule 09/19/17 Unknown Rx [Macrobid 100 mg Capsule] Ondansetron [Zofran Odt] 4 mg PO Q8HR PRN #20 tab.rapdis 09/19/17 Unknown Rx Oxycodone HCl/Acetaminophen 1 each PO Q6HR PRN #12 tablet 09/19/17 Unknown Rx [Percocet 10/325 mg] ED Physical Exam - General Limitations: No Limitations General appearance: alert, in no apparent distress - Head Head exam: Present: atraumatic, normocephalic - Eye Eye exam: Present: normal appearance, PERRL, EOMI - ENT ENT exam: Present: mucous membranes moist - Neck Neck exam: Present: normal inspection - Respiratory Respiratory exam: Present: normal lung sounds bilaterally. Absent: respiratory distress - Cardiovascular Cardiovascular Exam: Present: regular rate, normal rhythm. Absent: systolic murmur, diastolic murmur, rubs, gallop - GI/Abdominal GI/Abdominal exam: Present: soft, normal bowel sounds - Extremities Exam Extremities exam: Present: normal inspection - Back Exam Back exam: Present: normal inspection, other (there is no clinical CVA tenderness on exam) - Neurological Exam Neurological exam: Present: alert, oriented X3, CN II-XII intact, normal gait - Psychiatric Psychiatric exam: Present: normal affect, normal mood - Skin Skin exam: Present: warm, dry, intact, normal color. Absent: rash ED Course Vital Signs 09/19/17 15:17 Temperature 98.6 F Pulse Rate 106 H Respiratory 20 Rate Blood Pressure 122/74 O2 Sat by Pulse 99 Oximetry ED Medical Decision Making - Lab Data Result diagrams: 09/19/17 17:25 09/19/17 17:25 - Medical Decision Making A/P: Nausea and vomiting, gastroenteritis, asymptomatic bacteriuria, medication refill 1-treat patient empirically with Macrobid, patient has no flank tenderness no clinical signs of pyelonephritis 2-labs reviewed with Dr. Murray, unremarkable 3-patient now tolerating by mouth fluids and food without difficulty 4- Zofran when necessary, Pepcid when necessary, refill on hydroxyurea and Pepcid 5-we'll refer patient to primary care for follow-up Critical care attestation.: If time is entered above; I have spent that time in minutes in the direct care of this critically ill patient, excluding procedure time. ED Disposition Clinical Impression: Gastroenteritis, Medication refill, Asymptomatic bacteriuria Disposition: DC TO HOME OR SELFCARE Is pt being admited?: No Does the pt Need Aspirin: No Condition: Stable Instructions: Gastroenteritis (ED), Urinary Tract Infection in Women (ED) Prescriptions: Hydroxyurea [Hydrea] 500 mg PO DAILY #30 cap Nitrofurantoin Monohyd/M-Cryst [Macrobid 100 mg Capsule] 100 mg PO BID #14 capsule Ondansetron [Zofran Odt] 4 mg PO Q8HR PRN #20 tab.rapdis PRN Reason: Nausea Oxycodone HCl/Acetaminophen [Percocet 10/325 mg] 1 each PO Q6HR PRN #12 tablet PRN Reason: Pain Referrals: [facility] [Provider Group] - 3-5 Days [facility] [Outside] - 3-5 Days Forms: Accompanied Note, Work/School Release Form(ED) Time of Disposition: 19:01
[2017-09-19 19:19] VITALS: BP 114/60
== END 2017-09-19 19:18 | disposition home or self-care (01) ==
LOC: ED 15:11
DX: K52.9 Noninfective gastroenteritis and colitis, unspecified (principal); R82.71 Bacteriuria; M19.90 Unspecified osteoarthritis, unspecified site; F17.200 Nicotine dependence, unspecified, uncomplicated; Z86.718 Personal history of other venous thrombosis and embolism; Z88.8 Allergy status to other drugs, medicaments and biological substances
CPT/HCPCS: 36415; 80053; 81001; 83690; 85025; 96361; 96372; 96374; 96375; 99283; J0500; J1200; J2270; J2405; J7030

== ENCOUNTER 2017-10-18 10:26 | Emergency (ER) | payer SELFPAY ==
[2017-10-18 11:04] VITALS: BP 95/47
[2017-10-18] MEDS ORDERED: D5NS 0.2% 1,000 ML IV SCH (12:00)
== END 2017-10-18 23:00 | disposition left against medical advice (07) ==
LOC: ED 10:26
DX: D57.00 Hb-SS disease with crisis, unspecified (principal); Z53.21 Procedure and treatment not carried out due to patient leaving prior to being seen by health care provider

== ENCOUNTER 2017-12-08 17:11 | Emergency (ER) | payer MEDICAID ==
[2017-12-08] MEDS ORDERED: ZOFRAN IV ONE (18:37)
[2017-12-08] MEDS ORDERED: DILAUDID IV ONE ×2 (18:37→20:22)
--- NOTE | 2017-12-08 18:42 | Emergency Department Report ---
HPI - General Chief Complaint: Sickle Cell Crisis Time Seen by Provider: 12/08/17 18:30 - HPI HPI: Room 8 The patient is a 36-year-old female presenting with a chief complaint of sickle cell pain crisis. The patient states for the past week she has had intermittent aching bilateral lower extremities, bilateral upper extremities and chest consistent with her sickle cell pain crises. Patient states she notices some wheezing along with ice which happens whenever she begins to have her crises. Patient denies fever or shortness of breath. The patient missed his bilateral lower extremity edema. Patient gives her pain a score of 10/10. 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, Stomach ulcers - Surgical History Additional Surgical History: c-secx7, hernia, nerve, left hip replacement - Family History Family history: no significant - Social History Smoking Status: Former Smoker (none 2 months) Substance Use Type: None (denies illicit drug use) - Medications Home Medications: Home Medications Medication Instructions Recorded Confirmed Last Taken Type ALBUTEROL Inhaler [ProAir HFA 2 puff IH QID PRN #1 inha 07/20/17 Unknown Rx Inhaler] Hydroxyurea [Hydrea] 500 mg PO QDAY #300 capsule 07/20/17 Unknown Rx Iron 18 mg PO QDAY #30 tablet 07/20/17 Unknown Rx Oxycodone HCl/Acetaminophen 1 each PO Q6HR PRN #15 tablet 08/17/17 Unknown Rx [Percocet 10/325 mg] Famotidine [Pepcid] 20 mg PO BID PRN #30 tablet 09/19/17 Unknown Rx Hydroxyurea [Hydrea] 500 mg PO DAILY #30 cap 09/19/17 Unknown Rx Nitrofurantoin Monohyd/M-Cryst 100 mg PO BID #14 capsule 09/19/17 Unknown Rx [Macrobid 100 mg Capsule] Ondansetron [Zofran Odt] 4 mg PO Q8HR PRN #20 tab.rapdis 09/19/17 Unknown Rx Oxycodone HCl/Acetaminophen 1 each PO Q6HR PRN #12 tablet 09/19/17 Unknown Rx [Percocet 10/325 mg] HYDROcodone/APAP 5-325 [[place] 1 - 2 each PO Q6HR PRN #14 tablet 12/08/17 Unknown Rx 5/325] ED Review of Systems ROS: Stated complaint: SICKLE CELL Other details as noted in HPI Constitutional: denies: fever Respiratory: denies: shortness of breath Cardiovascular: chest pain Musculoskeletal: myalgia Physical Exam - Physical Exam Vital Signs: Vital Signs 12/08/17 17:22 Temperature 99 F Pulse Rate 103 H Respiratory 18 Rate Blood Pressure 107/61 O2 Sat by Pulse 99 Oximetry Physical Exam: GENERAL: The patient is well-developed well-nourished female lying on stretcher not appear to be in acute distress. [] HEENT: Normocephalic. Atraumatic. Extraocular motions are intact. Patient has moist mucous membranes. NECK: Supple. Trachea midline CHEST/LUNGS: Clear to auscultation. There is no respiratory distress noted. HEART/CARDIOVASCULAR: Regular. There is no tachycardia. There is no gallop rub or murmur. ABDOMEN: Abdomen is soft, nontender. Patient has normal bowel sounds. There is no abdominal distention. SKIN: There is no rash. There is 1+ bilateral lower extremity pitting edema. There is no diaphoresis. NEURO: The patient is awake, alert, and oriented. The patient is cooperative. The patient has normal speech MUSCULOSKELETAL: There is no evidence of acute injury. ED Course Vital Signs 12/08/17 17:22 Temperature 99 F Pulse Rate 103 H Respiratory 18 Rate Blood Pressure 107/61 O2 Sat by Pulse 99 Oximetry ED Medical Decision Making - Lab Data Result diagrams: 12/08/17 18:51 12/08/17 18:51 Laboratory Tests 12/08/17 12/08/17 12/08/17 18:51 18:51 18:51 WBC 8.6 RBC 4.01 Hgb 9.6 L Hct 29.8 L MCV 74 L MCH 24 L MCHC 32 RDW 18.6 H Plt Count 288 Lymph % (Auto) 37.6 H [place] % (Auto) 5.3 Eos % (Auto) 1.8 Baso % (Auto) 0.9 Lymph # 3.2 [place] # 0.5 Eos # 0.2 Baso # 0.1 Seg Neutrophils % 54.4 Seg Neutrophils # 4.7 Percent Retic 0.93 PT INR APTT Sodium 138 Potassium 3.7 Chloride 101.7 Carbon Dioxide 23 Anion Gap 17 BUN 9 Creatinine 0.7 Estimated GFR > 60 BUN/Creatinine Ratio 13 Glucose 130 H Calcium 8.9 Total Creatine Kinase 143 H CK-MB (CK-2) < 1.0 CK-MB (CK-2) Rel Index 0.6 Troponin T NT-Pro-B Natriuret Pep HCG, Qual Negative 12/08/17 12/08/17 18:51 18:51 WBC RBC Hgb Hct MCV MCH MCHC RDW Plt Count Lymph % (Auto) [place] % (Auto) Eos % (Auto) Baso % (Auto) Lymph # [place] # Eos # Baso # Seg Neutrophils % Seg Neutrophils # Percent Retic PT 12.0 L INR 0.85 L APTT 29.7 Sodium Potassium Chloride Carbon Dioxide Anion Gap BUN Creatinine Estimated GFR BUN/Creatinine Ratio Glucose Calcium Total Creatine Kinase CK-MB (CK-2) CK-MB (CK-2) Rel Index Troponin T < 0.010 NT-Pro-B Natriuret Pep 46.12 HCG, Qual - EKG Data -: EKG Interpreted by Me EKG shows normal: sinus rhythm Rate: normal - EKG Data When compared to previous EKG there are: previous EKG unavailable Interpretation: other (no ischemic changes seen) - Radiology Data Radiology results: report reviewed (chest x-ray, VQ scan), image reviewed ( chest x-ray, VQ scan) interpreted by me: Chest x-ray-no focal infiltrates, no pneumothorax FINAL REPORT EXAM: NM LUNG SCAN PERF/VENT HISTORY: chest pain, sickle cell TECHNIQUE: Ventilation images were obtained in the posterior projection during inhalation, equilibrium, and washout phases. Perfusion imaging of the lungs was performed in multiple planar projections. Correlation with a chest x-ray dated 12/08/2017 was made. DOSE: 15 millicuries Xe-133 gas; 5.0 millicuries 99m Tc MAA given IV. PRIORS: None. FINDINGS: The tracer distribution on perfusion imaging is homogeneous throughout. No unmatched segmental or subsegmental perfusion defects are identified to suggest the presence of pulmonary embolism. The ventilation study is also homogeneous and within normal limits. IMPRESSION: Normal V/Q scan Transcribed By: [facility] Dictated By: BRENDA PRUITT MD Electronically Authenticated By: BRENDA PRUITT MD Signed Date/Time: 12/08/172119 DD/ 19 TD/TT: 12/08/172119 - Differential Diagnosis sickle cell pain crisis, pericarditis, PE Critical care attestation.: If time is entered above; I have spent that time in minutes in the direct care of this critically ill patient, excluding procedure time. ED Disposition Clinical Impression: Sickle cell pain crisis Disposition: - TO HOME OR SELFCARE Is pt being admited?: No Does the pt Need Aspirin: No Condition: Stable Instructions: Sickle Cell Crisis (ED) Additional Instructions: Return to the emergency department immediately should you develop worsening symptoms, fever, inability to tolerate food or liquid or any other concerns. Prescriptions: HYDROcodone/APAP 5-325 [[place] 5/325] 1 - 2 each PO Q6HR PRN #14 tablet PRN Reason: Pain Referrals: PRIMARY CARE, [Primary Care Provider] - 3-5 Days URI MURCIA DO [Staff Physician] - 3-5 Days (Dr. Murcia is a retail performance specialist. Please follow-up with him for further evaluation) Time of Disposition: 22:04
[2017-12-08 19:02] LABS: Basophils # (Auto) 0.1 K/mm3 (0.0-0.1); Basophils % (Auto) 0.9 % (0.0-1.8); Eosinophils # (Auto) 0.2 K/mm3 (0.0-0.4); Eosinophils % (Auto) 1.8 % (0.0-4.3); Hematocrit 29.8 % (30.3-42.9); Hemoglobin 9.6 gm/dl (10.1-14.3); Lymphocytes # (Auto) 3.2 K/mm3 (1.2-5.4); Lymphocytes % (Auto) 37.6 % (13.4-35.0); Mean Corpuscular HGB Conc 32 % (30-34); Mean Corpuscular Volume 74 fl (79-97); Monocytes # (Auto) 0.5 K/mm3 (0.0-0.8); Monocytes % (Auto) 5.3 % (0.0-7.3); Platelet Count 288 K/mm3 (140-440); Red Blood Count 4.01 M/mm3 (3.65-5.03); Red Cell Distribution Width 18.6 % (13.2-15.2)
[2017-12-08 19:07] LABS: Mean Corpuscular Hemoglobin 24 pg (28-32)
[2017-12-08 19:11] LABS: INR 0.85 (0.87-1.13)
[2017-12-08 19:12] LABS: Partial Thromboplastin Time 29.7 Sec. (24.2-36.6)
[2017-12-08 19:19] LABS: BUN/Creatinine Ratio 13; Blood Urea Nitrogen 9 mg/dL (7-17); Calcium 8.9 mg/dL (8.4-10.2); Creatine Kinase MB < 1.0 ng/mL (0.0-4.0); Hemolysis Index 2
--- NOTE | 2017-12-08 21:07 | XRay Report ---
FINAL REPORT EXAM: XR CHEST 1V AP HISTORY: chest pain TECHNIQUE: AP portable view of the chest PRIORS: None. FINDINGS: Lines, tubes, and devices: N/A Lungs and pleura: Trachea is normal in position. Lungs are clear of infiltrate, pleural effusion, vascular congestion, or pneumothorax. Cardiomediastinal silhouette: Cardiac and mediastinal silhouettes are unremarkable. Other: Bony structures are intact. IMPRESSION: No acute cardiopulmonary process seen.
--- NOTE | 2017-12-08 21:24 | Nuclear Medicine Report ---
FINAL REPORT EXAM: NM LUNG SCAN PERF/VENT HISTORY: chest pain, sickle cell TECHNIQUE: Ventilation images were obtained in the posterior projection during inhalation, equilibrium, and washout phases. Perfusion imaging of the lungs was performed in multiple planar projections. Correlation with a chest x-ray dated 12/08/2017 was made. DOSE: 15 millicuries Xe-133 gas; 5.0 millicuries 99m Tc MAA given IV. PRIORS: None. FINDINGS: The tracer distribution on perfusion imaging is homogeneous throughout. No unmatched segmental or subsegmental perfusion defects are identified to suggest the presence of pulmonary embolism. The ventilation study is also homogeneous and within normal limits. IMPRESSION: Normal V/Q scan
[2017-12-08 22:20] VITALS: BP 129/69
== END 2017-12-08 22:28 | disposition home or self-care (01) ==
LOC: ED 17:11
DX: D57.00 Hb-SS disease with crisis, unspecified (principal); K21.9 Gastro-esophageal reflux disease without esophagitis; J45.909 Unspecified asthma, uncomplicated
CPT/HCPCS: 36415; 71045; 78582; 80048; 82550; 82553; 83880; 84484; 84703; 85025; 85045; 85610; 85730; 93005; 93010; 96374; 96375; 96376; 99283; A9540; A9558; J1170; J2405

== ENCOUNTER 2018-03-27 23:08 | Inpatient (IN) | payer MEDICAID ==
[2018-03-28] MEDS ORDERED: D5NS 0.2% 1,000 ML IV SCH (02:00)
[2018-03-28 06:31] LABS: Basophils % (Auto) 0.6 % (0.0-1.8); Eosinophils # (Auto) 0.2 K/mm3 (0.0-0.4); Eosinophils % (Auto) 2.6 % (0.0-4.3); Hematocrit 31.4 % (30.3-42.9); Hemoglobin 10.2 gm/dl (10.1-14.3); Lymphocytes # (Auto) 2.4 K/mm3 (1.2-5.4); Lymphocytes % (Auto) 34.4 % (13.4-35.0); Mean Corpuscular HGB Conc 32 % (30-34); Mean Corpuscular Volume 78 fl (79-97); Monocytes # (Auto) 0.5 K/mm3 (0.0-0.8); Monocytes % (Auto) 7.3 % (0.0-7.3); Red Blood Count 4.02 M/mm3 (3.65-5.03); Red Cell Distribution Width 18.9 % (13.2-15.2)
[2018-03-28 06:32] LABS: Mean Corpuscular Hemoglobin 25 pg (28-32); Platelet Count 254 K/mm3 (140-440)
[2018-03-28] MEDS ORDERED: DILAUDID IV ONE (08:53)
[2018-03-28] MEDS ORDERED: ZOFRAN IV ONE (08:53)
[2018-03-28] MEDS ORDERED: BENADRYL IV ONE (08:53)
[2018-03-28] MEDS ORDERED: NACL 0.9% 1000 ML 1,000 ML IV ONE (08:53)
--- NOTE | 2018-03-28 08:56 | Emergency Department Report ---
ED Lower Extremity HPI - General Chief Complaint: Sickle Cell Crisis Stated Complaint: SICKLE CELL PAIN Time Seen by Provider: 03/28/18 08:51 Source: patient Mode of arrival: Ambulatory Limitations: No Limitations - History of Present Illness Initial Comments: Patient is a 37-year-old female that presents to emergency room with sickle cell crisis pain in her arms and legs. Patient states it started 24 hours ago and is not able to control them with her home medications. Patient states when she comes hospital to give her fluid auction Dilaudid and Benadryl and something for nausea. Patient state describes the pain as a stabbing pain all up and down her arms and legs. Patient states the pain is 10 out of 10. Patient states the pain is better with rest and hydration. And is worse with movement and palpation. She denies chest pain or shortness of breath. Patient has fever and chills. -: Sudden Injury: Leg: Right, Left Place: home Severity: severe Severity scale (0 -10): 10 Improves With: rest Worsens With: movement Context: other Treatments Prior to Arrival: cold therapy - Related Data Home Medications Medication Instructions Recorded Confirmed Last Taken Cyclobenzaprine [Flexeril] 10 mg PO TID PRN 03/28/18 03/28/18 Unknown Doxycycline [Vibramycin] 100 mg PO BID 03/28/18 03/28/18 Unknown Folic Acid [Folvite] 1 mg PO DAILY 03/28/18 03/28/18 Unknown Sennosides [Senna Lax] 8.6 mg PO QHS 03/28/18 03/28/18 Unknown diphenhydrAMINE [Benadryl CAP] 25 mg PO Q6H 03/28/18 03/28/18 Unknown Previous Rx's Medication Instructions Recorded Last Taken Type Hydroxyurea [Hydrea] 500 mg PO DAILY #30 cap 09/19/17 Unknown Rx Oxycodone HCl/Acetaminophen 1 each PO Q6HR PRN #12 tablet 09/19/17 Unknown Rx [Percocet 10/325 mg] Allergies Allergy/AdvReac Type Severity Reaction Status Date / Time NSAIDS (Non-Steroidal Allergy Intermediate Hives Verified 07/19/17 14:04 Anti-Inflamma Sulfa (Sulfonamide Allergy Unknown Verified 12/08/17 17:26 Antibiotics) ED Review of Systems ROS: Stated complaint: SICKLE CELL PAIN Other details as noted in HPI Constitutional: denies: chills, fever Eyes: denies: eye pain, eye discharge, vision change ENT: denies: ear pain, throat pain Respiratory: denies: cough, shortness of breath, wheezing Cardiovascular: denies: chest pain, palpitations Endocrine: no symptoms reported Gastrointestinal: denies: abdominal pain, nausea, diarrhea Genitourinary: denies: urgency, dysuria, discharge Musculoskeletal: arthralgia, myalgia. denies: back pain, joint swelling Skin: denies: rash, lesions Neurological: denies: headache, weakness, paresthesias Psychiatric: denies: anxiety, depression Hematological/Lymphatic: denies: easy bleeding, easy bruising ED Past Medical Hx - Past Medical History Previous Medical History?: Yes Hx Hypertension: No Hx CVA: No Hx Heart Attack/AMI: No Hx Congestive Heart Failure: No Hx Diabetes: No Hx Deep Vein Thrombosis: Yes Hx Pulmonary Embolism: No Hx GERD: Yes Hx Liver Disease: No Hx Renal Disease: No Hx Sickle Cell Disease: Yes Hx Arthritis: Yes (CHRONIC PAIN) Hx Headaches / Migraines: No Hx Seizures: No Hx Kidney Stones: No Hx Psychiatric Treatment: No Hx Asthma: Yes (INHALER PRN) Hx COPD: No Hx Tuberculosis: No Hx Dementia: No Hx HIV: No 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, Stomach ulcers - Surgical History Past Surgical History?: Yes Hx Coronary Stent: No Hx Open Heart Surgery: No Hx Pacemaker: No Hx Internal Defibrillator: No Hx Cholecystectomy: No Hx Appendectomy: No Hx Breast Surgery: No Additional Surgical History: c-secx7, hernia, nerve, left hip replacement - Family History Family history: hypertension - Social History Smoking Status: Current Every Day Smoker Substance Use Type: None - Medications Home Medications: Home Medications Medication Instructions Recorded Confirmed Last Taken Type Hydroxyurea [Hydrea] 500 mg PO DAILY #30 cap 09/19/17 03/28/18 Unknown Rx Oxycodone HCl/Acetaminophen 1 each PO Q6HR PRN #12 tablet 09/19/17 03/28/18 Unknown Rx [Percocet 10/325 mg] Cyclobenzaprine [Flexeril] 10 mg PO TID PRN 03/28/18 03/28/18 Unknown History Doxycycline [Vibramycin] 100 mg PO BID 03/28/18 03/28/18 Unknown History Folic Acid [Folvite] 1 mg PO DAILY 03/28/18 03/28/18 Unknown History Sennosides [Senna Lax] 8.6 mg PO QHS 03/28/18 03/28/18 Unknown History diphenhydrAMINE [Benadryl CAP] 25 mg PO Q6H 03/28/18 03/28/18 Unknown History ED Physical Exam - General Limitations: No Limitations General appearance: alert, in no apparent distress - Head Head exam: Present: atraumatic, normocephalic - Eye Eye exam: Present: normal appearance - ENT ENT exam: Present: mucous membranes moist - Neck Neck exam: Present: normal inspection - Respiratory Respiratory exam: Present: normal lung sounds bilaterally. Absent: respiratory distress - Cardiovascular Cardiovascular Exam: Present: regular rate, normal rhythm. Absent: systolic murmur, diastolic murmur, rubs, gallop - GI/Abdominal GI/Abdominal exam: Present: soft, normal bowel sounds - Extremities Exam Extremities exam: Present: normal inspection, tenderness - Back Exam Back exam: Present: normal inspection - Neurological Exam Neurological exam: Present: alert, oriented X3 - Psychiatric Psychiatric exam: Present: normal affect, normal mood - Skin Skin exam: Present: warm, dry, intact, normal color. Absent: rash ED Course Vital Signs 03/28/18 03/28/18 03/28/18 01:46 04:57 06:12 Temperature 98.8 F 98.5 F Pulse Rate 77 77 Respiratory 18 16 16 Rate Blood Pressure 124/64 109/55 O2 Sat by Pulse 95 100 Oximetry 03/28/18 07:52 Temperature Pulse Rate Respiratory Rate Blood Pressure O2 Sat by Pulse 98 Oximetry - Reevaluation(s) Reevaluation #1: Hospitalist contacted for admission. Hospitalist to assume care of the patient. Discussed plan of care with patient and patient agrees to admission and plan of care. Discussed all results with patient 03/28/18 09:28 ED Lower Extremity MDM - Lab Data Result diagrams: 03/28/18 06:23 03/28/18 09:01 - Medical Decision Making He is a 37-year-old female with a known history of sickle cell and sickle cell crisis. Will admit patient to the hospitalist service for further evaluation and treatment. - Differential Diagnosis sickle cell crisis. Leg pain. Arm pain. Musculoskeletal pain. Critical care attestation.: If time is entered above; I have spent that time in minutes in the direct care of this critically ill patient, excluding procedure time. ED Disposition Clinical Impression: Bilateral lower extremity pain, Bilateral arm pain, Sickle cell disease, type SC, Sickle cell crisis Disposition: OP ADMIT IP TO THIS HOSP Is pt being admited?: Yes Does the pt Need Aspirin: No Condition: Serious Time of Disposition: 08:57
[2018-03-28 09:33] LABS: Alanine Aminotransferase 7 units/L (7-56); Albumin 3.6 g/dL (3.9-5); BUN/Creatinine Ratio 13; Blood Urea Nitrogen 8 mg/dL (7-17); Calcium 9.4 mg/dL (8.4-10.2); Hemolysis Index 9
[2018-03-28] MEDS ORDERED: PEPCID PO PRN (10:05)
[2018-03-28] MEDS ORDERED: TYLENOL PO PRN (10:06)
[2018-03-28] MEDS ORDERED: BENADRYL IV PRN (10:06)
[2018-03-28] MEDS ORDERED: ZOFRAN IV PRN (10:06)
[2018-03-28] MEDS ORDERED: NORCO 10/325 PO PRN (10:07)
[2018-03-28] MEDS ORDERED: NORCO 5/325 ONE ×2 (13:13→20:33)
[2018-03-28] MEDS ORDERED: DILAUDID ONE ×2 (13:13→20:33)
[2018-03-28] MEDS: NORCO 5/325 PO PRN ×2 (13:25→20:46)
[2018-03-28] MEDS: DILAUDID IV PRN ×2 (13:30→20:46)
[2018-03-28] MEDS ORDERED: FLEXERIL PO PRN (18:04)
[2018-03-28] MEDS ORDERED: NON-FORMULARY (Oxycodone Hcl/Acetaminophen [Percocet 10/325 Mg] 1 EACH) PO PRN (18:04)
--- NOTE | 2018-03-28 18:16 | History and Physical Report ---
History of Present Illness Date of examination: 03/28/18 Date of admission: 03/28/18 09:29 Chief complaint: Bilateral knee and leg pains History of present illness: Patient is a 37-year-old woman with a history of DVT, sickle, OA, PUD, asthma and tobacco dependency who presents to emergency room with typical severe intermittent stabbling sharp knife like sickle cell pains in her arms and legs without aggravating or relieving factors. Patient states the pains started 1-2 days ago and it is not able to control them with her home medications. Patient states when she comes hospital to give her fluids, Dilaudid and Benadryl and something for nausea. Patient state describes the pain as a stabbing pain all up and down her arms and legs. Patient states the pain is 10 out of 10. Patient states the pain is better with rest and hydration. And is worse with movement and palpation. She denies chest pain or shortness of breath or headaches. 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 PSH: c section x 7, Left THR, ventral hernia repair, right foot nerve damage repair SH: tobacco dependency, denies alcholol or drug abuse FH: +dm and hypertension, she is unaware of any early CAD ROS: Constitutional: denies: fever ENT: denies: throat or neck pain Respiratory: denies: cough, shortness of breath Cardiovascular: denies: chest pains Endocrine: denies unexplained weight loss or gain Gastrointestinal: denies: abdominal pain, nausea Genitourinary: denies: dysuria Rectal: denies no incontinence, no bleeding, no itching, no discharge Musculoskeletal: denies swelling, +myaglia, muscle weakness Skin: denies: rash Neurological: denies: headache Hematological/Lymphatic: + bleeding or easy bruising Allergic/Immunologic: no urticaria, no allergic rhinitis, no anaphylaxis Psych: denies sadness or hopelessness, SI/HI Medications and Allergies Allergies Allergy/AdvReac Type Severity Reaction Status Date / Time NSAIDS (Non-Steroidal Allergy Intermediate Hives Verified 07/19/17 14:04 Anti-Inflamma Sulfa (Sulfonamide Allergy Unknown Verified 12/08/17 17:26 Antibiotics) Home Medications Medication Instructions Recorded Confirmed Last Taken Type Hydroxyurea [Hydrea] 500 mg PO DAILY #30 cap 09/19/17 03/28/18 Unknown Rx Oxycodone HCl/Acetaminophen 1 each PO Q6HR PRN #12 tablet 09/19/17 03/28/18 Unknown Rx [Percocet 10/325 mg] Cyclobenzaprine [Flexeril] 10 mg PO TID PRN 03/28/18 03/28/18 Unknown History Doxycycline [Vibramycin] 100 mg PO BID 03/28/18 03/28/18 Unknown History Folic Acid [Folvite] 1 mg PO DAILY 03/28/18 03/28/18 Unknown History Sennosides [Senna Lax] 8.6 mg PO QHS 03/28/18 03/28/18 Unknown History diphenhydrAMINE [Benadryl CAP] 25 mg PO Q6H 03/28/18 03/28/18 Unknown History Active Meds: Active Medications Acetaminophen (Tylenol) 650 mg PO Q6H PRN PRN Reason: Non Cardiac Pain or Temp>100.5 Acetaminophen/Hydrocodone Bitart ([place] 10/325) 1 each PO Q4H PRN PRN Reason: Pain,(MOD 4-6) UNREL. BY 5/325 Acetaminophen/Hydrocodone Bitart ([place] 5/325) 1 each PO Q4H PRN PRN Reason: Pain, Moderate (4-6) Last Admin: 03/28/18 13:25 Dose: 1 each Cyclobenzaprine HCl (Flexeril) 10 mg PO TID PRN PRN Reason: Muscle Spasm Diphenhydramine HCl (Benadryl) 25 mg IV Q6H PRN PRN Reason: Itching Famotidine (Pepcid) 20 mg PO BID PRN PRN Reason: Indigestion Folic Acid (Folvite) 1 mg PO DAILY [facility] Heparin Sodium (Porcine) (Heparin) 5,000 unit SUB-Q Q12HR LETTY Hydromorphone HCl (Dilaudid) 1 mg IV Q4H PRN PRN Reason: Pain , Severe (7-10) Last Admin: 03/28/18 13:30 Dose: 1 mg Hydroxyurea (Hydrea) 500 mg PO DAILY [facility] Dextrose/Sodium Chloride (D5ns 0.2%) 1,000 mls @ 250 mls/hr IV DIRECT LETTY Miscellaneous Medication (Oxycodone Hcl/Acetaminophen [Percocet 10/325 Mg]) 1 each PO Q6HR PRN PRN Reason: Pain Ondansetron HCl (Zofran) 4 mg IV Q4H PRN PRN Reason: Nausea And Vomiting Senna (Senokot) 8.6 mg PO QHS LETTY Exam - Physical Exam Narrative exam: GEN: WDWN, mo bmi 43, NAD, Awake, Alert, Orientated x 3 HEENT: NCAT, EOMI, PERRL, OP Clear NECK: supple, no adenopathy, no thyromegaly, no JVD CVS/HEART: RRR, normal S1S2, pulses present bilaterally CHEST/LUNGS: CTA B, Symmetrical chest expansion, good air entry bilaterally GI/Abdomen: soft, NTND, good bowel sounds, no guarding or rebound /Bladder: no suprapubic tenderness, no CVA or paraspinal tenderness EXT/Skin: no c/c/e, no obvious rash MSK: FROM x 4 Neuro: CN 2-12 grossly intact, no new focal deficits Psych: calm - Constitutional Vitals: Temp Pulse Resp BP Pulse Ox 98.5 F 77 16 109/55 98 03/28/18 04:57 03/28/18 04:57 03/28/18 06:12 03/28/18 04:57 03/28/18 07:52 Results - Labs CBC & Chem 7: 03/28/18 06:23 03/28/18 09:01 Labs: Abnormal lab results 03/28/18 03/28/18 Range/Units 06:23 09:01 MCV 78 L (79-97) fl MCH 25 L (28-32) pg RDW 18.9 H (13.2-15.2) % Creatinine 0.6 L (0.7-1.2) mg/dL Albumin 3.6 L (3.9-5) g/dL Assessment and Plan Patient is a 37-year-old woman with a history of DVT, sickle cell disorder, OA, PUD, asthma and tobacco dependency who presents to emergency room with typical severe intermittent stabbling sharp knife like sickle cell pains in her arms and legs without aggravating or relieving factors. Patient states the pains started 1-2 days ago and it is not able to control them with her home medications. Patient states when she comes hospital to give her fluids, Dilaudid and Benadryl and something for nausea. Patient state describes the pain as a stabbing pain all up and down her arms and legs. Patient states the pain is 10 out of 10. Patient states the pain is better with rest and hydration. And is worse with movement and palpation. She denies chest pain or shortness of breath or headaches. -Sickle cell vasocclusive pain crisis: ivf, iv narcotics, continue home medications -Tobacco dependency: certified genetic counselor on stopping and offered nicotine patch, she declined -GERD: ppi -DVT prophylaxis: sq heparin
[2018-03-28] MEDS ORDERED: ROXICODONE PO PRN (19:31)
[2018-03-28] MEDS ORDERED: PERCOCET 5/325 PO PRN (19:33)
[2018-03-28] MEDS ORDERED: BENADRYL ONE (21:21)
--- NOTE | 2018-03-28 23:18 | Consultation ---
History of Present Illness - Reason for Consult Consult date: 03/28/18 SCD/pain crisis. Requesting physician: ELODIA ALEGRIA - History of Present Illness Thank you for this consult, patient , resting in bed, records/labs reviewed., and fairly stable.Patient presented, admitted, for sxs management.Multiple medical problems.She denies any Chest pain, except for her usual crisis pain. Medications and Allergies Allergies Allergy/AdvReac Type Severity Reaction Status Date / Time NSAIDS (Non-Steroidal Allergy Intermediate Hives Verified 07/19/17 14:04 Anti-Inflamma Sulfa (Sulfonamide Allergy Unknown Verified 12/08/17 17:26 Antibiotics) Home Medications Medication Instructions Recorded Confirmed Last Taken Type Hydroxyurea [Hydrea] 500 mg PO DAILY #30 cap 09/19/17 03/28/18 Unknown Rx Oxycodone HCl/Acetaminophen 1 each PO Q6HR PRN #12 tablet 09/19/17 03/28/18 Unknown Rx [Percocet 10/325 mg] Cyclobenzaprine [Flexeril] 10 mg PO TID PRN 03/28/18 03/28/18 Unknown History Doxycycline [Vibramycin] 100 mg PO BID 03/28/18 03/28/18 Unknown History Folic Acid [Folvite] 1 mg PO DAILY 03/28/18 03/28/18 Unknown History Sennosides [Senna Lax] 8.6 mg PO QHS 03/28/18 03/28/18 Unknown History diphenhydrAMINE [Benadryl CAP] 25 mg PO Q6H 03/28/18 03/28/18 Unknown History Active Meds: Active Medications Acetaminophen (Tylenol) 650 mg PO Q6H PRN PRN Reason: Non Cardiac Pain or Temp>100.5 Acetaminophen/Hydrocodone Bitart ([place] 10/325) 1 each PO Q4H PRN PRN Reason: Pain,(MOD 4-6) UNREL. BY 5/325 Acetaminophen/Hydrocodone Bitart ([place] 5/325) 1 each PO Q4H PRN PRN Reason: Pain, Moderate (4-6) Last Admin: 03/28/18 20:46 Dose: 1 each Cyclobenzaprine HCl (Flexeril) 10 mg PO TID PRN PRN Reason: Muscle Spasm Diphenhydramine HCl (Benadryl) 25 mg IV Q6H PRN PRN Reason: Itching Last Admin: 03/28/18 21:24 Dose: 25 mg Famotidine (Pepcid) 20 mg PO BID PRN PRN Reason: Indigestion Folic Acid (Folvite) 1 mg PO DAILY [facility] Heparin Sodium (Porcine) (Heparin) 5,000 unit SUB-Q Q12HR LETTY Hydromorphone HCl (Dilaudid) 1 mg IV Q4H PRN PRN Reason: Pain , Severe (7-10) Last Admin: 03/28/18 20:46 Dose: 1 mg Hydroxyurea (Hydrea) 500 mg PO DAILY [facility] Ondansetron HCl (Zofran) 4 mg IV Q4H PRN PRN Reason: Nausea And Vomiting Oxycodone HCl (Roxicodone) 5 mg PO Q6H PRN PRN Reason: PAIN UNRELIEVED BY NORCO/DILAU Oxycodone/Acetaminophen (Percocet 5/325) 1 tab PO Q6H PRN PRN Reason: PAIN UNRELIEVED BY NORCO/DILAU Senna (Senokot) 8.6 mg PO QHS [facility] Review of Systems Constitutional: chronic pain Musculoskeletal: low back pain Exam - Constitutional Vitals: Temp Pulse Resp BP Pulse Ox 99.0 F 87 16 113/44 99 03/28/18 20:30 03/28/18 20:30 03/28/18 20:30 03/28/18 20:30 03/28/18 20:30 General appearance: Present: mild distress, well-nourished - EENT Eyes: Present: PERRL ENT: hearing intact, clear oral mucosa - Neck Neck: Present: supple, normal ROM - Respiratory Respiratory effort: normal Respiratory: bilateral: CTA - Cardiovascular Heart Sounds: Present: S1 & S2. Absent: rub, click - Extremities Extremities: pulses symmetrical, No edema Peripheral Pulses: within normal limits - Abdominal General gastrointestinal: Present: soft, non-tender, non-distended, normal bowel sounds Female genitourinary: Present: deferred - Rectal Rectal Exam: deferred - Integumentary Integumentary: Present: clear, warm, dry - Musculoskeletal Musculoskeletal: gait normal, strength equal bilaterally - Psychiatric Psychiatric: appropriate mood/affect, intact judgment & insight - Neurologic Neurologic: CNII-XII intact, moves all extremities Results - Labs CBC & Chem 7: 03/28/18 06:23 03/28/18 09:01 Labs: Abnormal lab results 03/28/18 03/28/18 Range/Units 06:23 09:01 MCV 78 L (79-97) fl MCH 25 L (28-32) pg RDW 18.9 H (13.2-15.2) % Creatinine 0.6 L (0.7-1.2) mg/dL Albumin 3.6 L (3.9-5) g/dL Assessment and Plan - Patient Problems (1) Bilateral arm pain Current Visit: Yes Status: Acute Plan to address problem: Pain control. (2) Sickle cell crisis Current Visit: Yes Status: Acute Plan to address problem: better pain control. (3) Dehydration Current Visit: Yes Status: Acute Plan to address problem: hydration
[2018-03-29] MEDS ORDERED: D5NS 0.2% 1,000 ML IV SCH (01:00)
[2018-03-29] MEDS: DILAUDID IV PRN ×5 (01:24→20:01)
[2018-03-29] MEDS: BENADRYL IV PRN ×5 (01:24→20:01)
[2018-03-29] MEDS: SENOKOT PO SCH ×2 (01:41→21:38)
--- NOTE | 2018-03-29 09:51 | Nuclear Medicine Report ---
VENTILATION PERFUSION SCAN INDICATION: Pain with deep breathing. History of DVT. COMPARISON: 12/08/2017 VQ scan. FINDINGS: VQ scan performed in anterior, posterior, lateral and oblique projections. 5 mCi of technetium 99m MAA was used for the perfusion assessment while 15 millicuries of Xenon 133 was utilized for the ventilation portion of the study. Ventilation images demonstrate slight radiotracer retention toward the bases. Small horizontal peripheral/subsegmental photopenic region may now be noted in the inferolateral right lower lung. Otherwise homogenous radiotracer distribution throughout both lungs. The perfusion matches the ventilation without large lobar or definite segmental defects. Accompanying chest radiograph demonstrates normal cardiomediastinal silhouette and clear lungs. CONCLUSION: Low probability exam for pulmonary embolism. Thank you for the opportunity to participate in this patient's care.
--- NOTE | 2018-03-29 09:52 | XRay Report ---
CHEST 2 VIEWS INDICATION: Pain, cough. COMPARISON: 12/08/2017 FINDINGS: PA and lateral chest radiographs demonstrate normal cardiomediastinal silhouette. Clear lungs. Intact bones. CONCLUSION: No acute disease. Thank you for the opportunity to participate in this patient's care.
[2018-03-29] MEDS: FOLVITE PO SCH (10:22)
[2018-03-29] MEDS: HEPARIN SUB-Q SCH ×2 (10:23→21:38)
[2018-03-29] MEDS: HYDREA PO SCH (10:23)
--- NOTE | 2018-03-29 12:25 | Progress Note ---
Assessment and Plan Assessment and plan: Patient is a 37-year-old woman with a history of treated DVT, sickle cell disorder, OA, PUD, asthma and tobacco dependency who presents to emergency room with typical severe intermittent stabbling sharp knife like sickle cell pains in her arms and legs without aggravating or relieving factors. Patient states the pains started 1-2 days ago and it is not able to control them with her home medications. Patient states when she comes hospital to give her fluids, Dilaudid and Benadryl and something for nausea. Patient state describes the pain as a stabbing pain all up and down her arms and legs. Patient states the pain is 10 out of 10. Patient states the pain is better with rest and hydration. And is worse with movement and palpation. She denies chest pain or shortness of breath or headaches. -Sickle cell vasocclusive pain crisis: ivf, iv narcotics, continue home medications -Tobacco dependency: middle school guidance counselor on stopping and offered nicotine patch, she wants nicotine patch now -GERD: ppi -DVT prophylaxis: sq heparin V/Q scan low probability PE 2v CXR no acute findings pt refusing ivf, and walking up and down hallways without problems. retic count normal ok to discharge if ok with Dr. Angel History Interval history: Patient was seen and examined. Follow-up on current diagnosis generalize bone pains. Overnight uneventful. Patient denies any chest pain, shortness breath, nausea/vomiting or severe headaches or cough. Imaging, nursing note, chart, labs and old chart reviewed. Discussed with patient. Hospitalist Physical - Physical exam Narrative exam: GEN: WDWN, mo bmi 43, NAD, Awake, Alert, Orientated x 3 HEENT: NCAT, EOMI, PERRL, OP Clear NECK: supple, no adenopathy, no thyromegaly, no JVD CVS/HEART: RRR, normal S1S2, pulses present bilaterally CHEST/LUNGS: CTA B, Symmetrical chest expansion, good air entry bilaterally GI/Abdomen: soft, NTND, good bowel sounds, no guarding or rebound /Bladder: no suprapubic tenderness, no CVA or paraspinal tenderness EXT/Skin: no c/c/e, no obvious rash MSK: FROM x 4 Neuro: CN 2-12 grossly intact, no new focal deficits Psych: calm - Constitutional Vitals: Temp Pulse Resp BP Pulse Ox 98.2 F 70 19 104/62 94 03/29/18 08:06 03/29/18 08:06 03/29/18 08:06 03/29/18 08:06 03/28/18 22:45 General appearance: Present: well-nourished. Absent: mild distress Results - Labs CBC & Chem 7: 03/28/18 06:23 03/28/18 09:01 Labs: Laboratory Last Values WBC 6.9 K/mm3 (4.5-11.0) 03/28/18 06:23 RBC 4.02 M/mm3 (3.65-5.03) 03/28/18 06:23 Hgb 10.2 gm/dl (10.1-14.3) 03/28/18 06:23 Hct 31.4 % (30.3-42.9) 03/28/18 06:23 MCV 78 fl (79-97) L 03/28/18 06:23 MCH 25 pg (28-32) L 03/28/18 06:23 MCHC 32 % (30-34) 03/28/18 06:23 RDW 18.9 % (13.2-15.2) H 03/28/18 06:23 Plt Count 254 K/mm3 (140-440) 03/28/18 06:23 Lymph % (Auto) 34.4 % (13.4-35.0) 03/28/18 06:23 [place] % (Auto) 7.3 % (0.0-7.3) 03/28/18 06:23 Eos % (Auto) 2.6 % (0.0-4.3) 03/28/18 06:23 Baso % (Auto) 0.6 % (0.0-1.8) 03/28/18 06:23 Lymph # 2.4 K/mm3 (1.2-5.4) 03/28/18 06:23 [place] # 0.5 K/mm3 (0.0-0.8) 03/28/18 06:23 Eos # 0.2 K/mm3 (0.0-0.4) 03/28/18 06:23 Baso # 0.0 K/mm3 (0.0-0.1) 03/28/18 06:23 Seg Neutrophils % 55.1 % (40.0-70.0) 03/28/18 06:23 Seg Neutrophils # 3.8 K/mm3 (1.8-7.7) 03/28/18 06:23 Percent Retic 1.19 % (0.78-2.58) 03/28/18 06:23 Sodium 139 mmol/L (137-145) 03/28/18 09:01 Potassium 4.3 mmol/L (3.6-5.0) 03/28/18 09:01 Chloride 101.8 mmol/L (98-107) 03/28/18 09:01 Carbon Dioxide 27 mmol/L (22-30) 03/28/18 09:01 Anion Gap 15 mmol/L 03/28/18 09:01 BUN 8 mg/dL (7-17) 03/28/18 09:01 Creatinine 0.6 mg/dL (0.7-1.2) L 03/28/18 09:01 Estimated GFR > 60 ml/min 03/28/18 09:01 BUN/Creatinine Ratio 13 % 03/28/18 09:01 Glucose 79 mg/dL (65-100) 03/28/18 09:01 Calcium 9.4 mg/dL (8.4-10.2) 03/28/18 09:01 Total Bilirubin 0.50 mg/dL (0.1-1.2) 03/28/18 09:01 AST 16 units/L (5-40) 03/28/18 09:01 ALT 7 units/L (7-56) 03/28/18 09:01 Alkaline Phosphatase 75 units/L (35-129) 03/28/18 09:01 Total Protein 6.9 g/dL (6.3-8.2) 03/28/18 09:01 Albumin 3.6 g/dL (3.9-5) L 03/28/18 09:01 Albumin/Globulin Ratio 1.1 % 03/28/18 09:01
--- NOTE | 2018-03-29 12:31 | Discharge Summary ---
Providers - Providers Date of Admission: 03/28/18 09:29 Date of discharge: 04/01/18 Attending physician: JOHANN MITCHELL 03/28/18 10:03 Consult to Physician [CONS] Routine Comment: Consulting Provider: URI MURCIA Physician Instructions: Reason For Exam: sickle cell pain crisis Primary care physician: JANESSA DENTON Hospitalization Condition: Stable Hospital course: Patient is a 37-year-old woman with a history of treated DVT, sickle cell disorder, OA, PUD, asthma and tobacco dependency who presents to emergency room with typical severe intermittent stabbling sharp knife like sickle cell pains in her arms and legs without aggravating or relieving factors. Patient states the pains started 1-2 days ago and it is not able to control them with her home medications. Patient states when she comes hospital to give her fluids, Dilaudid and Benadryl and something for nausea. Patient state describes the pain as a stabbing pain all up and down her arms and legs. Patient states the pain is 10 out of 10. Patient states the pain is better with rest and hydration. And is worse with movement and palpation. She denies chest pain or shortness of breath or headaches. 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 Murcia According to [place] supervisor bindery aware Rx patient received 15 percocet 5/325 on 03/26/[address] Malu Aragon. I will not give her anymore narcotics Disposition: DC-01 TO HOME OR SELFCARE Time spent for discharge: 33 minutes Core Measure Documentation - Palliative Care Palliative Care/ Comfort Measures: Not Applicable - Core Measures Any of the following diagnoses?: none - VTE Discharge Requirements Deep Vein Thrombosis/Pulmonary Embolism Present on Admission: No Has pt received <5 days of overlap therapy or INR<2.0: No Anticoagulant overlap therapy prescribed at discharge: No Contraindication No Overlap Therapy order at DC: Not Indicated Exam - Physical Exam Narrative exam: GEN: WDWN, mo bmi 43, NAD, Awake, Alert, Orientated x 3 HEENT: NCAT, EOMI, PERRL, OP Clear NECK: supple, no adenopathy, no thyromegaly, no JVD CVS/HEART: RRR, normal S1S2, pulses present bilaterally CHEST/LUNGS: CTA B, Symmetrical chest expansion, good air entry bilaterally GI/Abdomen: soft, NTND, good bowel sounds, no guarding or rebound /Bladder: no suprapubic tenderness, no CVA or paraspinal tenderness EXT/Skin: no c/c/e, no obvious rash MSK: FROM x 4 Neuro: CN 2-12 grossly intact, no new focal deficits Psych: calm - Constitutional Vitals: Temp Pulse Resp BP Pulse Ox 98.2 F 70 19 104/62 94 03/29/18 08:06 03/29/18 08:06 03/29/18 08:06 03/29/18 08:06 03/28/18 22:45 Plan Activity: other (no strenous activity until cleared by Dr. Murcia) Diet: regular Follow up with: JANESSA DENTON MD [Primary Care Provider] - 3-5 Days URI MURCIA DO [Staff Physician] - 7 Days
[2018-03-29] MEDS: HABITROL TD SCH (15:10)
--- NOTE | 2018-03-29 23:14 | Progress Note ---
Assessment and Plan - Patient Problems (1) Bilateral arm pain Current Visit: Yes Status: Acute Plan to address problem: Pain control. (2) Sickle cell crisis Current Visit: Yes Status: Acute Plan to address problem: better pain control. (3) Dehydration Current Visit: Yes Status: Acute Plan to address problem: hydration Subjective Date of service: 03/29/18 Interval history: patient seen earlier, planned on d/c at that time.she will f/up in the office. Objective - Constitutional General appearance: Present: no acute distress, well-nourished - EENT Eyes: PERRL, EOM intact ENT: hearing intact, clear oral mucosa Ears: bilateral: normal - Neck Neck: supple, normal ROM - Respiratory Respiratory effort: normal Respiratory: bilateral: CTA - Breasts Breasts: deferred - Cardiovascular Rhythm: regular Heart Sounds: Present: S1 & S2. Absent: gallop, rub Extremities: pulses intact, No edema, normal color, Full ROM - Gastrointestinal General gastrointestinal: Present: soft, non-tender, non-distended, normal bowel sounds Rectal Exam: deferred - Genitourinary Female genitourinary: deferred - Integumentary Integumentary: clear, warm, dry - Musculoskeletal Musculoskeletal: 1, strength equal bilaterally - Neurologic Neurologic: moves all extremities - Psychiatric Psychiatric: memory intact, appropriate mood/affect, intact judgment & insight - Labs CBC & Chem 7: 03/28/18 06:23 03/28/18 09:01
[2018-03-30] MEDS: DILAUDID IV PRN ×5 (02:58→20:23)
[2018-03-30] MEDS: BENADRYL IV PRN ×5 (02:59→20:24)
[2018-03-30] MEDS: FOLVITE PO SCH (10:21)
[2018-03-30] MEDS: HABITROL TD SCH (10:21)
[2018-03-30] MEDS: HYDREA PO SCH (10:21)
[2018-03-30] MEDS: HEPARIN SUB-Q SCH ×2 (10:21→23:57)
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
[2018-03-30] MEDS ORDERED: DILAUDID IV ONE (22:51)
[2018-03-30] MEDS: SENOKOT PO SCH (23:57)
--- NOTE | 2018-03-31 00:22 | Progress Note ---
Assessment and Plan - Patient Problems (1) Bilateral arm pain Current Visit: Yes Status: Acute Plan to address problem: Pain control. continue same. (2) Sickle cell crisis Current Visit: Yes Status: Acute Plan to address problem: better pain control. (3) Dehydration Current Visit: Yes Status: Acute Plan to address problem: hydration Subjective Date of service: 03/31/18 Interval history: patient seen earlier, planned on d/c at that time.she will f/up in the office. patient resting in bed, old labs reviewed. Objective - Constitutional Vitals: Vital Signs - 12hr 03/30/18 03/30/18 15:27 20:45 Temperature 98.9 F Pulse Rate [ 80 Apical] Respiratory 20 20 Rate Blood Pressure 121/72 O2 Sat by Pulse 92 Oximetry General appearance: Present: mild distress, well-nourished - EENT Eyes: PERRL, EOM intact ENT: hearing intact, clear oral mucosa Ears: bilateral: normal - Neck Neck: supple, normal ROM - Respiratory Respiratory effort: normal Respiratory: bilateral: CTA - Breasts Breasts: deferred - Cardiovascular Rhythm: regular Heart Sounds: Present: S1 & S2. Absent: gallop, rub Extremities: pulses intact, No edema, normal color, Full ROM - Gastrointestinal General gastrointestinal: Present: soft, non-tender, non-distended, normal bowel sounds Rectal Exam: deferred - Genitourinary Female genitourinary: deferred - Integumentary Integumentary: clear, warm, dry - Musculoskeletal Musculoskeletal: 1, strength equal bilaterally - Neurologic Neurologic: moves all extremities - Psychiatric Psychiatric: memory intact, appropriate mood/affect, intact judgment & insight - Labs CBC & Chem 7: 03/28/18 06:23 03/28/18 09:01
[2018-03-31] MEDS: DILAUDID IV PRN ×4 (01:32→19:14)
[2018-03-31] MEDS: BENADRYL IV PRN ×4 (01:34→19:14)
[2018-03-31] MEDS: HYDREA PO SCH (09:10)
[2018-03-31] MEDS: FOLVITE PO SCH (09:10)
[2018-03-31] MEDS: HABITROL TD SCH (09:10)
[2018-03-31] MEDS: HEPARIN SUB-Q SCH ×2 (09:10→22:10)
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
[2018-03-31] MEDS: SENOKOT PO SCH (22:11)
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
[2018-04-01 08:30] VITALS: BP 133/88
[2018-04-01] MEDS: BENADRYL IV PRN (09:02)
[2018-04-01] MEDS: DILAUDID IV PRN (09:03)
[2018-04-01] MEDS: HABITROL TD SCH (11:56)
[2018-04-01] MEDS: HEPARIN SUB-Q SCH (11:56)
[2018-04-01] MEDS: FOLVITE PO SCH (11:58)
[2018-04-01] MEDS: HYDREA PO SCH (11:58)
== END 2018-04-01 15:35 | disposition home or self-care (01) | DRG 812 ==
LOC: ED 23:08 → 4A 03-28 09:29 → 3A 03-28 14:04
PROVIDERS: ADMIT Internal Medicine; ATTEND Internal Medicine
DX: D57.00 Hb-SS disease with crisis, unspecified (principal); F17.200 Nicotine dependence, unspecified, uncomplicated; K21.9 Gastro-esophageal reflux disease without esophagitis; E86.0 Dehydration; M19.90 Unspecified osteoarthritis, unspecified site; M79.602 Pain in left arm; M79.601 Pain in right arm; Z96.642 Presence of left artificial hip joint; Z86.718 Personal history of other venous thrombosis and embolism; Z87.11 Personal history of peptic ulcer disease; Z71.6 Tobacco abuse counseling; Z88.2 Allergy status to sulfonamides; Z79.899 Other long term (current) drug therapy; Z83.3 Family history of diabetes mellitus; Z82.49 Family history of ischemic heart disease and other diseases of the circulatory system
CPT/HCPCS: 36415; 71046; 78582; 80053; 85025; 85045; 96361; 96374; 96375; 96376; 99406; A9540; A9558; J1170; J1200; J1644; J2405; J7030

== ENCOUNTER 2018-05-23 03:19 | Emergency (ER) | payer MEDICAID ==
[2018-05-23] MEDS ORDERED: D5NS 0.2% 1,000 ML IV SCH (05:00)
[2018-05-23 08:43] VITALS: BP 123/88
[2018-05-23] MEDS ORDERED: DILAUDID IM ONE ×2 (13:50→15:27)
[2018-05-23] MEDS ORDERED: ZOFRAN IM ONE (13:50)
[2018-05-23] MEDS ORDERED: BENADRYL IM ONE (13:50)
--- NOTE | 2018-05-23 13:55 | Emergency Department Report ---
HPI - General Chief Complaint: Sickle Cell Crisis Time Seen by Provider: 05/23/18 13:41 - HPI HPI: Room 18 The patient is 37-year-old female presenting with chief complaint of sickle cell pain crisis. The patient states this morning at approximately 01:00 she developed pain in both lower extremities consistent with her sickle cell pain crises. The patient gives her pain a score of 10/10. Location: Bilateral lower extremities Duration: Constant since 01:00 Quality: Sickle cell pain crisis Severity: 10/10 Modifying factors: [see above] Context: [see above] Mode of transportation: [not driving] ED Past Medical Hx - Past Medical History Previous Medical History?: Yes Hx Deep Vein Thrombosis: Yes Hx GERD: Yes Hx Sickle Cell Disease: Yes Hx Arthritis: Yes Hx Asthma: Yes 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, Stomach ulcers - Surgical History Past Surgical History?: Yes Additional Surgical History: c-secx7, hernia, nerve, left hip replacement - Family History Family history: no significant - Social History Smoking Status: Current Every Day Smoker (1/3 pack per day) Substance Use Type: None (denies illicit drug use) - Medications Home Medications: Home Medications Medication Instructions Recorded Confirmed Last Taken Type Hydroxyurea [Hydrea] 500 mg PO DAILY #30 cap 09/19/17 03/28/18 Unknown Rx Oxycodone HCl/Acetaminophen 1 each PO Q6HR PRN #12 tablet 09/19/17 03/28/18 Unknown Rx [Percocet 10/325 mg] Cyclobenzaprine [Flexeril 10 MG 10 mg PO TID PRN 03/28/18 03/28/18 Unknown History TAB] Doxycycline [Vibramycin CAP] 100 mg PO BID 03/28/18 03/28/18 Unknown History Folic Acid [Folvite] 1 mg PO DAILY 03/28/18 03/28/18 Unknown History Sennosides [Senna Lax] 8.6 mg PO QHS 03/28/18 03/28/18 Unknown History diphenhydrAMINE [Benadryl CAP] 25 mg PO Q6H 03/28/18 03/28/18 Unknown History Famotidine [Pepcid] 20 mg PO BID PRN #30 tablet 04/01/18 Unknown Rx HYDROcodone/APAP 5-325 [[place] 1 - 2 each PO Q6HR PRN #14 tablet 05/23/18 Unknown Rx 5/325] ED Review of Systems ROS: Stated complaint: SICKLE CELL PAIN Other details as noted in HPI Constitutional: fever Eyes: denies: eye pain ENT: denies: throat pain Respiratory: no symptoms reported Cardiovascular: denies: chest pain Endocrine: no symptoms reported Gastrointestinal: denies: abdominal pain Genitourinary: denies: dysuria Musculoskeletal: myalgia Neurological: denies: headache Hematological/Lymphatic: other (sickle cell pain crisis) Physical Exam - Physical Exam Vital Signs: Vital Signs 05/23/18 08:30 Temperature 98.4 F Pulse Rate 79 Respiratory 18 Rate Blood Pressure 123/88 O2 Sat by Pulse 100 Oximetry Physical Exam: GENERAL: The patient is well-developed well-nourished female standing in room not appearing to be in acute distress HEENT: Normocephalic. Atraumatic. Extraocular motions are intact. Patient has moist mucous membranes. NECK: Supple. Trachea midline CHEST/LUNGS: Clear to auscultation. There is no respiratory distress noted. HEART/CARDIOVASCULAR: Regular. There is no tachycardia. There is no gallop rub or murmur. 2+ DPs bilaterally ABDOMEN: Abdomen is soft, nontender. Patient has normal bowel sounds. There is no abdominal distention. SKIN: There is no rash. There is no edema. There is no diaphoresis. NEURO: The patient is awake, alert, and oriented. The patient is cooperative. The patient has no focal neurologic deficits. The patient has normal speech MUSCULOSKELETAL:There is no evidence of acute injury. ED Course Vital Signs 05/23/18 08:30 Temperature 98.4 F Pulse Rate 79 Respiratory 18 Rate Blood Pressure 123/88 O2 Sat by Pulse 100 Oximetry ED Medical Decision Making - Lab Data Result diagrams: 05/23/18 14:46 Laboratory Tests 05/23/18 14:46 WBC 7.0 RBC 4.38 Hgb 11.1 Hct 34.5 MCV 79 MCH 25 L MCHC 32 RDW 19.1 H Plt Count 303 Lymph % (Auto) 34.1 [place] % (Auto) 6.3 Eos % (Auto) 1.0 Baso % (Auto) 0.7 Lymph # 2.4 [place] # 0.4 Eos # 0.1 Baso # 0.1 Seg Neutrophils % 57.9 Seg Neutrophils # 4.0 Percent Retic 1.56 - Radiology Data Radiology results: report reviewed (bilateral lower extremity Doppler) RAMIREZ SANTOYO Female : 1980 [facility]# [id number] 05/23/18 14:48 - Radiology Dept. Note by DL AC [facility] Num: [id number] : 1980 Patient Age: 37 VASCULAR LAB.PRELIMINARY REPORT. BLE VENOUS DUPLEX DONE. NO EVIDENCE OF DVT/SVT IN VESSELS VISUALIZED. Initialized on 05/23/18 14:48 - END OF NOTE - Differential Diagnosis sickle cell pain crisis, DVT Critical care attestation.: If time is entered above; I have spent that time in minutes in the direct care of this critically ill patient, excluding procedure time. ED Disposition Clinical Impression: Sickle cell pain crisis, Acute pain of lower extremity Disposition: DC-01 TO HOME OR SELFCARE Is pt being admited?: No Does the pt Need Aspirin: No Condition: Stable Instructions: Sickle Cell Crisis (ED) Additional Instructions: Return to the emergency department immediately should you develop worsening symptoms, fever, inability to tolerate food or liquid or any other concerns. Prescriptions: HYDROcodone/APAP 5-325 [[place] 5/325] 1 - 2 each PO Q6HR PRN #14 tablet PRN Reason: Pain Referrals: URI MURCIA DO [Staff Physician] - 3-5 Days (Dr Murcia is your service sprinkler helper. Please follow-up with him for further evaluation) Time of Disposition: 15:29
[2018-05-23 15:06] LABS: Basophils # (Auto) 0.1 K/mm3 (0.0-0.1); Basophils % (Auto) 0.7 % (0.0-1.8); Eosinophils # (Auto) 0.1 K/mm3 (0.0-0.4); Hematocrit 34.5 % (30.3-42.9); Hemoglobin 11.1 gm/dl (10.1-14.3); Lymphocytes # (Auto) 2.4 K/mm3 (1.2-5.4); Lymphocytes % (Auto) 34.1 % (13.4-35.0); Mean Corpuscular HGB Conc 32 % (30-34); Mean Corpuscular Volume 79 fl (79-97); Monocytes # (Auto) 0.4 K/mm3 (0.0-0.8); Monocytes % (Auto) 6.3 % (0.0-7.3); Platelet Count 303 K/mm3 (140-440); Red Blood Count 4.38 M/mm3 (3.65-5.03); Red Cell Distribution Width 19.1 % (13.2-15.2)
[2018-05-23 15:07] LABS: Mean Corpuscular Hemoglobin 25 pg (28-32)
== END 2018-05-23 16:27 | disposition home or self-care (01) ==
LOC: ED 03:19
DX: D57.00 Hb-SS disease with crisis, unspecified (principal); K21.9 Gastro-esophageal reflux disease without esophagitis; J45.909 Unspecified asthma, uncomplicated; M19.90 Unspecified osteoarthritis, unspecified site; F17.200 Nicotine dependence, unspecified, uncomplicated; Z86.718 Personal history of other venous thrombosis and embolism; Z87.11 Personal history of peptic ulcer disease
CPT/HCPCS: 36415; 85025; 85045; 93970; 96372; 99284; J1170; J1200; J2405

== ENCOUNTER 2018-05-29 12:07 | Emergency (ER) | payer MEDICAID ==
[2018-05-29] MEDS ORDERED: D5NS 0.2% 1,000 ML IV SCH (13:00)
--- NOTE | 2018-05-29 20:37 | Emergency Department Report ---
HPI - General Chief Complaint: Sickle Cell Crisis Time Seen by Provider: 05/29/18 19:56 - HPI HPI: 37-year-old female presents to the emergency department with a complaint of bilateral lower extension pain that she says is a sickle cell pain crisis. The patient was here about one week ago for similar symptoms and had negative Dopplers done at that time. She was sent home with a prescription for [place], which she has been taking with only some transient relief. She has an appointment next week with her bakery helper, Dr. Murcia. She denies any fever, chest pain, shortness of breath, nausea, vomiting. No recent travel or sick contacts at home. She does have previous history of DVT, GERD, stomach ulcers. ED Past Medical Hx - Past Medical History Hx Hypertension: No Hx CVA: No Hx Heart Attack/AMI: No Hx Congestive Heart Failure: No Hx Diabetes: No Hx Deep Vein Thrombosis: Yes Hx Pulmonary Embolism: No Hx GERD: Yes Hx Liver Disease: No Hx Renal Disease: No Hx Sickle Cell Disease: Yes Hx Arthritis: Yes Hx Headaches / Migraines: No Hx Seizures: No Hx Kidney Stones: No Hx Psychiatric Treatment: No Hx Asthma: Yes Hx COPD: No Hx Tuberculosis: No Hx Dementia: No Hx HIV: No 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, Stomach ulcers - Surgical History Hx Coronary Stent: No Hx Open Heart Surgery: No Hx Pacemaker: No Hx Internal Defibrillator: No Hx Cholecystectomy: No Hx Appendectomy: No Hx Breast Surgery: No Additional Surgical History: c-secx7, hernia, nerve, left hip replacement - Social History Smoking Status: Never Smoker Substance Use Type: None - Medications Home Medications: Home Medications Medication Instructions Recorded Confirmed Last Taken Type Hydroxyurea [Hydrea] 500 mg PO DAILY #30 cap 09/19/17 03/28/18 Unknown Rx Oxycodone HCl/Acetaminophen 1 each PO Q6HR PRN #12 tablet 09/19/17 03/28/18 Unknown Rx [Percocet 10/325 mg] Cyclobenzaprine [Flexeril 10 MG 10 mg PO TID PRN 03/28/18 03/28/18 Unknown History TAB] Doxycycline [Vibramycin CAP] 100 mg PO BID 03/28/18 03/28/18 Unknown History Folic Acid [Folvite] 1 mg PO DAILY 03/28/18 03/28/18 Unknown History Sennosides [Senna Lax] 8.6 mg PO QHS 03/28/18 03/28/18 Unknown History Famotidine [Pepcid] 20 mg PO BID PRN #30 tablet 04/01/18 Unknown Rx HYDROcodone/APAP 5-325 [[place] 1 each PO Q6HR PRN #12 tablet 05/29/18 Unknown Rx 5-325 mg TAB] diphenhydrAMINE [Benadryl CAP] 25 mg PO Q8H PRN #20 capsule 05/29/18 Unknown Rx ED Review of Systems ROS: Stated complaint: SICKLE CELL Other details as noted in HPI Comment: All other systems reviewed and negative Constitutional: denies: chills, fever Eyes: denies: eye pain, eye discharge, vision change ENT: denies: ear pain, throat pain Respiratory: denies: cough, shortness of breath, wheezing Cardiovascular: denies: chest pain, palpitations Gastrointestinal: denies: abdominal pain, nausea, diarrhea Genitourinary: denies: urgency, dysuria, discharge Musculoskeletal: arthralgia, myalgia Skin: denies: rash, lesions Neurological: denies: headache, weakness, paresthesias Physical Exam - Physical Exam Vital Signs: Vital Signs 05/29/18 12:15 Temperature 98.6 F Pulse Rate 87 Respiratory 16 Rate Blood Pressure 125/60 O2 Sat by Pulse 98 Oximetry Physical Exam: GENERAL: The patient is well-developed well-nourished. HENT: Normocephalic. Atraumatic. Patient has moist mucous membranes. EYES: Extraocular motions are intact. NECK: Supple. Trachea is midline. CHEST/LUNGS: Clear to auscultation. There is no respiratory distress noted. HEART/CARDIOVASCULAR: Regular. There is no tachycardia. There is no murmur. ABDOMEN: Abdomen is soft, nontender. Patient has normal bowel sounds. There is no abdominal distention. SKIN: Skin is warm and dry. NEURO: The patient is awake, alert, and oriented. The patient is cooperative. The patient has no focal neurologic deficits. The patient has normal speech. MUSCULOSKELETAL: There is no tenderness or deformity. There is no limitation range of motion. There is no evidence of acute injury. ED Course Vital Signs 05/29/18 12:15 Temperature 98.6 F Pulse Rate 87 Respiratory 16 Rate Blood Pressure 125/60 O2 Sat by Pulse 98 Oximetry ED Medical Decision Making - Lab Data Result diagrams: 05/29/18 20:40 05/29/18 20:40 - Medical Decision Making Patient presents to the emergency department with complaint of continued lower extremity pain that she believes is a sickle cell pain crisis. Patient's labs are mostly unremarkable. There is no significant anemia. Her reticulocyte count is about 1. No electrolyte abnormalities. Patient was given some IV fluid and a few doses of pain medication. She was reevaluated multiple times for multiple hours and is feeling improved. Vital signs stable throughout her ED course. She has no complaint of any chest pain, shortness of breath and does not have any fever. She does not appear to have any signs of chest crisis or any other hematologic emergency. She says that she has an appointment with her bakery helper coming up early next week. I did check the [employer] prescription monitoring and she did have one recent narcotic prescription from this emergency department from her last visit. I have given her a less than 3 day supply of some pain medication to get to her bakery helper. She will return to the ER with any worsening of her symptoms or any acute distress. - Differential Diagnosis sickle cell pain crisis, muscle spasm, electrolyte abnormalities Critical Care Time: No Critical care attestation.: If time is entered above; I have spent that time in minutes in the direct care of this critically ill patient, excluding procedure time. ED Disposition Clinical Impression: Sickle cell crisis, Bilateral lower extremity pain Disposition: DC-01 TO HOME OR SELFCARE Is pt being admited?: No Condition: Stable Instructions: Sickle Cell Crisis (ED) Additional Instructions: Please follow-up with your bakery helper as soon as possible. Return to the emergency Department with any worsening of your symptoms or any acute distress. You have been prescribed a medication that is sedating and therefore should not be taken prior to driving, working, and responsible for children and in no way should be mixed with alcohol of any quantity. Prescriptions: diphenhydrAMINE [Benadryl CAP] 25 mg PO Q8H PRN #20 capsule PRN Reason: Itching HYDROcodone/APAP 5-325 [[place] 5-325 mg TAB] 1 each PO Q6HR PRN #12 tablet PRN Reason: Pain Referrals: URI MURCIA DO [Staff Physician] - [facility], [Primary Care Provider] - [facility] Time of Disposition: 22:58
[2018-05-29 20:48] LABS: Basophils # (Auto) 0.1 K/mm3 (0.0-0.1); Basophils % (Auto) 1.6 % (0.0-1.8); Eosinophils # (Auto) 0.1 K/mm3 (0.0-0.4); Eosinophils % (Auto) 1.8 % (0.0-4.3); Hematocrit 29.4 % (30.3-42.9); Hemoglobin 10.1 gm/dl (10.1-14.3); Lymphocytes # (Auto) 2.8 K/mm3 (1.2-5.4); Lymphocytes % (Auto) 40.1 % (13.4-35.0); Mean Corpuscular HGB Conc 34 % (30-34); Mean Corpuscular Hemoglobin 27 pg (28-32); Mean Corpuscular Volume 78 fl (79-97); Monocytes # (Auto) 0.5 K/mm3 (0.0-0.8); Monocytes % (Auto) 6.8 % (0.0-7.3); Platelet Count 294 K/mm3 (140-440); Red Blood Count 3.78 M/mm3 (3.65-5.03)
[2018-05-29] MEDS ORDERED: DILAUDID IV ONE ×2 (20:51→22:11)
[2018-05-29 20:59] LABS: Alanine Aminotransferase 10 units/L (7-56); BUN/Creatinine Ratio 16; Blood Urea Nitrogen 8 mg/dL (7-17); Calcium 9.2 mg/dL (8.4-10.2); Hemolysis Index 42
[2018-05-29] MEDS ORDERED: BENADRYL IV ONE (22:12)
[2018-05-29 23:39] VITALS: BP 106/55
== END 2018-05-29 23:49 | disposition home or self-care (01) ==
LOC: ED 12:07
DX: D57.00 Hb-SS disease with crisis, unspecified (principal); K21.9 Gastro-esophageal reflux disease without esophagitis; M19.90 Unspecified osteoarthritis, unspecified site; J45.909 Unspecified asthma, uncomplicated; Z86.718 Personal history of other venous thrombosis and embolism
CPT/HCPCS: 36415; 80053; 82550; 84703; 85025; 85045; 96365; 96366; 96375; 96376; 99283; J1170; J1200

== ENCOUNTER 2018-06-03 19:30 | Emergency (ER) | payer MEDICAID ==
[2018-06-03 19:57] VITALS: BP 115/57
[2018-06-03 20:52] LABS: Bacteria,Urine 1+ /HPF (Negative); Bilirubin,Urine NEG (Negative); Blood,Urine SM (Negative); Color,Urine Yellow (Yellow); Mucus,Urine 3+ /HPF
[2018-06-03 20:57] LABS: HCG Qualitative,Urine Negative (Negative)
--- NOTE | 2018-06-03 22:38 | Emergency Department Report ---
ED Female HPI - General Chief complaint: Urogenital-Female Stated complaint: LOWER STOMACH PAINS Time Seen by Provider: 06/03/18 22:01 Source: patient Mode of arrival: Ambulatory Limitations: No Limitations - History of Present Illness Initial comments: 37-year-old -[place] female comes in complaining of pelvic pain with yellow discharge with a bad odor. Patient's concerned about possible STD. Patient reports that she has suprapubic pelvic pain. She is sexually active with males one partner unprotected her pelvic pain started on 05/23/2018. She tried taking Tylenol for pain but did not help. 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 Patient is currently taking hydroxyurea and folate acid. Patient denies any fever or chills no nausea no vomiting. MD Complaint: vaginal discharge, dysuria, pelvic pain -: week(s) (2) Location: suprapubic Radiation: non-radiating Severity scale (0 -10): 7 Quality: cramping, aching Consistency: constant Improves with: none Worsens with: none Are you Now?: No Last Menstrual Period: 05/18/18 EDC: 02/22/19 Associated Symptoms: vaginal discharge, dysuria. denies: nausea/vomiting, fever /chills - Related Data Sexually active: Yes (men) : 12 Para: 8 Home Medications Medication Instructions Recorded Confirmed Last Taken Cyclobenzaprine [Flexeril 10 MG 10 mg PO TID PRN 03/28/18 03/28/18 Unknown TAB] Doxycycline [Vibramycin CAP] 100 mg PO BID 03/28/18 03/28/18 Unknown Folic Acid [Folvite] 1 mg PO DAILY 03/28/18 03/28/18 Unknown Sennosides [Senna Lax] 8.6 mg PO QHS 03/28/18 03/28/18 Unknown Previous Rx's Medication Instructions Recorded Last Taken Type Hydroxyurea [Hydrea] 500 mg PO DAILY #30 cap 09/19/17 Unknown Rx Oxycodone HCl/Acetaminophen 1 each PO Q6HR PRN #12 tablet 09/19/17 Unknown Rx [Percocet 10/325 mg] Famotidine [Pepcid] 20 mg PO BID PRN #30 tablet 04/01/18 Unknown Rx HYDROcodone/APAP 5-325 [Justice 1 each PO Q6HR PRN #12 tablet 05/29/18 Unknown Rx 5-325 mg TAB] diphenhydrAMINE [Benadryl CAP] 25 mg PO Q8H PRN #20 capsule 05/29/18 Unknown Rx Allergies Allergy/AdvReac Type Severity Reaction Status Date / Time NSAIDS (Non-Steroidal Allergy Intermediate Hives Verified 07/19/17 14:04 Anti-Inflamma Sulfa (Sulfonamide Allergy Unknown Verified 12/08/17 17:26 Antibiotics) ED Review of Systems ROS: Stated complaint: LOWER STOMACH PAINS Other details as noted in HPI Comment: All other systems reviewed and negative Genitourinary: dysuria, frequency, discharge, other (pelvic pain) ED Past Medical Hx - Past Medical History Hx Hypertension: No Hx CVA: No Hx Heart Attack/AMI: No Hx Congestive Heart Failure: No Hx Diabetes: No Hx Deep Vein Thrombosis: Yes Hx Pulmonary Embolism: No Hx GERD: Yes Hx Liver Disease: No Hx Renal Disease: No Hx Sickle Cell Disease: Yes Hx Arthritis: Yes Hx Headaches / Migraines: No Hx Seizures: No Hx Kidney Stones: No Hx Psychiatric Treatment: No Hx Asthma: Yes Hx COPD: No Hx Tuberculosis: No Hx Dementia: No Hx HIV: No 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, Stomach ulcers - Surgical History Hx Coronary Stent: No Hx Open Heart Surgery: No Hx Pacemaker: No Hx Internal Defibrillator: No Hx Cholecystectomy: No Hx Appendectomy: No Hx Breast Surgery: No Additional Surgical History: [id number], hernia, nerve, left hip replacement - Social History Smoking Status: Current Every Day Smoker Substance Use Type: None - Medications Home Medications: Home Medications Medication Instructions Recorded Confirmed Last Taken Type Hydroxyurea [Hydrea] 500 mg PO DAILY #30 cap 09/19/17 03/28/18 Unknown Rx Oxycodone HCl/Acetaminophen 1 each PO Q6HR PRN #12 tablet 09/19/17 03/28/18 Unknown Rx [Percocet 10/325 mg] Cyclobenzaprine [Flexeril 10 MG 10 mg PO TID PRN 03/28/18 03/28/18 Unknown History TAB] Doxycycline [Vibramycin CAP] 100 mg PO BID 03/28/18 03/28/18 Unknown History Folic Acid [Folvite] 1 mg PO DAILY 03/28/18 03/28/18 Unknown History Sennosides [Senna Lax] 8.6 mg PO QHS 03/28/18 03/28/18 Unknown History Famotidine [Pepcid] 20 mg PO BID PRN #30 tablet 04/01/18 Unknown Rx HYDROcodone/APAP 5-325 [Justice 1 each PO Q6HR PRN #12 tablet 05/29/18 Unknown Rx 5-325 mg TAB] diphenhydrAMINE [Benadryl CAP] 25 mg PO Q8H PRN #20 capsule 05/29/18 Unknown Rx ED Physical Exam - General Limitations: No Limitations General appearance: alert, in no apparent distress - Eye Eye exam: Present: EOMI - ENT ENT exam: Present: mucous membranes moist - Respiratory Respiratory exam: Present: normal lung sounds bilaterally. Absent: respiratory distress - Cardiovascular Cardiovascular Exam: Present: regular rate, normal rhythm. Absent: systolic murmur, diastolic murmur, rubs, gallop - GI/Abdominal GI/Abdominal exam: Present: soft, tenderness (suprapubic). Absent: distended - External exam: Present: normal external exam Speculum exam: Present: normal speculum exam Bi-manual exam: Present: adnexal tenderness, uterine tenderness - Extremities Exam Extremities exam: Present: normal inspection - Back Exam Back exam: Present: full ROM - Neurological Exam Neurological exam: Present: alert, oriented X3 - Psychiatric Psychiatric exam: Present: normal affect, normal mood - Skin Skin exam: Present: warm, dry, intact, normal color. Absent: rash ED Course Vital Signs 06/03/18 19:56 Temperature 99.5 F Pulse Rate 88 Respiratory 18 Rate Blood Pressure 115/57 [Right] O2 Sat by Pulse 97 Oximetry ED Medical Decision Making - Medical Decision Making Patient has been evaluated by this provider fast track. Wet prep and chlamydia has been obtained and sent to lab. Tylenol 3 given for pain management. Urinalysis appears to be positive for urine tract infection. We'll discharge patient on Macrobid. Critical care attestation.: If time is entered above; I have spent that time in minutes in the direct care of this critically ill patient, excluding procedure time. ED Disposition Clinical Impression: Trichomonas vaginitis, Bacterial vaginosis Disposition: TO HOME OR SELFCARE Is pt being admited?: No Does the pt Need Aspirin: No Condition: Stable Instructions: Bacterial Vaginosis (ED), Trichomoniasis (ED), Sexually Transmitted Diseases (ED), Safe Sex (ED) Additional Instructions: Please refrain from having intercourse until your partner is treated. Please use condoms when having intercourse. As his prevention from getting STDs. I highly recommended for you to follow up at the health department for HIV hepatitis herpes syphilis testing. Referrals: NATE BONDS MD [Primary Care Provider] - 3-5 Days [facility] [Provider Group] - 3-5 Days [facility] [Outside] - 3-[address] [facility] [Outside] - 3-5 Days [facility] [Outside] - 3-5 Days [facility] [Outside] - 3-5 Days [facility] [Outside] - 3-5 Days Forms: STI Treatment and Prevention
[2018-06-03] MEDS ORDERED: TYLENOL #3 PO ONE (22:55)
[2018-06-04] MEDS ORDERED: FLAGYL PO ONE (00:09)
== END 2018-06-04 00:50 | disposition home or self-care (01) ==
LOC: ED 19:30
DX: A59.01 Trichomonal vulvovaginitis (principal); N76.0 Acute vaginitis; B96.89 Other specified bacterial agents as the cause of diseases classified elsewhere; Z88.2 Allergy status to sulfonamides; Z88.8 Allergy status to other drugs, medicaments and biological substances
CPT/HCPCS: 81001; 81025; 87086; 87210; 87591